=== PATIENT | male | born 1975 | race Two or more races ===

== ENCOUNTER 2018-11-15 17:47 | Inpatient (IN) | payer MEDICAID ==
[~2018-11-15] VITALS: Ht 165.1 cm; Wt 44.9 kg
[2018-11-15 18:00] VITALS: BP 134/84
--- NOTE | 2018-11-15 18:01 | NUR ---
ED Nurse Note: pt brought in to ER by ambulance from street due to hyperglycemia. pt aao x4 and ambulatory but weak. calm and cooperative and fatigued. skin dry but intact. no acute distress noted at this time. pt is in gown and on registered nurse cardiac telemetry.
--- NOTE | 2018-11-15 18:10 | NUR ---
ED Nurse Note: critically high BS results reported to ERMD.
[2018-11-15 18:23] LABS: EOSINOPHILS % (AUTO) 0.8 % (0.0-3.0); HEMATOCRIT 33.9 % (42.0-52.0); HEMOGLOBIN 11.8 G/DL (14.2-18.0); LYMPHOCYTES % (AUTO) 16.8 % (20.0-45.0); MEAN CORPUSCULAR VOLUME 97 FL (80-99); MONOCYTES % (AUTO) 10.3 % (1.0-10.0); NEUTROPHILS % (AUTO) 71.1 % (45.0-75.0); PLATELET COUNT 390 K/UL (150-450); RED BLOOD COUNT 3.48 M/UL (4.70-6.10); RED CELL DISTRIBUTION WIDTH 11.8 % (11.6-14.8); WHITE BLOOD COUNT 5.5 K/UL (4.8-10.8)
--- NOTE | 2018-11-15 18:24 | NUR ---
ED Nurse Note: RT at bedside for ABG.
[2018-11-15 18:51] LABS: ANION GAP 19 mmol/L (5-15); BLOOD UREA NITROGEN 10 mg/dL (7-18); CALCIUM 8.5 MG/DL (8.5-10.1); CARBON DIOXIDE 18 MMOL/L (21-32); CHLORIDE 92 MMOL/L (98-107); CREATININE 0.8 MG/DL (0.55-1.30); POTASSIUM 3.7 MMOL/L (3.5-5.1); SODIUM 129 MMOL/L (136-145)
[2018-11-15 18:53] LABS: ALANINE AMINOTRANSFERASE 15 U/L (12-78); ALBUMIN 2.7 G/DL (3.4-5.0); ALBUMIN/GLOBULIN RATIO 0.6 (1.0-2.7); ALKALINE PHOSPHATASE 416 U/L (46-116); ASPARTATE AMINO TRANSFERASE 16 U/L (15-37); BILIRUBIN,TOTAL 0.4 MG/DL (0.2-1.0)
--- NOTE | 2018-11-15 18:54 | NUR ---
ED Nurse Note: ERMD at bedside.
--- NOTE | 2018-11-15 19:01 | NUR ---
HAND-OFF: Report given to JUSTIN Sesay. no orders to carry at this moment.
--- NOTE | 2018-11-15 19:03 | Emergency Room Report ---
History of Present Illness General Chief Complaint: Abnormal Labs Source: Patient Present Illness HPI Disclaimer: Please note that this report is being documented using [employer] technology. This can lead to erroneous entry secondary to incorrect interpretation by the dictating instrument. HPI: 43-year-old male with history of insulin-dependent diabetes presents for evaluation of abdominal pain, nausea fatigue and elevated glucose readings. Patient states he has not had anything to eat and is felt nauseous for 2 days. He has not had insulin in 2 months. He is a poor historian and provides little history. He is also complaining of left ankle pain. He denies recent illness such as fever, chills, nasal congestion, sore throat. He does note a nonproductive cough. Denies any diarrhea, dysuria. Cannot remember a specific injury to his left ankle. PMH: Insulin-dependent diabetes PSH: Nonspecific knee surgery Allergies: None listed Social Hx: Uses alcohol, smoke cigarettes Allergies: Coded Allergies: No Known Allergies (Unverified , 11/15/18) Nursing Documentation-PM Past Medical History: No History, Except For Hx Diabetes: Yes Review of Systems All Other Systems: negative except mentioned in HPI Physical Exam Vital Signs Date Time Temp Pulse Resp B/P (MAP) Pulse Ox O2 Delivery O2 Flow Rate FiO2 11/15/18 17:41 98.4 100 16 134/84 (101) 96 Room Air General: Awake and alert, appears uncomfortable and fatigued HEENT: NC/AT. EOMI. dry mucous membranes Cardiovascular: Tachycardic. S1 and S2 normal. No murmur appreciated Resp: Normal work of breathing. No cough, wheezing or crackles appreciated Abdomen: Abdomen is soft, nondistended. I will tenderness palpation in the epigastrium. No masses. No guarding Skin: Intact. No abrasions, laceration or rash over the exposed skin MSK: Palpation of the anterior and posterior element of the medial malleolus of the left ankle. Moderate edema. Neuro: Awake and alert. Mentating appropriately. Procedures Critical Care Time Critical Care Time Total critical care time: Approximately 45 minutes Due to a high probability of clinically significant, life threatening deterioration, the patient required the highest level of preparedness to intervene emergently and I personally spent this critical care time directly and personally managing the patient. This critical care time included obtaining a history, examining the patient, pulse oximetry, ordering and reviewing studies , ordering treatments, evaluating response to treatment and updating management plan as needed, frequent reassessment and discussion with other providers as well as arranging for ultimate disposition. This critical to care time was performed to assess and manage the high probability of life-threatening deterioration that could result in multiorgan failure. This critical care time is separate from the separately billable procedures and treating other patients. Medical Decision Making Diagnostic Impression: Primary Impression: Hyperglycemia ER Course 43-year-old male presents for evaluation of multiple complaints including hyperglycemia noted by EMS after 2 months of not having any insulin. Concern for DKA at this time. Lab work ordered immediately on patient arrival. Will start IV fluids. Will wait for potassium and then start insulin as needed. We will also obtain x-ray of the left ankle. Laboratory Tests Test 11/15/18 18:12 11/15/18 18:20 11/15/18 19:06 White Blood Count 5.5 K/UL (4.8-10.8) Red Blood Count 3.48 M/UL (4.70-6.10) L Hemoglobin 11.8 G/DL (14.2-18.0) L Hematocrit 33.9 % (42.0-52.0) L Mean Corpuscular Volume 97 FL (80-99) Mean Corpuscular Hemoglobin 34.0 PG (27.0-31.0) H Mean Corpuscular Hemoglobin Concent 34.9 G/DL (32.0-36.0) Red Cell Distribution Width 11.8 % (11.6-14.8) Platelet Count 390 K/UL (150-450) Mean Platelet Volume 4.4 FL (6.5-10.1) L Neutrophils (%) (Auto) 71.1 % (45.0-75.0) Lymphocytes (%) (Auto) 16.8 % (20.0-45.0) L Monocytes (%) (Auto) 10.3 % (1.0-10.0) H Eosinophils (%) (Auto) 0.8 % (0.0-3.0) Basophils (%) (Auto) 1.0 % (0.0-2.0) Sodium Level 129 MMOL/L (136-145) L Potassium Level 3.7 MMOL/L (3.5-5.1) Chloride Level 92 MMOL/L (98-107) L Carbon Dioxide Level 18 MMOL/L (21-32) L Anion Gap 19 mmol/L (5-15) H Blood Urea Nitrogen 10 mg/dL (7-18) Creatinine 0.8 MG/DL (0.55-1.30) Estimate Glomerular Filtration Rate > 60 mL/min (>60) Glucose Level 903 MG/DL (74-106) *H Calcium Level 8.5 MG/DL (8.5-10.1) Magnesium Level 2.0 MG/DL (1.8-2.4) Total Bilirubin 0.4 MG/DL (0.2-1.0) Aspartate Amino Transferase (AST) 16 U/L (15-37) Alanine Aminotransferase (ALT) 15 U/L (12-78) Alkaline Phosphatase 416 U/L (46-116) H Total Protein 6.9 G/DL (6.4-8.2) Albumin 2.7 G/DL (3.4-5.0) L Globulin 4.2 g/dL Albumin/Globulin Ratio 0.6 (1.0-2.7) L Acetone Level Positive-small (NEGATIVE) Arterial Blood pH 7.317 (7.350-7.450) Arterial Blood Partial Pressure CO2 30.0 mmHg (35.0-45.0) L Arterial Blood Partial Pressure O2 100.4 mmHg (75.0-100.0) H Arterial Blood HCO3 15.0 mmol/L (22.0-26.0) *L Arterial Blood Oxygen Saturation 96.5 % (95-100) Arterial Blood Base Excess -10.0 (-2-2) *L Haris Test Positive Urine Color Pale yellow Urine Appearance Clear Urine pH 6 (4.5-8.0) Urine Specific [place] 1.005 (1.005-1.035) Urine Protein Negative (NEGATIVE) Urine Glucose (UA) 4+ (NEGATIVE) H Urine Ketones 3+ (NEGATIVE) H Urine Blood Negative (NEGATIVE) Urine Nitrite Negative (NEGATIVE) Urine Bilirubin Negative (NEGATIVE) Urine Urobilinogen Normal MG/DL (0.0-1.0) Urine Leukocyte Esterase Negative (NEGATIVE) EKG Diagnostic Results EKG Time: 19:30 Rate: normal Rhythm: NSR ST Segments: no acute changes Other Impression Sinus rhythm, borderline tachycardia. Right axis. Normal intervals. No ischemic changes. Rhythm Strip Diag. Results Rhythm Strip Time: 19:30 EP Interpretation: yes Rate: 90s Rhythm: NSR, no PVC's, no ectopy Chest X-Ray Diagnostic Results Chest X-Ray Diagnostic Results : # of Views/Limited/Complete: 1 View Indication: Chest Pain Interpretation: no consolidation, no effusion, no pneumothorax Impression: No acute disease Electronically Signed by: Electronically signed by Dr. Abdoulaye Byrne Reevaluation Time: 21:41 Last Vital Signs Date Time Temp Pulse Resp B/P (MAP) Pulse Ox O2 Delivery O2 Flow Rate FiO2 11/15/18 18:23 115 16 Room Air 11/15/18 18:00 98.4 134/84 96 Status: improved Reevaluation Impression Patient found to be significantly hyperglycemic with a small gap but no significant acidosis. He was briefly put on an insulin drip and continue to receive IV fluids potassium repletion. His blood sugar quickly dropped and he was taken off insulin drip. Patient was continued on IV fluids. His pressures were initially soft in the low 90s and high 80s systolic however they continued to improve after IV fluids. He will be admitted to the stepdown unit for hyperglycemia. X-rays of the foot showed previous hardware but does not obviously show periprosthetic fracture. He will be admitted for further monitoring. Disposition: ADMITTED INPATIENT Condition: Serious Scripts No Active Prescriptions or Reported Meds Abdoulaye Byrne MD Nov 15, 2018 19:03
--- NOTE | 2018-11-15 19:12 | NUR ---
ED Nurse Note: Received report from Elio ANDERSON. Urine sent to labs.
[2018-11-15 19:15] VITALS: BP 103/78
[2018-11-15] MEDS ORDERED: NS w/KCl 20mEq 1000ml 1,000 ML IV ONE (19:30)
[2018-11-15 19:49] LABS: APPEARANCE,URINE CLEAR; BILIRUBIN, URINE NEGATIVE (NEGATIVE); COLOR,URINE PALE YELLOW; GLUCOSE, URINE (UA) 4+ (NEGATIVE); KETONES,URINE 3+ (NEGATIVE); LEUKOCYTE ESTERASE ,URINE NEGATIVE (NEGATIVE); NITRITE,URINE NEGATIVE (NEGATIVE); PH,URINE 6 (4.5-8.0); PROTEIN,URINE NEGATIVE (NEGATIVE); UROBILINOGEN,URINE NORMAL MG/DL (0.0-1.0)
[2018-11-15 21:36] VITALS: BP 101/74
--- NOTE | 2018-11-15 21:40 | NUR ---
ED Nurse Note: Patient's BP 86/53. MD made aware. Waiting for new orders.
[2018-11-15 21:53] VITALS: BP 96/56
--- NOTE | 2018-11-15 22:00 | NUR ---
ED Nurse Note: per ermd, stop insulin per Dr. Vee requestion d/t low anion gap. Will await further orders
[2018-11-15] MEDS ORDERED: Insulin Human Regular 100units/ml 3ml ONE (22:11)
[2018-11-15 22:13] VITALS: BP 105/60
[2018-11-15] MEDS ORDERED: Insulin Human Regular 100units/ml 3ml IV ONE (22:15)
--- NOTE | 2018-11-15 22:15 | NUR ---
ED Nurse Note: Received verbal order to DC regular insulin. BS 275.
--- NOTE | 2018-11-15 22:30 | NUR ---
ED Nurse Note: Dr. Brito at bedside.
--- NOTE | 2018-11-15 22:58 | NUR ---
ED Nurse Note: Xray done at bedside.
[2018-11-15 23:01] VITALS: BP 109/74
--- NOTE | 2018-11-15 23:30 | NUR ---
NURSE NOTES: Dr. Lanier is here to give me admission orders.
--- NOTE | 2018-11-15 23:38 | NUR ---
TRANSFER TO FLOOR: Patient transferred to SDU unit, Report given to Kj ANDERSON. Patient is alert and oriented, verbally responsive. Afebrile. No SOB. Breathing even and unlabored. On Kcl 20meq patent and infusing well. With left and right upper arm IV line 20g patent and intact. Belongings was given to the patient.
--- NOTE | 2018-11-15 23:58 | NUR ---
NURSE NOTES: Patient receivedfrom [employer]OR. Patient is alert and oriented X 4. Patient has Right and L upper arms 20G IV. Patient has Left foot that is more swollen than the right foot. Patient is able to make needs known. Current VS 89/56, HR 84 NSR, 98.1F, RR 165, SpO2 98% while on room air. SDU Admission glucose is 282. Will continue to monitor.
[2018-11-16] VITALS (7 sets, daily range): BP systolic 89–106; BP diastolic 49–60
--- NOTE | 2018-11-16 00:01 | NUR ---
NURSE NOTES: NS hung [id number].
--- NOTE | 2018-11-16 02:00 | NUR ---
NURSE NOTES: Patient is sleeping, no sign of any pain per FLACC score of 0/10. Patients BP is 90/56, HR is 86 NSR, Spo2 100%. Patient is easily arousable to command.
--- NOTE | 2018-11-16 04:00 | NUR ---
NURSE NOTES: Blood drawn and sent to lab. Patient remains stable at this, BP is 96/49 HR is 76 NSR, afebrile. Patient is sleeping and easily arousable. Will continue to monitor.
[2018-11-16 04:47] LABS: BASOPHILS % (AUTO) 1.6 % (0.0-2.0); EOSINOPHILS % (AUTO) 3.1 % (0.0-3.0); HEMATOCRIT 33.1 % (42.0-52.0); HEMOGLOBIN 11.3 G/DL (14.2-18.0); LYMPHOCYTES % (AUTO) 30.7 % (20.0-45.0); MEAN CORPUSCULAR VOLUME 100 FL (80-99); MONOCYTES % (AUTO) 9.9 % (1.0-10.0); NEUTROPHILS % (AUTO) 54.6 % (45.0-75.0); PLATELET COUNT 383 K/UL (150-450); RED BLOOD COUNT 3.32 M/UL (4.70-6.10); RED CELL DISTRIBUTION WIDTH 11.9 % (11.6-14.8)
[2018-11-16 05:04] LABS: ANION GAP 8 mmol/L (5-15); BLOOD UREA NITROGEN 5 mg/dL (7-18); CALCIUM 7.4 MG/DL (8.5-10.1); CARBON DIOXIDE 24 MMOL/L (21-32); CHLORIDE 110 MMOL/L (98-107); CREATININE 0.3 MG/DL (0.55-1.30); POTASSIUM 3.1 MMOL/L (3.5-5.1); SODIUM 142 MMOL/L (136-145)
[2018-11-16] MEDS: NovoLOG Insulin Flexpen SUBQ SCH ×7 (05:06→20:51)
--- NOTE | 2018-11-16 06:00 | NUR ---
NURSE NOTES: Glucose is 192, coverage provided.
--- NOTE | 2018-11-16 06:27 | NUR ---
NURSE NOTES: Dr. Rivera ordered 8 units novolog scheduled ACHS
--- NOTE | 2018-11-16 06:59 | NUR ---
HAND-OFF: Report given to Radha ANDERSON. Patient alert upon command. HR remains NSR. No distress at this time. Endorsed plan of care to oncoming RN.
--- NOTE | 2018-11-16 07:00 | NUR ---
NURSE NOTES: Received report from JUSTIN Penaloza. Observed patient in bed, asleep, arousable to verbal stimuli; mostly [place] speaking. On room air, no acute respiratory distress noted. Left upper arm IV intact and patent with IV fluids infusing at prescribed rate. No s/s of pain/discomfort at this time. Safety precautions in place,bed locked, alarmed, and in lowest position, side rails up x3 and call light within reach. Will continue to monitor.
--- NOTE | 2018-11-16 07:32 | General Progress Note ---
Assessment/Plan Problem List: (1) Diabetes mellitus with ketoacidosis ICD Codes: E11.10 - Type 2 diabetes mellitus with ketoacidosis without coma SNOMED: 31487424, 800835162 (2) Hyperglycemia ICD Codes: R73.9 - Hyperglycemia, unspecified SNOMED: 58597882 (3) Nausea & vomiting ICD Codes: R11.2 - Nausea with vomiting, unspecified SNOMED: 30969129 (4) Abdominal pain ICD Codes: R10.9 - Unspecified abdominal pain SNOMED: 08621171 Assessment/Plan: treat for DKA nausea most likely due to above fu labs on ADA diet will fu Subjective ROS Limited/Unobtainable: Yes Allergies: Coded Allergies: No Known Allergies (Unverified , 11/15/18) Objective Last 24 Hour Vital Signs Date Time Temp Pulse Resp B/P (MAP) Pulse Ox O2 Delivery O2 Flow Rate FiO2 11/16/18 04:00 84 11/16/18 04:00 97.8 76 20 96/49 (65) 97 11/16/18 04:00 Room Air 11/16/18 00:30 90 16 91/57 (68) 99 11/16/18 00:00 98.1 84 20 89/56 (67) 97 11/16/18 00:00 Room Air 11/16/18 00:00 Room Air 11/16/18 00:00 86 11/15/18 23:38 98.2 98 15 109/74 100 Room Air 11/15/18 23:01 98.2 98 15 109/74 100 Room Air 11/15/18 22:13 91 18 105/60 100 Room Air 11/15/18 21:53 90 21 96/56 100 Room Air 11/15/18 21:36 98.5 89 18 101/74 100 Room Air 11/15/18 19:15 98.5 104 25 103/78 99 Room Air 11/15/18 18:23 115 16 Room Air 11/15/18 18:00 98.4 115 16 134/84 96 Room Air 11/15/18 17:41 98.4 100 16 134/84 (101) 96 Room Air Intake and Output 11/15/18 11/16/18 18:59 06:59 Intake Total 0 ml 1825 ml Output Total 300 ml Balance 0 ml 1525 ml Intake Oral 0 ml IV Total 1825 ml Output Urine Total 300 ml # Voids 1 Laboratory Tests 11/15/18 18:12: White Blood Count 5.5, Red Blood Count 3.48L, Hemoglobin 11.8L, Hematocrit 33.9L , Mean Corpuscular Volume 97, Mean Corpuscular Hemoglobin 34.0H, Mean Corpuscular Hemoglobin Concent 34.9, Red Cell Distribution Width 11.8, Platelet Count 390, Mean Platelet Volume 4.4L, Neutrophils (%) (Auto) 71.1, Lymphocytes ( %) (Auto) 16.8L, Monocytes (%) (Auto) 10.3H, Eosinophils (%) (Auto) 0.8, Basophils (%) (Auto) 1.0, Sodium Level 129L, Potassium Level 3.7, Chloride Level 92L, Carbon Dioxide Level 18L, Anion Gap 19H, Blood Urea Nitrogen 10, Creatinine 0.8, Estimat Glomerular Filtration Rate > 60, Glucose Level 903*H, Calcium Level 8.5, Magnesium Level 2.0, Total Bilirubin 0.4, Aspartate Amino Transf (AST/SGOT) 16, Alanine Aminotransferase (ALT/SGPT) 15, Alkaline Phosphatase 416H, Total Protein 6.9, Albumin 2.7L, Globulin 4.2, Albumin/ Globulin Ratio 0.6L, Acetone Level Positive-small 11/15/18 18:20: Arterial Blood pH 7.317L, Arterial Blood Partial Pressure CO2 30.0L, Arterial Blood Partial Pressure O2 100.4H, Arterial Blood HCO3 15.0*L, Arterial Blood Oxygen Saturation 96.5, Arterial Blood Base Excess -10.0*L, Haris Test Positive 11/15/18 19:06: Urine Color Pale yellow, Urine Appearance Clear, Urine pH 6, Urine Specific [place] 1.005, Urine Protein Negative, Urine Glucose (UA) 4+H, Urine Ketones 3+H , Urine Blood Negative, Urine Nitrite Negative, Urine Bilirubin Negative, Urine Urobilinogen Normal, Urine Leukocyte Esterase Negative 11/16/18 04:00: White Blood Count 6.0, Red Blood Count 3.32L, Hemoglobin 11.3L, Hematocrit 33.1L , Mean Corpuscular Volume 100H, Mean Corpuscular Hemoglobin 34.1H, Mean Corpuscular Hemoglobin Concent 34.2, Red Cell Distribution Width 11.9, Platelet Count 383, Mean Platelet Volume 4.7L, Neutrophils (%) (Auto) 54.6, Lymphocytes ( %) (Auto) 30.7, Monocytes (%) (Auto) 9.9, Eosinophils (%) (Auto) 3.1H, Basophils (%) (Auto) 1.6, Sodium Level 142#, Potassium Level 3.1L, Chloride Level 110H, Carbon Dioxide Level 24, Anion Gap 8, Blood Urea Nitrogen 5L, Creatinine 0.3#L, Estimat Glomerular Filtration Rate > 60, Glucose Level 198#H, Calcium Level 7.4L, Magnesium Level [Pending], Total Bilirubin [Pending], Aspartate Amino Transf (AST/SGOT) [Pending], Alanine Aminotransferase (ALT/SGPT ) [Pending], Alkaline Phosphatase [Pending], Total Protein [Pending], Albumin [ Pending], Hemoglobin A1c 13.1H, Uric Acid [Pending], Phosphorus Level [Pending] , Iron Level [Pending], Unsaturated Iron Binding [Pending], Ferritin [Pending], Direct Bilirubin [Pending], Triglycerides Level [Pending], Cholesterol Level [ Pending], LDL Cholesterol [Pending], HDL Cholesterol [Pending], Cholesterol/HDL Ratio [Pending], Vitamin B12 Level [Pending], Folate [Pending] Height (Feet): 5 Height (Inches): 5.00 Weight (Pounds): 100 General Appearance: alert EENT: PERRL/EOMI Neck: supple Cardiovascular: normal rate Respiratory/Chest: lungs clear Abdomen: normal bowel sounds, non tender, soft Extremities: non-tender Surjit Car MD Nov 16, 2018 07:32
[2018-11-16 07:41] LABS: ALANINE AMINOTRANSFERASE 12 U/L (12-78); ALKALINE PHOSPHATASE 315 U/L (46-116); ASPARTATE AMINO TRANSFERASE 17 U/L (15-37); BILIRUBIN,DIRECT < 0.1 MG/DL (0.0-0.3); BILIRUBIN,TOTAL 0.2 MG/DL (0.2-1.0); CHOLESTEROL 150 MG/DL (< 200); HDL CHOLESTEROL 42 MG/DL (40-60); PHOSPHORUS 2.8 MG/DL (2.5-4.9); TRIGLYCERIDES 68 MG/DL (30-150)
--- NOTE | 2018-11-16 08:46 | Pulmonology Progress Note ---
Assessment/Plan Assessment/Plan Pulmonary Consultation HPI Patient is a 43-year old man with history of Insulin Dependent Diabetes Mellitus who presents with DKA, c/o abdominal pain, nausea fatigue and elevated glucose readings. He has not had insulin in 2 months. He is also complaining of left ankle pain. He denies recent illness such as fever, chills, nasal congestion, sore throat. He does note a nonproductive cough. Denies any diarrhea, dysuria. Denies injury. PMH: Insulin Dependent Diabetes Mellitus PSH: Nonspecific knee surgery Allergies: NKDA Social Hx: Uses alcohol, smoke cigarettes All Other Systems: negative except mentioned in HPI Physical Exam Vital Signs Noted Date Time Temp Pulse Resp B/P (MAP) Pulse Ox O2 Delivery O2 Flow Rate FiO2 11/15/18 17:41 98.4 100 16 134/84 (101) 96 Room Air General: Awake and alert, appears uncomfortable and fatigued HEENT: NC/AT. EOMI. dry mucous membranes Cardiovascular: Tachycardic. S1 and S2 normal. No murmur appreciated Resp: Normal work of breathing. No cough, wheezing or crackles appreciated Abdomen: Abdomen is soft, nondistended. Somel tenderness palpation in the epigastrium. No masses. No guarding Skin: Intact. No abrasions, laceration or rash over the exposed skin MSK: Palpation of the anterior and posterior element of the medial malleolus of the left ankle. Some edema. Neuro: Awake and alert. Mentating appropriately. Impression: Insulin Dependent Diabetes Mellitus DKA, Hyperglycemia Ankle pain Plan: IVF Insulin gtt in ED - subsequently SQ Insulin - Lantus and ISS CXR negative for infiltrate Monitor labs PPX Test 11/15/18 18:12 11/15/18 18:20 11/15/18 19:06 White Blood Count 5.5 K/UL (4.8-10.8) Red Blood Count 3.48 M/UL (4.70-6.10) L Hemoglobin 11.8 G/DL (14.2-18.0) L Hematocrit 33.9 % (42.0-52.0) L Mean Corpuscular Volume 97 FL (80-99) Mean Corpuscular Hemoglobin 34.0 PG (27.0-31.0) H Mean Corpuscular Hemoglobin Concent 34.9 G/DL (32.0-36.0) Red Cell Distribution Width 11.8 % (11.6-14.8) Platelet Count 390 K/UL (150-450) Mean Platelet Volume 4.4 FL (6.5-10.1) L Neutrophils (%) (Auto) 71.1 % (45.0-75.0) Lymphocytes (%) (Auto) 16.8 % (20.0-45.0) L Monocytes (%) (Auto) 10.3 % (1.0-10.0) H Eosinophils (%) (Auto) 0.8 % (0.0-3.0) Basophils (%) (Auto) 1.0 % (0.0-2.0) Sodium Level 129 MMOL/L (136-145) L Potassium Level 3.7 MMOL/L (3.5-5.1) Chloride Level 92 MMOL/L (98-107) L Carbon Dioxide Level 18 MMOL/L (21-32) L Anion Gap 19 mmol/L (5-15) H Blood Urea Nitrogen 10 mg/dL (7-18) Creatinine 0.8 MG/DL (0.55-1.30) Estimate Glomerular Filtration Rate > 60 mL/min (>60) Glucose Level 903 MG/DL (74-106) *H Calcium Level 8.5 MG/DL (8.5-10.1) Magnesium Level 2.0 MG/DL (1.8-2.4) Total Bilirubin 0.4 MG/DL (0.2-1.0) Aspartate Amino Transferase (AST) 16 U/L (15-37) Alanine Aminotransferase (ALT) 15 U/L (12-78) Alkaline Phosphatase 416 U/L (46-116) H Total Protein 6.9 G/DL (6.4-8.2) Albumin 2.7 G/DL (3.4-5.0) L Globulin 4.2 g/dL Albumin/Globulin Ratio 0.6 (1.0-2.7) L Acetone Level Positive-small (NEGATIVE) Arterial Blood pH 7.317 (7.350-7.450) Arterial Blood Partial Pressure CO2 30.0 mmHg (35.0-45.0) L Arterial Blood Partial Pressure O2 100.4 mmHg (75.0-100.0) H Arterial Blood HCO3 15.0 mmol/L (22.0-26.0) *L Arterial Blood Oxygen Saturation 96.5 % (95-100) Arterial Blood Base Excess -10.0 (-2-2) *L Haris Test Positive Urine Color Pale yellow Urine Appearance Clear Urine pH 6 (4.5-8.0) Urine Specific [place] 1.005 (1.005-1.035) Urine Protein Negative (NEGATIVE) Urine Glucose (UA) 4+ (NEGATIVE) H Urine Ketones 3+ (NEGATIVE) H Urine Blood Negative (NEGATIVE) Urine Nitrite Negative (NEGATIVE) Urine Bilirubin Negative (NEGATIVE) Urine Urobilinogen Normal MG/DL (0.0-1.0) Urine Leukocyte Esterase Negative (NEGATIVE) EKG: Rate: normal Rhythm: NSR, no acute changes. Normal intervals. No ischemic changes. Chest X-Ray no consolidation, no effusion, no pneumothorax X-rays of the foot: previous hardware but does not obviously show periprosthetic fracture. He will be admitted for further monitoring. Subjective ROS Limited/Unobtainable: No Allergies: Coded Allergies: No Known Allergies (Unverified , 11/15/18) Objective Last 24 Hour Vital Signs Date Time Temp Pulse Resp B/P (MAP) Pulse Ox O2 Delivery O2 Flow Rate FiO2 11/16/18 04:00 84 11/16/18 04:00 97.8 76 20 96/49 (65) 97 11/16/18 04:00 Room Air 11/16/18 00:30 90 16 91/57 (68) 99 11/16/18 00:00 98.1 84 20 89/56 (67) 97 11/16/18 00:00 Room Air 11/16/18 00:00 Room Air 11/16/18 00:00 86 11/15/18 23:38 98.2 98 15 109/74 100 Room Air 11/15/18 23:01 98.2 98 15 109/74 100 Room Air 11/15/18 22:13 91 18 105/60 100 Room Air 11/15/18 21:53 90 21 96/56 100 Room Air 11/15/18 21:36 98.5 89 18 101/74 100 Room Air 11/15/18 19:15 98.5 104 25 103/78 99 Room Air 11/15/18 18:23 115 16 Room Air 11/15/18 18:00 98.4 115 16 134/84 96 Room Air 11/15/18 17:41 98.4 100 16 134/84 (101) 96 Room Air Intake and Output 11/15/18 11/16/18 18:59 06:59 Intake Total 0 ml 1825 ml Output Total 300 ml Balance 0 ml 1525 ml Intake Oral 0 ml IV Total 1825 ml Output Urine Total 300 ml # Voids 1 Microbiology Date/Time Source Procedure Growth Status 11/15/18 20:17 Rectum Received Laboratory Tests 11/15/18 18:12: White Blood Count 5.5, Red Blood Count 3.48L, Hemoglobin 11.8L, Hematocrit 33.9L , Mean Corpuscular Volume 97, Mean Corpuscular Hemoglobin 34.0H, Mean Corpuscular Hemoglobin Concent 34.9, Red Cell Distribution Width 11.8, Platelet Count 390, Mean Platelet Volume 4.4L, Neutrophils (%) (Auto) 71.1, Lymphocytes ( %) (Auto) 16.8L, Monocytes (%) (Auto) 10.3H, Eosinophils (%) (Auto) 0.8, Basophils (%) (Auto) 1.0, Sodium Level 129L, Potassium Level 3.7, Chloride Level 92L, Carbon Dioxide Level 18L, Anion Gap 19H, Blood Urea Nitrogen 10, Creatinine 0.8, Estimat Glomerular Filtration Rate > 60, Glucose Level 903*H, Calcium Level 8.5, Magnesium Level 2.0, Total Bilirubin 0.4, Aspartate Amino Transf (AST/SGOT) 16, Alanine Aminotransferase (ALT/SGPT) 15, Alkaline Phosphatase 416H, Total Protein 6.9, Albumin 2.7L, Globulin 4.2, Albumin/ Globulin Ratio 0.6L, Acetone Level Positive-small 11/15/18 18:20: Arterial Blood pH 7.317L, Arterial Blood Partial Pressure CO2 30.0L, Arterial Blood Partial Pressure O2 100.4H, Arterial Blood HCO3 15.0*L, Arterial Blood Oxygen Saturation 96.5, Arterial Blood Base Excess -10.0*L, Haris Test Positive 11/15/18 19:06: Urine Color Pale yellow, Urine Appearance Clear, Urine pH 6, Urine Specific [place] 1.005, Urine Protein Negative, Urine Glucose (UA) 4+H, Urine Ketones 3+H , Urine Blood Negative, Urine Nitrite Negative, Urine Bilirubin Negative, Urine Urobilinogen Normal, Urine Leukocyte Esterase Negative 11/16/18 04:00: White Blood Count 6.0, Red Blood Count 3.32L, Hemoglobin 11.3L, Hematocrit 33.1L , Mean Corpuscular Volume 100H, Mean Corpuscular Hemoglobin 34.1H, Mean Corpuscular Hemoglobin Concent 34.2, Red Cell Distribution Width 11.9, Platelet Count 383, Mean Platelet Volume 4.7L, Neutrophils (%) (Auto) 54.6, Lymphocytes ( %) (Auto) 30.7, Monocytes (%) (Auto) 9.9, Eosinophils (%) (Auto) 3.1H, Basophils (%) (Auto) 1.6, Sodium Level 142#, Potassium Level 3.1L, Chloride Level 110H, Carbon Dioxide Level 24, Anion Gap 8, Blood Urea Nitrogen 5L, Creatinine 0.3#L, Estimat Glomerular Filtration Rate > 60, Glucose Level 198#H, Calcium Level 7.4L, Magnesium Level 1.7L, Total Bilirubin 0.2, Aspartate Amino Transf (AST/SGOT) 17, Alanine Aminotransferase (ALT/SGPT) 12, Alkaline Phosphatase 315H, Total Protein 5.2L, Albumin 2.0L, Hemoglobin A1c 13.1H, Uric Acid 1.9L, Phosphorus Level 2.8, Iron Level [Pending], Unsaturated Iron Binding [Pending], Ferritin [Pending], Direct Bilirubin < 0.1, Triglycerides Level 68, Cholesterol Level 150, LDL Cholesterol 89, HDL Cholesterol 42, Cholesterol/HDL Ratio 3.6, Vitamin B12 Level [Pending], Folate [Pending] Current Medications Medications (Trade) Dose Ordered Sig/Yasemin Route PRN Reason Start Time Stop Time Status Last Admin Dose Admin Acetaminophen (Tylenol) 650 mg Q6H PRN ORAL Mild Pain/Temp > 100.5 11/15/18 23:15 12/15/18 23:14 Dextrose (Dextrose 50%) 25 ml Q30M PRN IV Hypoglycemia 11/15/18 23:15 12/15/18 23:14 Dextrose (Dextrose 50%) 50 ml Q30M PRN IV Hypoglycemia 11/15/18 23:15 12/15/18 23:14 Heparin Sodium (Porcine) (Heparin 5000 units/ml) 5,000 units EVERY 12 HOURS SUBQ 11/16/18 09:00 12/16/18 08:59 Insulin Aspart (NovoLOG) BEFORE MEALS AND HS SUBQ 11/16/18 06:30 12/16/18 06:29 11/16/18 05:06 Insulin Aspart (NovoLOG) 8 units NOVOTIAC SUBQ 11/16/18 06:30 12/16/18 06:29 11/16/18 06:38 Insulin Detemir (Levemir) 20 units BID SUBQ 11/16/18 09:00 12/16/18 08:59 Ondansetron HCl (Zofran) 4 mg Q6H PRN IVP Nausea & Vomiting 11/15/18 23:15 12/15/18 23:14 Potassium Chloride 100 ml @ 100 mls/hr Q1HR IVPB 11/16/18 08:00 11/16/18 11:59 11/16/18 07:45 Sodium Chloride 1,000 ml @ 100 mls/hr Q10H ONCE IV 11/15/18 23:15 11/16/18 09:14 11/15/18 23:56 Solomon Lanier MD Nov 16, 2018 08:46
[2018-11-16 08:47] LABS: FERRITIN 310 NG/ML (8-388)
[2018-11-16] MEDS ORDERED: Levemir Flexpen SUBQ SCH (09:00)
[2018-11-16] MEDS ORDERED: Heparin 5000 units/ml inj SUBQ SCH (09:00)
--- NOTE | 2018-11-16 09:00 | NUR ---
NURSE NOTES: Blood glucose done at bedside for scheduled Levemir at 0900. Blood glucose test 39, critically low. Test repeated, 43. D50% 50ml given per protocol. Patient is awake, eating breakfast, no change in LOC. Levemir held. Will recheck blood glucose in 15 minutes per protocol.
--- NOTE | 2018-11-16 09:30 | NUR ---
NURSE NOTES: Blood sugar rechecked, 193. Will continue to monitor.
[2018-11-16 09:46] LABS: % IRON SATURATION 26 % (15-50); IRON 30 ug/dL (50-175); TOTAL IRON BINDING CAPACITY 116 ug/dL (250-450)
--- NOTE | 2018-11-16 10:14 | NUR ---
NURSE NOTES: Called and informed Dr Rivera regarding patient's blood sugar this morning and that Levemir was held. Dr Rivera ordered to discontinue Levemir. Noted and carried out. Will continue to monitor patient.
--- NOTE | 2018-11-16 10:30 | NUR ---
RD ASSESSMENT & RECOMMENDATIONS SEE CARE ACTIVITY FOR COMPLETE ASSESSMENT DAILY ESTIMATED NEEDS: Needs based on DM, underweight 47kg 25-35 kcals/kg 7142-8563 total kcals 1-1.5 g protein/kg 47-71 g total protein 25-30 mL/kg 4876-9836 total fluid mLs NUTRITION DIAGNOSIS: Altered nutrition related lab values r/t DKA as evidenced by (+) acetone on adm, 4+ uglu, A1c 13.1, BG >900 on adm, pt is insulin dep. CUR[facility]ET: [facility] PO DIET RECOMMENDATIONS: [facility] LOW + DOUBLE PROTEIN PORTIONS ADDITIONAL RECOMMENDATIONS: 1) Obtain a standing weight and height as able 2) Add B-complex qdaily for glucose metabolism 3) Monitor lytes daily- replete as needed (low K, low Mg) 4) Diet edu as able, as appropriate 5) 1 carb/ high pro snack in b/w meals
--- NOTE | 2018-11-16 11:41 | Diagnostic Imaging Report ---
Indication: Left ankle pain Technique: 3 views of the left ankle Comparison: None Findings: Old healed fracture deformities of the mid to distal tibia and fibula are noted. There is bone seen bridging the tibia and fibula. Axillary zoila is seen within the tibia. There is a fracture deformity of the distal fibula, which appears ununited. There is overlying soft tissue swelling. There are fairly extensive vascular calcifications Impression: Distal fibular fracture deformity, age-indeterminate. Correlate with clinical findings Posttraumatic and postsurgical changes of the tibial and fibular shafts, as described
--- NOTE | 2018-11-16 11:44 | Diagnostic Imaging Report ---
Indication: Left foot pain Technique: 3 views left foot Comparison: none Findings: The bones are osteoporotic. The joint spaces are preserved. There is surgical hardware and traumatic deformities of the distal ankle. No acute foot fractures. No dislocations. Impression: Osteoporosis. No acute bony trauma Please refer to separate ankle radiograph report.
--- NOTE | 2018-11-16 12:48 | Diagnostic Imaging Report ---
Indication: Shortness of breath Technique: One view of the chest Comparison: none Findings: Lungs and pleural spaces are clear. Heart size is normal Impression: No acute process
--- NOTE | 2018-11-16 17:00 | NUR ---
TRANSFER TO FLOOR: Patient transferred to Med-Surg room 418-2, per Dr Vee. Report given to JUSTIN Andrea. Belongings list signed and acknowledged by receiving nurse; medications given to JUSTIN Andrea. Patient in stable condition.
[2018-11-16] MEDS ORDERED: NS 275ml ONE (17:06)
[2018-11-16] MEDS ORDERED: Tubing IV Secondary IV ONE (17:06)
--- NOTE | 2018-11-16 17:13 | NUR ---
NURSE NOTES: NURSE NOTES: Received report from Marjan RN, pt transfer from [facility], pt awake, A/O x 4, calm and cooperative. belonging with pt. last BS 289 per Marjan ANDERSON, last BM 11/16/2018, voiding. call light within reach. fall precaution maintained. will continue to monitor.
--- NOTE | 2018-11-16 18:00 | Consultation ---
DATE OF CONSULTATION: 11/16/2018 ENDOCRINOLOGY CONSULTATION CONSULTING PHYSICIAN: Merrick Rivera M.D. REFERRING PHYSICIAN: Klever Vee M.D. REASON FOR CONSULTATION: Diabetes management. HISTORY OF PRESENT ILLNESS: It is important that the patient is a poor historian, who presented to the hospital with abdominal pain, nausea, fatigue, and elevated glucose reading. The patient was ill for the past 2 days. He has not been using insulin for the past 3 nights. On presentation, glucose was 903 with anion gap of 19. The patient had sodium of 129 and was treated with IV fluids and IV insulin. Repeat laboratories revealed resolution of anion gap and a bicarbonate raised from 18 to 24, glucose dropped to 198. Hemoglobin A1c is 13. The patient's creatinine was normal. The CBC shows WBC of 86, hemoglobin 11, hematocrit 33, platelets of 383,000. PAST MEDICAL HISTORY: Insulin-dependent diabetes. PAST SURGICAL HISTORY: None. MEDICATIONS: reviewed ALLERGIES TO MEDICATION: None. FAMILY HISTORY: Noncontributory. SOCIAL HISTORY: No active smoking, alcohol, or drug use. REVIEW OF SYSTEMS: Difficult to obtain, but so far negative. PHYSICAL EXAMINATION: VITAL SIGNS: Blood pressure 96/49, pulse 84, temperature of 97.8, and respiratory rate of 20. HEENT: Pupils are reactive to light. Sclerae are anicteric. NECK: No JVD. HEART: Regular. LUNGS: Clear. ABDOMEN: Positive bowel sounds. EXTREMITIES: Positive for edema. DIAGNOSES: 1. Diabetic ketoacidosis, mild and resolved. 2. Diabetes, out of control, insulin dependent. 3. Hyponatremia, resolved. DISCUSSION: 1. Continue Levemir 20 units b.i.d. 2. Add NovoLog 8 units before each meal. Hold if the patient is not eating. 3. NovoLog sliding scale at bedtime. 4. Further adjustment according to the blood glucose values. Thank you Dr. Vee, for the courtesy of this consultation. Merrick Rivera M.D. DR: YOHANA JOB#: [id number] CC: JANAE
--- NOTE | 2018-11-16 19:23 | Cardiology Progress Note ---
Assessment/Plan Assessment/Plan The patient is seen and examined, full cardiac consult note will be dictated shortly. Objective Last 24 Hour Vital Signs Date Time Temp Pulse Resp B/P (MAP) Pulse Ox O2 Delivery O2 Flow Rate FiO2 11/16/18 16:00 88 11/16/18 16:00 98.6 81 18 106/52 (70) 100 11/16/18 16:00 Room Air 11/16/18 12:00 Room Air 11/16/18 12:00 97.9 73 18 92/60 (71) 99 11/16/18 12:00 74 11/16/18 08:00 97.6 86 18 102/57 (72) 98 11/16/18 08:00 Room Air 11/16/18 07:29 78 11/16/18 04:00 84 11/16/18 04:00 97.8 76 20 96/49 (65) 97 11/16/18 04:00 Room Air 11/16/18 00:30 90 16 91/57 (68) 99 11/16/18 00:00 98.1 84 20 89/56 (67) 97 11/16/18 00:00 Room Air 11/16/18 00:00 Room Air 11/16/18 00:00 86 11/15/18 23:38 98.2 98 15 109/74 100 Room Air 11/15/18 23:01 98.2 98 15 109/74 100 Room Air 11/15/18 22:13 91 18 105/60 100 Room Air 11/15/18 21:53 90 21 96/56 100 Room Air 11/15/18 21:36 98.5 89 18 101/74 100 Room Air Intake and Output 11/15/18 11/16/18 19:00 07:00 Intake Total 0 ml 1925 ml Output Total 300 ml Balance 0 ml 1625 ml Intake Oral 0 ml IV Total 1925 ml Output Urine Total 300 ml # Voids 1 Laboratory Tests Test 11/16/18 04:00 White Blood Count 6.0 K/UL (4.8-10.8) Red Blood Count 3.32 M/UL (4.70-6.10) L Hemoglobin 11.3 G/DL (14.2-18.0) L Hematocrit 33.1 % (42.0-52.0) L Mean Corpuscular Volume 100 FL (80-99) H Mean Corpuscular Hemoglobin 34.1 PG (27.0-31.0) H Mean Corpuscular Hemoglobin Concent 34.2 G/DL (32.0-36.0) Red Cell Distribution Width 11.9 % (11.6-14.8) Platelet Count 383 K/UL (150-450) Mean Platelet Volume 4.7 FL (6.5-10.1) L Neutrophils (%) (Auto) 54.6 % (45.0-75.0) Lymphocytes (%) (Auto) 30.7 % (20.0-45.0) Monocytes (%) (Auto) 9.9 % (1.0-10.0) Eosinophils (%) (Auto) 3.1 % (0.0-3.0) H Basophils (%) (Auto) 1.6 % (0.0-2.0) Sodium Level 142 MMOL/L (136-145) # Potassium Level 3.1 MMOL/L (3.5-5.1) L Chloride Level 110 MMOL/L (98-107) H Carbon Dioxide Level 24 MMOL/L (21-32) Anion Gap 8 mmol/L (5-15) Blood Urea Nitrogen 5 mg/dL (7-18) L Creatinine 0.3 MG/DL (0.55-1.30) #L Estimat Glomerular Filtration Rate > 60 mL/min (>60) Glucose Level 198 MG/DL (74-106) #H Hemoglobin A1c 13.1 % (4.3-6.0) H Uric Acid 1.9 MG/DL (2.6-7.2) L Calcium Level 7.4 MG/DL (8.5-10.1) L Phosphorus Level 2.8 MG/DL (2.5-4.9) Magnesium Level 1.7 MG/DL (1.8-2.4) L Iron Level 30 ug/dL (50-175) L Total Iron Binding Capacity 116 ug/dL (250-450) L Percent Iron Saturation 26 % (15-50) Unsaturated Iron Binding 86 ug/dL (112-346) L Ferritin 310 NG/ML (8-388) Total Bilirubin 0.2 MG/DL (0.2-1.0) Direct Bilirubin < 0.1 MG/DL (0.0-0.3) Aspartate Amino Transf (AST/SGOT) 17 U/L (15-37) Alanine Aminotransferase (ALT/SGPT) 12 U/L (12-78) Alkaline Phosphatase 315 U/L (46-116) H Total Protein 5.2 G/DL (6.4-8.2) L Albumin 2.0 G/DL (3.4-5.0) L Triglycerides Level 68 MG/DL (30-150) Cholesterol Level 150 MG/DL (< 200) LDL Cholesterol 89 mg/dL (<100) HDL Cholesterol 42 MG/DL (40-60) Cholesterol/HDL Ratio 3.6 (3.3-4.4) Vitamin B12 Level 614 PG/ML (193-986) Folate 15.2 NG/ML (8.6-58.9) Microbiology Date/Time Source Procedure Growth Status 11/15/18 20:17 Rectum Received Kaz Manuel MD Nov 16, 2018 19:23
--- NOTE | 2018-11-16 19:30 | Consultation ---
Consult Note Consult Note seen in room 234 this am- requested by Dr Franz late data entery interviewed examined data reviewed KCl and MagSo4 IV ordered ER: HPI: 43-year-old male with history of insulin-dependent diabetes presents for evaluation of abdominal pain, nausea fatigue and elevated glucose readings. Patient states he has not had anything to eat and is felt nauseous for 2 days. He has not had insulin in 2 months. He is a poor historian and provides little history. He is also complaining of left ankle pain. He denies recent illness such as fever, chills, nasal congestion, sore throat. He does note a nonproductive cough. Denies any diarrhea, dysuria. Cannot remember a specific injury to his left ankle. PMH: Insulin-dependent diabetes PSH: Nonspecific knee surgery Allergies: None listed Social Hx: Uses alcohol, smoke cigarettes No Known Allergies (Unverified , 11/15/18) Past Medical History: No History, Except For Hx Diabetes: Yes . Assessment/Plan Hyperglycemia - admitted with BS over 900 Electrolyte abnormality IDDM Per Endo ELectrolyte supplement as needed per orders Kj Pimentel MD Nov 16, 2018 19:30
--- NOTE | 2018-11-16 20:00 | NUR ---
NURSE NOTES: Received patient awake in bed, calm demeanor, able to verbalize needs, no c/o pain at this time. 2 IV access asymptomatic, no IVF maintenance ordered. Will monitor blood glucose closely. Urinal at the bedside. Bed low and locked.
[2018-11-16] MEDS: Heparin 5000 units/ml inj SUBQ SCH (20:50)
--- NOTE | 2018-11-16 21:45 | Consultation ---
DATE OF CONSULTATION: 11/16/2018 CARDIOLOGY CONSULTATION CONSULTING PHYSICIAN: Kaz Manuel M.D. REFERRING PHYSICIAN: Klever Vee M.D. REASON FOR CONSULTATION: Management of tachycardia. HISTORY OF PRESENT ILLNESS: The patient is a very unfortunate 43-year-old gentleman with history of type 1 diabetes mellitus who presents to the hospital with complaints of abdominal pain, nausea, vomiting, fatigue, and elevated blood sugar readings. The patient states that he has not had any insulin for about two months and had been not tolerating foods in the past two days. At the time of arrival to the hospital, blood pressure was 134/84 mmHg, heart rate was 100. He was afebrile. Initial laboratory finding in the emergency department revealed severe hyperglycemia with glucose level of 903, metabolic acidosis with carbon dioxide of 18, hyponatremia, and presence of acetone in the blood. He was diagnosed with diabetic ketoacidosis and was admitted to intensive care unit. He was then transferred out to the nonmedical/surgical unit for further evaluation and management of his condition. Cardiology consultation was made, as he was tachycardic in the emergency department. A 12-lead electrocardiogram was significant for sinus rhythm, heart rate of 98 with no acute ischemic features. PAST MEDICAL HISTORY: Insulin-dependent diabetes mellitus or type 1. PAST SURGICAL HISTORY: Knee surgery. ALLERGIES: No known drug allergies. SOCIAL HISTORY: Smokes tobacco and uses alcohol. Denies any illicit drug use. MEDICATIONS: None. REVIEW OF SYSTEMS: A 12-system review done, essentially negative except what was mentioned in history of present illness. PHYSICAL EXAMINATION: VITAL SIGNS: Blood pressure was 134/84, respirations 16, pulse oximetry 100%, temperature 98.4 degrees Fahrenheit, O2 saturation 96%. GENERAL: The patient is a very unfortunate 43-year-old gentleman, in no apparent respiratory distress. Alert and oriented x4. -speaking. HEENT: Atraumatic, normocephalic. Anicteric. Pupils are equal, round, and reactive to light and accommodation. Extraocular muscles intact. Dry mucosal membranes. NECK: JVP less than 5 cm. No carotid bruit. Carotid upstrokes 2+ bilaterally. CARDIOVASCULAR: Normal S1 and S2. Regular rate and rhythm. Tachycardic. No murmurs, gallops, or rubs. LUNGS: Clear to auscultation bilaterally. ABDOMEN: Soft, nontender, and nondistended. No hepatosplenomegaly. Positive bowel sounds. EXTREMITIES: No evidence of edema, clubbing, or cyanosis. LABORATORY FINDINGS: WBC was 525, hemoglobin was 11.8, hematocrit was 33.9%, and platelet count of 390,000. Chemistry showed sodium 129, potassium 3.7, chloride 92, bicarbonate 18, anion gap 19. BUN 10, creatinine 0.8. Glucose is 903. Calcium is 8.5. Magnesium 2.0. Albumin 2.7. Chest x-ray showed no acute cardiopulmonary disease. ASSESSMENT AND PLAN: The patient is a very unfortunate 43-year-old gentleman, who is seen in Cardiology consultation. 1. Sinus tachycardia due to severe volume depletion associated with DKA. The treatment of this condition is aggressive hydration with normal saline, electrolyte replacement, and initiation of insulin drip. No further cardiac intervention or test is required. 2. Diabetic ketoacidosis with anion gap of 19. 3. Endocrine follow up. 4. Hyponatremia. I would like to thank, Dr. Vee, for the courtesy of this consultation. Kaz Manuel M.D. DR: JOYCE JOB#: [id number] CC:
[2018-11-17] VITALS: BP 87/49
--- NOTE | 2018-11-17 03:15 | History and Physical Report ---
DATE OF ADMISSION: 11/15/2018 HISTORY OF PRESENT ILLNESS: The patient came in, in diabetic ketoacidosis initially. However, the patient's sugars improved dramatically, hypertension improved, so the patient was put to step-down initially. The patient is not taking any insulin at home. The patient is complaining of abdominal pain and vomiting for one day and feeling weak. Denies chills. Denies shortness of breath. Denies cough. Denies diarrhea. PAST MEDICAL HISTORY: NIDDM, does not take any insulin. PAST SURGICAL HISTORY: None. FAMILY HISTORY: He does have history of diabetes in the family. SOCIAL HISTORY: Denies drugs or alcohol abuse. Does have history of smoking. REVIEW OF SYSTEMS: HEENT: Denies headaches. RESPIRATORY: Denies shortness of breath. Denies cough. CARDIOVASCULAR: Denies chest pain or orthopnea. GASTROINTESTINAL: Reports abdominal pain for 1 day. Denies diarrhea. EXTREMITY: Denies pain in the lower extremities. CENTRAL NERVOUS SYSTEM: Denies change in vision or speech pattern. Feels weak. PHYSICAL EXAMINATION: VITAL SIGNS: Temperature is 98.2, pulse is 98, and blood pressure is 109/74. HEENT: PERRLA. NECK: Supple. No lymphadenopathy. CHEST: Clear to auscultation. CARDIOVASCULAR: Regular rate and rhythm. No murmurs or extra sounds. GASTROINTESTINAL: Soft and nontender. No organomegaly. Positive bowel sounds. EXTREMITIES: No pedal edema. Moves all extremities. Reflexes are equal on both sides. LABORATORY DATA: WBC of 5.5, hemoglobin 11.8, and platelets of 390,000. Sodium 139, potassium 3.7, BUN of 10, creatinine 0.8, and glucose of 93. ASSESSMENT: Initially, the patient was in DKA, however, got better and was transferred to [facility] off insulin drip. The patient has been noncompliant with the medication for the diabetes. I have consulted Dr. Rivera, Dr. Pimentel, Dr. Car, and for the above-mentioned diagnoses as well as for the treatment. We will monitor the patient very closely. Klever Vee M.D. DR: GIA JOB#: [id number] CC:
[2018-11-17 04:05] VITALS: BP 95/62
[2018-11-17 06:17] LABS: BASOPHILS % (AUTO) 0.8 % (0.0-2.0); EOSINOPHILS % (AUTO) 1.6 % (0.0-3.0); HEMATOCRIT 34.8 % (42.0-52.0); HEMOGLOBIN 11.6 G/DL (14.2-18.0); LYMPHOCYTES % (AUTO) 34.2 % (20.0-45.0); MEAN CORPUSCULAR VOLUME 102 FL (80-99); MONOCYTES % (AUTO) 7.3 % (1.0-10.0); NEUTROPHILS % (AUTO) 56.1 % (45.0-75.0); PLATELET COUNT 360 K/UL (150-450); RED BLOOD COUNT 3.42 M/UL (4.70-6.10); RED CELL DISTRIBUTION WIDTH 12.5 % (11.6-14.8); WHITE BLOOD COUNT 5.2 K/UL (4.8-10.8)
[2018-11-17] MEDS: NovoLOG Insulin Flexpen SUBQ SCH ×7 (06:22→20:58)
--- NOTE | 2018-11-17 06:29 | General Progress Note ---
Assessment/Plan Problem List: (1) Diabetes mellitus with ketoacidosis ICD Codes: E11.10 - Type 2 diabetes mellitus with ketoacidosis without coma SNOMED: 16245127, 395612034 (2) Hyperglycemia ICD Codes: R73.9 - Hyperglycemia, unspecified SNOMED: 58626708 (3) Abdominal pain ICD Codes: R10.9 - Unspecified abdominal pain SNOMED: 28602343 (4) Nausea & vomiting ICD Codes: R11.2 - Nausea with vomiting, unspecified SNOMED: 66464309 Assessment/Plan: add Levemir 12 units bid continue Novolog 8 units ac tid continue NISS ac / hs Subjective Allergies: Coded Allergies: No Known Allergies (Unverified , 11/15/18) All Systems: reviewed and negative except above Subjective events noted hypoglycemia yesterday followed by hyperglycemia this morning Item Value Date Time Bedside Blood Glucose 319 mg/dl H 11/17/18 0623 Bedside Blood Glucose 228 mg/dl H 11/16/18 2051 Bedside Blood Glucose 289 mg/dl H 11/16/18 1644 Bedside Blood Glucose 247 mg/dl H 11/16/18 1131 Bedside Blood Glucose 43 mg/dl L 11/16/18 0908 Bedside Blood Glucose 169 mg/dl H 11/16/18 0638 Objective Last 24 Hour Vital Signs Date Time Temp Pulse Resp B/P (MAP) Pulse Ox O2 Delivery O2 Flow Rate FiO2 11/17/18 04:05 98.5 87 20 95/62 (73) 98 11/17/18 00:00 98.2 81 20 87/49 (62) 100 11/16/18 21:00 Room Air 11/16/18 20:00 98.7 86 19 94/52 (66) 100 11/16/18 16:00 88 11/16/18 16:00 98.6 81 18 106/52 (70) 100 11/16/18 16:00 Room Air 11/16/18 12:00 Room Air 11/16/18 12:00 97.9 73 18 92/60 (71) 99 11/16/18 12:00 74 11/16/18 08:00 97.6 86 18 102/57 (72) 98 11/16/18 08:00 Room Air 11/16/18 07:29 78 Intake and Output 11/16/18 11/17/18 19:00 07:00 Intake Total 500 ml 300 ml Output Total 2101 ml Balance -1601 ml 300 ml Intake Oral 300 ml IV Total 500 ml Output Urine Total 2100 ml Stool Total 1 ml # Bowel Movements 1 1 Laboratory Tests 11/17/18 04:46: White Blood Count 5.2, Red Blood Count 3.42L, Hemoglobin 11.6L, Hematocrit 34.8L , Mean Corpuscular Volume 102H, Mean Corpuscular Hemoglobin 33.8H, Mean Corpuscular Hemoglobin Concent 33.2, Red Cell Distribution Width 12.5, Platelet Count 360, Mean Platelet Volume 4.6L, Neutrophils (%) (Auto) 56.1, Lymphocytes ( %) (Auto) 34.2, Monocytes (%) (Auto) 7.3, Eosinophils (%) (Auto) 1.6, Basophils (%) (Auto) 0.8, Sodium Level [Pending], Potassium Level [Pending], Chloride Level [Pending], Carbon Dioxide Level [Pending], Blood Urea Nitrogen [Pending], Creatinine [Pending], Estimat Glomerular Filtration Rate [Pending], Glucose Level [Pending], Calcium Level [Pending], Phosphorus Level [Pending], Magnesium Level [Pending], Total Bilirubin [Pending], Gamma Glutamyl Transpeptidase [ Pending], Aspartate Amino Transf (AST/SGOT) [Pending], Alanine Aminotransferase (ALT/SGPT) [Pending], Alkaline Phosphatase [Pending], C-Reactive Protein, Quantitative [Pending], Total Protein [Pending], Albumin [Pending], Globulin [ Pending], Triglycerides Level [Pending], Cholesterol Level [Pending], LDL Cholesterol [Pending], HDL Cholesterol [Pending], Cholesterol/HDL Ratio [Pending ] Height (Feet): 5 Height (Inches): 5.00 Weight (Pounds): 97 General Appearance: no apparent distress Neck: normal alignment Cardiovascular: normal rate Respiratory/Chest: lungs clear Abdomen: normal bowel sounds Objective Current Medications Medications (Trade) Dose Ordered Sig/Yasemin Route PRN Reason Start Time Stop Time Status Last Admin Dose Admin Acetaminophen (Tylenol) 650 mg Q6H PRN ORAL Mild Pain/Temp > 100.5 11/16/18 17:30 12/15/18 17:29 Dextrose (Dextrose 50%) 25 ml Q30M PRN IV Hypoglycemia 11/16/18 17:45 12/15/18 23:14 Dextrose (Dextrose 50%) 50 ml Q30M PRN IV Hypoglycemia 11/16/18 17:45 12/15/18 23:14 Docusate Sodium (Colace) 100 mg TWICE A DAY ORAL 11/17/18 09:00 12/17/18 08:59 Heparin Sodium (Porcine) (Heparin 5000 units/ml) 5,000 units EVERY 12 HOURS SUBQ 11/16/18 21:00 12/16/18 08:59 11/16/18 20:50 Insulin Aspart (NovoLOG) BEFORE MEALS AND HS SUBQ 11/16/18 21:00 12/16/18 06:29 11/17/18 06:23 Insulin Aspart (NovoLOG) 8 units NOVOTIAC SUBQ 11/17/18 06:30 12/16/18 06:29 11/17/18 06:22 Ondansetron HCl (Zofran) 4 mg Q6H PRN IVP Nausea & Vomiting 11/16/18 17:30 12/15/18 17:29 Pantoprazole (Protonix) 40 mg DAILY ORAL 11/16/18 19:45 12/16/18 19:44 11/16/18 20:12 Merrick Rivera MD Nov 17, 2018 06:29
[2018-11-17 06:48] LABS: ALANINE AMINOTRANSFERASE 13 U/L (12-78); ALBUMIN/GLOBULIN RATIO 0.6 (1.0-2.7); ALKALINE PHOSPHATASE 282 U/L (46-116); ANION GAP 9 mmol/L (5-15); ASPARTATE AMINO TRANSFERASE 21 U/L (15-37); BILIRUBIN,TOTAL 0.2 MG/DL (0.2-1.0); BLOOD UREA NITROGEN 9 mg/dL (7-18); CALCIUM 8.1 MG/DL (8.5-10.1); CARBON DIOXIDE 25 MMOL/L (21-32); CHLORIDE 106 MMOL/L (98-107); CHOLESTEROL 151 MG/DL (< 200); CREATININE 0.4 MG/DL (0.55-1.30); GAMMA GLUTAMYL TRANSPEPTIDASE 27 U/L (5-85); HDL CHOLESTEROL 46 MG/DL (40-60); PHOSPHORUS 3.7 MG/DL (2.5-4.9); POTASSIUM 3.9 MMOL/L (3.5-5.1); SODIUM 140 MMOL/L (136-145); TRIGLYCERIDES 80 MG/DL (30-150)
--- NOTE | 2018-11-17 07:18 | NUR ---
HAND-OFF: Report given to JUSTIN Gleason.
[2018-11-17 08:00] VITALS: BP 99/61
--- NOTE | 2018-11-17 08:00 | NUR ---
NURSE NOTES: Received report from Nayeli/RN, Patient is asleep, Lying semi-forrest's, resting comfortably. On room air, No acute distress/SOB noted. IV on right right upper arm 20G and Left FA 20G, TKO patent, no bleeding or infiltration noted. Bed in low position and locked, Bed alarm and break on. Call light within reach. Will continue plan of care.
[2018-11-17] MEDS: Docusate 100mg cap ORAL SCH ×2 (09:30→17:29)
[2018-11-17] MEDS: Heparin 5000 units/ml inj SUBQ SCH ×2 (09:35→20:50)
[2018-11-17] MEDS: Levemir Flexpen SUBQ SCH ×2 (09:36→18:00)
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
--- NOTE | 2018-11-17 10:07 | NUR ---
CASE MANAGEMENT: INITIAL REVIEW 43 YO M [address] CC: HYPERGLYCEMIA AND DIZZINESS PMHx: DM. SI:HYPERGLYCEMIA. T 98.4 HR 100 RR 16 B/P 134/84 SATS 96% ON RA NA 129 CL 92 CO2 18 GLU 903 ALP 416 ACETONE (+SMALL) ABGs PH 7.317 PCO2 30 PO2 100.4 HCO3 15 BE -10 IS: NS BOLUS X1 NS W/ KCL IV X1 INSULIN HUMAN REGULAR IV X1 PATIENT ADMITTED TO MED/SURG 11/15/2018 @ 2019 DCP: PATIENT TO BE DISCHARGED TO APPROPRIATE LOCATION ONCE MEDICALLY CLEARED. PLAN OF CARE: ENDO CONSULT Addendum: 11/17/18 at 1133 by Margie Chirinos CM INTERQUAL MET
--- NOTE | 2018-11-17 11:27 | Nephrology Progress Note ---
Assessment/Plan Problem List: (1) Hyperglycemia (2) Electrolyte abnormality Assessment Hyperglycemia - admitted with BS over 900 Electrolyte abnormality IDDM Plan Per Endo ELectrolyte supplement as needed per orders Subjective ROS Limited/Unobtainable: No Objective Objective Last 24 Hour Vital Signs Date Time Temp Pulse Resp B/P (MAP) Pulse Ox O2 Delivery O2 Flow Rate FiO2 11/17/18 04:05 98.5 87 20 95/62 (73) 98 11/17/18 00:00 98.2 81 20 87/49 (62) 100 11/16/18 21:00 Room Air 11/16/18 20:00 98.7 86 19 94/52 (66) 100 11/16/18 16:00 88 11/16/18 16:00 98.6 81 18 106/52 (70) 100 11/16/18 16:00 Room Air 11/16/18 12:00 Room Air 11/16/18 12:00 97.9 73 18 92/60 (71) 99 11/16/18 12:00 74 Intake and Output 11/16/18 11/17/18 18:59 06:59 Intake Total 600 ml 300 ml Output Total 2101 ml Balance -1501 ml 300 ml Intake Oral 300 ml IV Total 600 ml Output Urine Total 2100 ml Stool Total 1 ml # Voids 3 # Bowel Movements 1 2 Laboratory Tests 11/17/18 04:46: White Blood Count 5.2, Red Blood Count 3.42L, Hemoglobin 11.6L, Hematocrit 34.8L , Mean Corpuscular Volume 102H, Mean Corpuscular Hemoglobin 33.8H, Mean Corpuscular Hemoglobin Concent 33.2, Red Cell Distribution Width 12.5, Platelet Count 360, Mean Platelet Volume 4.6L, Neutrophils (%) (Auto) 56.1, Lymphocytes ( %) (Auto) 34.2, Monocytes (%) (Auto) 7.3, Eosinophils (%) (Auto) 1.6, Basophils (%) (Auto) 0.8, Sodium Level 140, Potassium Level 3.9, Chloride Level 106, Carbon Dioxide Level 25, Anion Gap 9, Blood Urea Nitrogen 9, Creatinine 0.4L, Estimat Glomerular Filtration Rate > 60, Glucose Level 347#H, Calcium Level 8.1L , Phosphorus Level 3.7, Magnesium Level 2.1, Total Bilirubin 0.2, Gamma Glutamyl Transpeptidase 27, Aspartate Amino Transf (AST/SGOT) 21, Alanine Aminotransferase (ALT/SGPT) 13, Alkaline Phosphatase 282H, C-Reactive Protein, Quantitative 1.4H, Total Protein 5.3L, Albumin 2.0L, Globulin 3.3, Albumin/ Globulin Ratio 0.6L, Triglycerides Level 80, Cholesterol Level 151, LDL Cholesterol 91, HDL Cholesterol 46, Cholesterol/HDL Ratio 3.3 Height (Feet): 5 Height (Inches): 5.00 Weight (Pounds): 97 General Appearance: no apparent distress Objective no change Kj Pimentel MD Nov 17, 2018 11:27
[2018-11-17 12:00] VITALS: BP 94/60
--- NOTE | 2018-11-17 12:45 | Diagnostic Imaging Report ---
APPROVED REPORT CPT Code: 14905 Present Symptoms Comments: Screening BILATERAL: Imaging reveals a patent deep venous system bilaterally. There is no evidence of thrombus within the common femoral, superficial femoral, popliteal or tibial segments. The greater saphenous veins are within normal limits. Doppler indicates normal spontaneous flow within these segments.
--- NOTE | 2018-11-17 12:49 | GI Progress Note ---
Assessment/Plan Problems: (1) Electrolyte abnormality ICD Codes: E87.8 - Other disorders of electrolyte and fluid balance, not elsewhere classified SNOMED: 796652220 (2) Nausea & vomiting ICD Codes: R11.2 - Nausea with vomiting, unspecified SNOMED: 03278974 (3) Abdominal pain ICD Codes: R10.9 - Unspecified abdominal pain SNOMED: 78484746 (4) Diabetes mellitus with ketoacidosis ICD Codes: E11.10 - Type 2 diabetes mellitus with ketoacidosis without coma SNOMED: 72706390, 472072469 (5) Hyperglycemia ICD Codes: R73.9 - Hyperglycemia, unspecified SNOMED: 69714178 Status: doing well, stable Status Narrative Discussed with Dr. Car. Assessment/Plan nausea 2/2 to DKA zofran prn advance diet DM management prn transfusions ppi electrolyte correction The patient was seen and examined at bedside and all new and available data was reviewed in the patients chart. I agree with the above findings, impression and plan. (Patient seen earlier today. Signature stamp does not reflect patient encounter time.). - Surjit Car MD Subjective Gastrointestinal/Abdominal: Reports: abdominal pain Objective Last 24 Hour Vital Signs Date Time Temp Pulse Resp B/P (MAP) Pulse Ox O2 Delivery O2 Flow Rate FiO2 11/17/18 09:00 Room Air 11/17/18 08:00 98.5 85 17 99/61 (74) 98 11/17/18 04:05 98.5 87 20 95/62 (73) 98 11/17/18 00:00 98.2 81 20 87/49 (62) 100 11/16/18 21:00 Room Air 11/16/18 20:00 98.7 86 19 94/52 (66) 100 11/16/18 16:00 88 11/16/18 16:00 98.6 81 18 106/52 (70) 100 11/16/18 16:00 Room Air Intake and Output 11/16/18 11/17/18 18:59 06:59 Intake Total 600 ml 300 ml Output Total 2101 ml Balance -1501 ml 300 ml Intake Oral 300 ml IV Total 600 ml Output Urine Total 2100 ml Stool Total 1 ml # Voids 3 # Bowel Movements 1 2 Laboratory Tests Test 11/17/18 04:46 White Blood Count 5.2 K/UL (4.8-10.8) Red Blood Count 3.42 M/UL (4.70-6.10) L Hemoglobin 11.6 G/DL (14.2-18.0) L Hematocrit 34.8 % (42.0-52.0) L Mean Corpuscular Volume 102 FL (80-99) H Mean Corpuscular Hemoglobin 33.8 PG (27.0-31.0) H Mean Corpuscular Hemoglobin Concent 33.2 G/DL (32.0-36.0) Red Cell Distribution Width 12.5 % (11.6-14.8) Platelet Count 360 K/UL (150-450) Mean Platelet Volume 4.6 FL (6.5-10.1) L Neutrophils (%) (Auto) 56.1 % (45.0-75.0) Lymphocytes (%) (Auto) 34.2 % (20.0-45.0) Monocytes (%) (Auto) 7.3 % (1.0-10.0) Eosinophils (%) (Auto) 1.6 % (0.0-3.0) Basophils (%) (Auto) 0.8 % (0.0-2.0) Sodium Level 140 MMOL/L (136-145) Potassium Level 3.9 MMOL/L (3.5-5.1) Chloride Level 106 MMOL/L (98-107) Carbon Dioxide Level 25 MMOL/L (21-32) Anion Gap 9 mmol/L (5-15) Blood Urea Nitrogen 9 mg/dL (7-18) Creatinine 0.4 MG/DL (0.55-1.30) L Estimat Glomerular Filtration Rate > 60 mL/min (>60) Glucose Level 347 MG/DL (74-106) #H Calcium Level 8.1 MG/DL (8.5-10.1) L Phosphorus Level 3.7 MG/DL (2.5-4.9) Magnesium Level 2.1 MG/DL (1.8-2.4) Total Bilirubin 0.2 MG/DL (0.2-1.0) Gamma Glutamyl Transpeptidase 27 U/L (5-85) Aspartate Amino Transf (AST/SGOT) 21 U/L (15-37) Alanine Aminotransferase (ALT/SGPT) 13 U/L (12-78) Alkaline Phosphatase 282 U/L (46-116) H C-Reactive Protein, Quantitative 1.4 mg/dL (0.00-0.90) H Total Protein 5.3 G/DL (6.4-8.2) L Albumin 2.0 G/DL (3.4-5.0) L Globulin 3.3 g/dL Albumin/Globulin Ratio 0.6 (1.0-2.7) L Triglycerides Level 80 MG/DL (30-150) Cholesterol Level 151 MG/DL (< 200) LDL Cholesterol 91 mg/dL (<100) HDL Cholesterol 46 MG/DL (40-60) Cholesterol/HDL Ratio 3.3 (3.3-4.4) Height (Feet): 5 Height (Inches): 5.00 Weight (Pounds): 97 General Appearance: WD/WN, no apparent distress, alert Cardiovascular: normal rate Respiratory/Chest: normal breath sounds, no respiratory distress Abdominal Exam: normal bowel sounds, non tender, soft Extremities: normal range of motion, non-tender Moriah Dang NP Nov 17, 2018 12:49
--- NOTE | 2018-11-17 15:13 | Cardiology Report ---
APPROVED REPORT EKG Measurement Heart [id number] Normal sinus rhythm Rightward axis Borderline ECG
[2018-11-17 16:00] VITALS: BP 99/63
--- NOTE | 2018-11-17 17:59 | Pulmonology Progress Note ---
Assessment/Plan Assessment/Plan Pulmonary Consultation HPI Patient is a 43-year old man with history of Insulin Dependent Diabetes Mellitus who presents with DKA, c/o abdominal pain, nausea fatigue and elevated glucose readings. He has not had insulin in 2 months. He is also complaining of left ankle pain. He denies recent illness such as fever, chills, nasal congestion, sore throat. He does note a nonproductive cough. Denies any diarrhea, dysuria. Denies injury. No new complaints PMH: Insulin Dependent Diabetes Mellitus Physical Exam Vital Signs Noted General: Awake and alert, comfortable HEENT: NC/AT. EOMI. dry mucous membranes Cardiovascular: Tachycardic. S1 and S2 normal. No murmur appreciated Resp: Normal work of breathing. No cough, wheezing or crackles appreciated Abdomen: Abdomen is soft, nondistended. Somel tenderness palpation in the epigastrium. No masses. No guarding Skin: Intact. No abrasions, laceration or rash over the exposed skin MSK: Palpation of the anterior and posterior element of the medial malleolus of the left ankle. Some edema. Neuro: Awake and alert. Mentating appropriately. Impression: Insulin Dependent Diabetes Mellitus DKA, Hyperglycemia Ankle pain Plan: IVF Insulin gtt in ED - subsequently SQ Insulin - Lantus and ISS CXR negative for infiltrate Monitor labs PPX Test 11/15/18 18:12 11/15/18 18:20 11/15/18 19:06 White Blood Count 5.5 K/UL (4.8-10.8) Red Blood Count 3.48 M/UL (4.70-6.10) L Hemoglobin 11.8 G/DL (14.2-18.0) L Hematocrit 33.9 % (42.0-52.0) L Mean Corpuscular Volume 97 FL (80-99) Mean Corpuscular Hemoglobin 34.0 PG (27.0-31.0) H Mean Corpuscular Hemoglobin Concent 34.9 G/DL (32.0-36.0) Red Cell Distribution Width 11.8 % (11.6-14.8) Platelet Count 390 K/UL (150-450) Mean Platelet Volume 4.4 FL (6.5-10.1) L Neutrophils (%) (Auto) 71.1 % (45.0-75.0) Lymphocytes (%) (Auto) 16.8 % (20.0-45.0) L Monocytes (%) (Auto) 10.3 % (1.0-10.0) H Eosinophils (%) (Auto) 0.8 % (0.0-3.0) Basophils (%) (Auto) 1.0 % (0.0-2.0) Sodium Level 129 MMOL/L (136-145) L Potassium Level 3.7 MMOL/L (3.5-5.1) Chloride Level 92 MMOL/L (98-107) L Carbon Dioxide Level 18 MMOL/L (21-32) L Anion Gap 19 mmol/L (5-15) H Blood Urea Nitrogen 10 mg/dL (7-18) Creatinine 0.8 MG/DL (0.55-1.30) Estimate Glomerular Filtration Rate > 60 mL/min (>60) Glucose Level 903 MG/DL (74-106) *H Calcium Level 8.5 MG/DL (8.5-10.1) Magnesium Level 2.0 MG/DL (1.8-2.4) Total Bilirubin 0.4 MG/DL (0.2-1.0) Aspartate Amino Transferase (AST) 16 U/L (15-37) Alanine Aminotransferase (ALT) 15 U/L (12-78) Alkaline Phosphatase 416 U/L (46-116) H Total Protein 6.9 G/DL (6.4-8.2) Albumin 2.7 G/DL (3.4-5.0) L Globulin 4.2 g/dL Albumin/Globulin Ratio 0.6 (1.0-2.7) L Acetone Level Positive-small (NEGATIVE) Arterial Blood pH 7.317 (7.350-7.450) Arterial Blood Partial Pressure CO2 30.0 mmHg (35.0-45.0) L Arterial Blood Partial Pressure O2 100.4 mmHg (75.0-100.0) H Arterial Blood HCO3 15.0 mmol/L (22.0-26.0) *L Arterial Blood Oxygen Saturation 96.5 % (95-100) Arterial Blood Base Excess -10.0 (-2-2) *L Haris Test Positive Urine Color Pale yellow Urine Appearance Clear Urine pH 6 (4.5-8.0) Urine Specific [place] 1.005 (1.005-1.035) Urine Protein Negative (NEGATIVE) Urine Glucose (UA) 4+ (NEGATIVE) H Urine Ketones 3+ (NEGATIVE) H Urine Blood Negative (NEGATIVE) Urine Nitrite Negative (NEGATIVE) Urine Bilirubin Negative (NEGATIVE) Urine Urobilinogen Normal MG/DL (0.0-1.0) Urine Leukocyte Esterase Negative (NEGATIVE) EKG: Rate: normal Rhythm: NSR, no acute changes. Normal intervals. No ischemic changes. Chest X-Ray no consolidation, no effusion, no pneumothorax X-rays of the foot: previous hardware but does not obviously show periprosthetic fracture. He will be admitted for further monitoring. Subjective ROS Limited/Unobtainable: No Allergies: Coded Allergies: No Known Allergies (Unverified , 11/15/18) Objective Last 24 Hour Vital Signs Date Time Temp Pulse Resp B/P (MAP) Pulse Ox O2 Delivery O2 Flow Rate FiO2 11/17/18 12:00 98.2 81 18 94/60 (71) 98 11/17/18 09:00 Room Air 11/17/18 08:00 98.5 85 17 99/61 (74) 98 11/17/18 04:05 98.5 87 20 95/62 (73) 98 11/17/18 00:00 98.2 81 20 87/49 (62) 100 11/16/18 21:00 Room Air 11/16/18 20:00 98.7 86 19 94/52 (66) 100 Intake and Output 11/16/18 11/17/18 19:00 07:00 Intake Total 500 ml 300 ml Output Total 2101 ml Balance -1601 ml 300 ml Intake Oral 300 ml IV Total 500 ml Output Urine Total 2100 ml Stool Total 1 ml # Voids 3 # Bowel Movements 1 2 Microbiology Date/Time Source Procedure Growth Status 11/15/18 20:17 Rectum Received Laboratory Tests 11/17/18 04:46: White Blood Count 5.2, Red Blood Count 3.42L, Hemoglobin 11.6L, Hematocrit 34.8L , Mean Corpuscular Volume 102H, Mean Corpuscular Hemoglobin 33.8H, Mean Corpuscular Hemoglobin Concent 33.2, Red Cell Distribution Width 12.5, Platelet Count 360, Mean Platelet Volume 4.6L, Neutrophils (%) (Auto) 56.1, Lymphocytes ( %) (Auto) 34.2, Monocytes (%) (Auto) 7.3, Eosinophils (%) (Auto) 1.6, Basophils (%) (Auto) 0.8, Sodium Level 140, Potassium Level 3.9, Chloride Level 106, Carbon Dioxide Level 25, Anion Gap 9, Blood Urea Nitrogen 9, Creatinine 0.4L, Estimat Glomerular Filtration Rate > 60, Glucose Level 347#H, Calcium Level 8.1L , Phosphorus Level 3.7, Magnesium Level 2.1, Total Bilirubin 0.2, Gamma Glutamyl Transpeptidase 27, Aspartate Amino Transf (AST/SGOT) 21, Alanine Aminotransferase (ALT/SGPT) 13, Alkaline Phosphatase 282H, C-Reactive Protein, Quantitative 1.4H, Total Protein 5.3L, Albumin 2.0L, Globulin 3.3, Albumin/ Globulin Ratio 0.6L, Triglycerides Level 80, Cholesterol Level 151, LDL Cholesterol 91, HDL Cholesterol 46, Cholesterol/HDL Ratio 3.3 Current Medications Medications (Trade) Dose Ordered Sig/Yasemin Route PRN Reason Start Time Stop Time Status Last Admin Dose Admin Acetaminophen (Tylenol) 650 mg Q6H PRN ORAL Mild Pain/Temp > 100.5 11/16/18 17:30 12/15/18 17:29 Dextrose (Dextrose 50%) 25 ml Q30M PRN IV Hypoglycemia 11/17/18 06:30 12/17/18 06:29 Dextrose (Dextrose 50%) 50 ml Q30M PRN IV Hypoglycemia 11/17/18 06:30 12/17/18 06:29 Docusate Sodium (Colace) 100 mg TWICE A DAY ORAL 11/17/18 09:00 12/17/18 08:59 11/17/18 17:29 Heparin Sodium (Porcine) (Heparin 5000 units/ml) 5,000 units EVERY 12 HOURS SUBQ 11/16/18 21:00 12/16/18 08:59 11/17/18 09:35 Insulin Aspart (NovoLOG) BEFORE MEALS AND HS SUBQ 11/16/18 21:00 12/16/18 06:29 11/17/18 17:31 Insulin Aspart (NovoLOG) 8 units NOVOTIAC SUBQ 11/17/18 06:30 12/16/18 06:29 11/17/18 17:31 Insulin Detemir (Levemir) 12 units BID SUBQ 11/17/18 09:00 12/17/18 08:59 11/17/18 09:36 Ondansetron HCl (Zofran) 4 mg Q6H PRN IVP Nausea & Vomiting 11/16/18 17:30 12/15/18 17:29 Pantoprazole (Protonix) 40 mg DAILY ORAL 11/16/18 19:45 12/16/18 19:44 11/17/18 09:30 Solomon Lanier MD Nov 17, 2018 17:59
--- NOTE | 2018-11-17 19:24 | NUR ---
HAND-OFF: Report given to Carmen, Patient is awake, watching TV. Endorsed plan of care.
--- NOTE | 2018-11-17 19:38 | NUR ---
NURSE NOTES: Received patient in bed, report is given by Marcia RN, awake, alert, oriented, Bulgarian speaking mostly, no acute distress noted. IV site is clean dry and intact. Bed is in low position, locked, alarm is on, call light is within reach. Will continue to monitor for comfort and safety.
[2018-11-17 20:00] VITALS: BP 105/63
--- NOTE | 2018-11-17 21:34 | General Progress Note ---
Assessment/Plan Problem List: (1) Diabetes mellitus with ketoacidosis ICD Codes: E11.10 - Type 2 diabetes mellitus with ketoacidosis without coma SNOMED: 95731858, 534232553 (2) Hyperglycemia ICD Codes: R73.9 - Hyperglycemia, unspecified SNOMED: 13396339 (3) Abdominal pain ICD Codes: R10.9 - Unspecified abdominal pain SNOMED: 18975055 (4) Nausea & vomiting ICD Codes: R11.2 - Nausea with vomiting, unspecified SNOMED: 16056230 (5) Electrolyte abnormality ICD Codes: E87.8 - Other disorders of electrolyte and fluid balance, not elsewhere classified SNOMED: 329423287 Status: doing well, stable, progressing Assessment/Plan: elevated sugar no n/v/d reviewed chart and labs and mes clinically improving Subjective ROS Limited/Unobtainable: Yes Allergies: Coded Allergies: No Known Allergies (Unverified , 11/15/18) Objective Last 24 Hour Vital Signs Date Time Temp Pulse Resp B/P (MAP) Pulse Ox O2 Delivery O2 Flow Rate FiO2 11/17/18 16:00 98.1 80 20 99/63 (75) 97 11/17/18 12:00 98.2 81 18 94/60 (71) 98 11/17/18 09:00 Room Air 11/17/18 08:00 98.5 85 17 99/61 (74) 98 11/17/18 04:05 98.5 87 20 95/62 (73) 98 11/17/18 00:00 98.2 81 20 87/49 (62) 100 Intake and Output 11/16/18 11/17/18 19:00 07:00 Intake Total 500 ml 300 ml Output Total 2101 ml Balance -1601 ml 300 ml Intake Oral 300 ml IV Total 500 ml Output Urine Total 2100 ml Stool Total 1 ml # Voids 3 # Bowel Movements 1 2 Laboratory Tests 11/17/18 04:46: White Blood Count 5.2, Red Blood Count 3.42L, Hemoglobin 11.6L, Hematocrit 34.8L , Mean Corpuscular Volume 102H, Mean Corpuscular Hemoglobin 33.8H, Mean Corpuscular Hemoglobin Concent 33.2, Red Cell Distribution Width 12.5, Platelet Count 360, Mean Platelet Volume 4.6L, Neutrophils (%) (Auto) 56.1, Lymphocytes ( %) (Auto) 34.2, Monocytes (%) (Auto) 7.3, Eosinophils (%) (Auto) 1.6, Basophils (%) (Auto) 0.8, Sodium Level 140, Potassium Level 3.9, Chloride Level 106, Carbon Dioxide Level 25, Anion Gap 9, Blood Urea Nitrogen 9, Creatinine 0.4L, Estimat Glomerular Filtration Rate > 60, Glucose Level 347#H, Calcium Level 8.1L , Phosphorus Level 3.7, Magnesium Level 2.1, Total Bilirubin 0.2, Gamma Glutamyl Transpeptidase 27, Aspartate Amino Transf (AST/SGOT) 21, Alanine Aminotransferase (ALT/SGPT) 13, Alkaline Phosphatase 282H, C-Reactive Protein, Quantitative 1.4H, Total Protein 5.3L, Albumin 2.0L, Globulin 3.3, Albumin/ Globulin Ratio 0.6L, Triglycerides Level 80, Cholesterol Level 151, LDL Cholesterol 91, HDL Cholesterol 46, Cholesterol/HDL Ratio 3.3 Height (Feet): 5 Height (Inches): 5.00 Weight (Pounds): 97 Cardiovascular: normal rate Respiratory/Chest: lungs clear Abdomen: soft Klever Vee MD Nov 17, 2018 21:34
[2018-11-18] VITALS: BP 107/69
--- NOTE | 2018-11-18 01:08 | Cardiology Progress Note ---
Assessment/Plan Assessment/Plan 1. Sinus tachycardia due to severe volume depletion associated with DKA, resolved, continue hydration. 2. Diabetic ketoacidosis with anion gap of 19. 3. Endocrine follow up. 4. Hyponatremia. Subjective Subjective No cardiac events noted. Objective Last 24 Hour Vital Signs Date Time Temp Pulse Resp B/P (MAP) Pulse Ox O2 Delivery O2 Flow Rate FiO2 11/18/18 00:00 98.3 78 19 107/69 (82) 78 11/17/18 22:20 Room Air 11/17/18 20:00 97.7 91 20 105/63 (77) 91 11/17/18 16:00 98.1 80 20 99/63 (75) 97 11/17/18 12:00 98.2 81 18 94/60 (71) 98 11/17/18 09:00 Room Air 11/17/18 08:00 98.5 85 17 99/61 (74) 98 11/17/18 04:05 98.5 87 20 95/62 (73) 98 Intake and Output 11/17/18 11/18/18 19:00 07:00 Intake Total 500 ml Balance 500 ml Intake Oral 500 ml # Bowel Movements 1 1 Laboratory Tests Test 11/17/18 04:46 White Blood Count 5.2 K/UL (4.8-10.8) Red Blood Count 3.42 M/UL (4.70-6.10) L Hemoglobin 11.6 G/DL (14.2-18.0) L Hematocrit 34.8 % (42.0-52.0) L Mean Corpuscular Volume 102 FL (80-99) H Mean Corpuscular Hemoglobin 33.8 PG (27.0-31.0) H Mean Corpuscular Hemoglobin Concent 33.2 G/DL (32.0-36.0) Red Cell Distribution Width 12.5 % (11.6-14.8) Platelet Count 360 K/UL (150-450) Mean Platelet Volume 4.6 FL (6.5-10.1) L Neutrophils (%) (Auto) 56.1 % (45.0-75.0) Lymphocytes (%) (Auto) 34.2 % (20.0-45.0) Monocytes (%) (Auto) 7.3 % (1.0-10.0) Eosinophils (%) (Auto) 1.6 % (0.0-3.0) Basophils (%) (Auto) 0.8 % (0.0-2.0) Sodium Level 140 MMOL/L (136-145) Potassium Level 3.9 MMOL/L (3.5-5.1) Chloride Level 106 MMOL/L (98-107) Carbon Dioxide Level 25 MMOL/L (21-32) Anion Gap 9 mmol/L (5-15) Blood Urea Nitrogen 9 mg/dL (7-18) Creatinine 0.4 MG/DL (0.55-1.30) L Estimat Glomerular Filtration Rate > 60 mL/min (>60) Glucose Level 347 MG/DL (74-106) #H Calcium Level 8.1 MG/DL (8.5-10.1) L Phosphorus Level 3.7 MG/DL (2.5-4.9) Magnesium Level 2.1 MG/DL (1.8-2.4) Total Bilirubin 0.2 MG/DL (0.2-1.0) Gamma Glutamyl Transpeptidase 27 U/L (5-85) Aspartate Amino Transf (AST/SGOT) 21 U/L (15-37) Alanine Aminotransferase (ALT/SGPT) 13 U/L (12-78) Alkaline Phosphatase 282 U/L (46-116) H C-Reactive Protein, Quantitative 1.4 mg/dL (0.00-0.90) H Total Protein 5.3 G/DL (6.4-8.2) L Albumin 2.0 G/DL (3.4-5.0) L Globulin 3.3 g/dL Albumin/Globulin Ratio 0.6 (1.0-2.7) L Triglycerides Level 80 MG/DL (30-150) Cholesterol Level 151 MG/DL (< 200) LDL Cholesterol 91 mg/dL (<100) HDL Cholesterol 46 MG/DL (40-60) Cholesterol/HDL Ratio 3.3 (3.3-4.4) Microbiology Date/Time Source Procedure Growth Status 11/15/18 20:17 Rectum Received Objective HEENT: Atraumatic, normocephalic. Anicteric. Pupils are equal, round, and reactive to light and accommodation. Extraocular muscles intact. Dry mucosal membranes. NECK: JVP less than 5 cm. No carotid bruit. Carotid upstrokes 2+ bilaterally. CARDIOVASCULAR: Normal S1 and S2. Regular rate and rhythm. No murmurs, gallops , or rubs. LUNGS: Clear to auscultation bilaterally. ABDOMEN: Soft, nontender, and nondistended. No hepatosplenomegaly. Positive bowel sounds. EXTREMITIES: No evidence of edema, clubbing, or cyanosis. Kaz Manuel MD Nov 18, 2018 01:08
[2018-11-18 04:00] VITALS: BP 103/64
[2018-11-18] MEDS: NovoLOG Insulin Flexpen SUBQ SCH ×7 (05:44→20:54)
[2018-11-18 06:44] LABS: ANION GAP 5 mmol/L (5-15); BLOOD UREA NITROGEN 10 mg/dL (7-18); CALCIUM 8.4 MG/DL (8.5-10.1); CARBON DIOXIDE 30 MMOL/L (21-32); CHLORIDE 102 MMOL/L (98-107); CREATININE 0.5 MG/DL (0.55-1.30); POTASSIUM 4.1 MMOL/L (3.5-5.1); SODIUM 136 MMOL/L (136-145)
[2018-11-18 07:01] LABS: BASOPHILS % (AUTO) 1.3 % (0.0-2.0); HEMATOCRIT 34.6 % (42.0-52.0); HEMOGLOBIN 11.4 G/DL (14.2-18.0); LYMPHOCYTES % (AUTO) 46.4 % (20.0-45.0); MEAN CORPUSCULAR VOLUME 102 FL (80-99); NEUTROPHILS % (AUTO) 41.3 % (45.0-75.0); PLATELET COUNT 364 K/UL (150-450); RED CELL DISTRIBUTION WIDTH 12.3 % (11.6-14.8); WHITE BLOOD COUNT 4.3 K/UL (4.8-10.8)
--- NOTE | 2018-11-18 07:11 | General Progress Note ---
Assessment/Plan Problem List: (1) Diabetes mellitus with ketoacidosis ICD Codes: E11.10 - Type 2 diabetes mellitus with ketoacidosis without coma SNOMED: 80824386, 275871000 (2) Hyperglycemia ICD Codes: R73.9 - Hyperglycemia, unspecified SNOMED: 36542872 (3) Abdominal pain ICD Codes: R10.9 - Unspecified abdominal pain SNOMED: 69092242 (4) Nausea & vomiting ICD Codes: R11.2 - Nausea with vomiting, unspecified SNOMED: 29144040 Status: doing well, stable, progressing Assessment/Plan: continue Levemir 12 units bid continue Novolog 8 units ac tid continue NISS ac / hs Subjective Allergies: Coded Allergies: No Known Allergies (Unverified , 11/15/18) Subjective events noted fasting glucose elevated after Levemir 12 units was not given last night mealtime glucose controlled Item Value Date Time Bedside Blood Glucose 301 mg/dl H 11/18/18 0603 Bedside Blood Glucose 122 mg/dl H 11/17/18 1800 Bedside Blood Glucose 168 mg/dl H 11/17/18 1233 Bedside Blood Glucose 210 mg/dl H 11/17/18 0936 Bedside Blood Glucose 319 mg/dl H 11/17/18 0623 Objective Last 24 Hour Vital Signs Date Time Temp Pulse Resp B/P (MAP) Pulse Ox O2 Delivery O2 Flow Rate FiO2 11/18/18 04:00 97.8 74 18 103/64 (77) 74 11/18/18 00:00 98.3 78 19 107/69 (82) 78 11/17/18 22:20 Room Air 11/17/18 20:00 97.7 91 20 105/63 (77) 91 11/17/18 16:00 98.1 80 20 99/63 (75) 97 11/17/18 12:00 98.2 81 18 94/60 (71) 98 11/17/18 09:00 Room Air 11/17/18 08:00 98.5 85 17 99/61 (74) 98 Intake and Output 11/17/18 11/18/18 19:00 07:00 Intake Total 500 ml Balance 500 ml Intake Oral 500 ml # Bowel Movements 1 1 Laboratory Tests 11/18/18 05:20: White Blood Count 4.3L, Red Blood Count 3.40L, Hemoglobin 11.4L, Hematocrit 34.6L, Mean Corpuscular Volume 102H, Mean Corpuscular Hemoglobin 33.6H, Mean Corpuscular Hemoglobin Concent 32.9, Red Cell Distribution Width 12.3, Platelet Count 364, Mean Platelet Volume 4.4L, Neutrophils (%) (Auto) 41.3L, Lymphocytes (%) (Auto) 46.4H, Monocytes (%) (Auto) 9.0, Eosinophils (%) (Auto) 2.0, Basophils (%) (Auto) 1.3, Sodium Level 136, Potassium Level 4.1, Chloride Level 102, Carbon Dioxide Level 30, Anion Gap 5, Blood Urea Nitrogen 10, Creatinine 0.5L, Estimat Glomerular Filtration Rate > 60, Glucose Level 317H, Calcium Level 8.4L Height (Feet): 5 Height (Inches): 5.00 Weight (Pounds): 97 General Appearance: no apparent distress Neck: normal alignment Cardiovascular: normal rate Respiratory/Chest: lungs clear Abdomen: normal bowel sounds Objective Current Medications Medications (Trade) Dose Ordered Sig/Yasemin Route PRN Reason Start Time Stop Time Status Last Admin Dose Admin Acetaminophen (Tylenol) 650 mg Q6H PRN ORAL Mild Pain/Temp > 100.5 11/16/18 17:30 12/15/18 17:29 Dextrose (Dextrose 50%) 25 ml Q30M PRN IV Hypoglycemia 11/17/18 06:30 12/17/18 06:29 Dextrose (Dextrose 50%) 50 ml Q30M PRN IV Hypoglycemia 11/17/18 06:30 12/17/18 06:29 Docusate Sodium (Colace) 100 mg TWICE A DAY ORAL 11/17/18 09:00 12/17/18 08:59 11/17/18 17:29 Heparin Sodium (Porcine) (Heparin 5000 units/ml) 5,000 units EVERY 12 HOURS SUBQ 11/16/18 21:00 12/16/18 08:59 11/17/18 20:50 Insulin Aspart (NovoLOG) BEFORE MEALS AND HS SUBQ 11/16/18 21:00 12/16/18 06:29 11/18/18 05:44 Insulin Aspart (NovoLOG) 8 units NOVOTIAC SUBQ 11/17/18 06:30 12/16/18 06:29 11/18/18 05:45 Insulin Detemir (Levemir) 12 units BID SUBQ 11/17/18 09:00 12/17/18 08:59 11/17/18 09:36 Ondansetron HCl (Zofran) 4 mg Q6H PRN IVP Nausea & Vomiting 11/16/18 17:30 12/15/18 17:29 Pantoprazole (Protonix) 40 mg DAILY ORAL 11/16/18 19:45 12/16/18 19:44 11/17/18 09:30 Merrick Rivera MD Nov 18, 2018 07:11
--- NOTE | 2018-11-18 07:14 | NUR ---
HAND-OFF: Report given to Linda ANDERSON.
[2018-11-18 08:00] VITALS: BP 94/62
--- NOTE | 2018-11-18 08:00 | Nephrology Progress Note ---
Assessment/Plan Problem List: (1) Hyperglycemia (2) Electrolyte abnormality Assessment Hyperglycemia - admitted with BS over 900 Electrolyte abnormality IDDM Plan stable from renal stand Per Endo ELectrolyte supplement as needed per orders Subjective ROS Limited/Unobtainable: No Objective Objective Last 24 Hour Vital Signs Date Time Temp Pulse Resp B/P (MAP) Pulse Ox O2 Delivery O2 Flow Rate FiO2 11/18/18 04:00 97.8 74 18 103/64 (77) 74 11/18/18 00:00 98.3 78 19 107/69 (82) 78 11/17/18 22:20 Room Air 11/17/18 20:00 97.7 91 20 105/63 (77) 91 11/17/18 16:00 98.1 80 20 99/63 (75) 97 11/17/18 12:00 98.2 81 18 94/60 (71) 98 11/17/18 09:00 Room Air 11/17/18 08:00 98.5 85 17 99/61 (74) 98 Intake and Output 11/17/18 11/18/18 19:00 07:00 Intake Total 500 ml Balance 500 ml Intake Oral 500 ml # Bowel Movements 1 1 Laboratory Tests 11/18/18 05:20: White Blood Count 4.3L, Red Blood Count 3.40L, Hemoglobin 11.4L, Hematocrit 34.6L, Mean Corpuscular Volume 102H, Mean Corpuscular Hemoglobin 33.6H, Mean Corpuscular Hemoglobin Concent 32.9, Red Cell Distribution Width 12.3, Platelet Count 364, Mean Platelet Volume 4.4L, Neutrophils (%) (Auto) 41.3L, Lymphocytes (%) (Auto) 46.4H, Monocytes (%) (Auto) 9.0, Eosinophils (%) (Auto) 2.0, Basophils (%) (Auto) 1.3, Sodium Level 136, Potassium Level 4.1, Chloride Level 102, Carbon Dioxide Level 30, Anion Gap 5, Blood Urea Nitrogen 10, Creatinine 0.5L, Estimat Glomerular Filtration Rate > 60, Glucose Level 317H, Calcium Level 8.4L Height (Feet): 5 Height (Inches): 5.00 Weight (Pounds): 97 General Appearance: no apparent distress Objective no change Kj Pimentel MD Nov 18, 2018 08:00
--- NOTE | 2018-11-18 08:25 | NUR ---
NURSE NOTES: Received report from JUSTIN Morales. Pt in bathroom, ambulatory, talkative, no apparent distress noted, bed in lowest position, oriented pt call light in bathroom.
[2018-11-18] MEDS: Docusate 100mg cap ORAL SCH ×2 (09:47→17:24)
[2018-11-18] MEDS: Heparin 5000 units/ml inj SUBQ SCH ×2 (09:49→20:52)
[2018-11-18] MEDS: Levemir Flexpen SUBQ SCH ×2 (09:50→17:26)
--- NOTE | 2018-11-18 10:44 | Pulmonology Progress Note ---
Assessment/Plan Assessment/Plan Pulmonary Consultation HPI Patient is a 43-year old man with history of Insulin Dependent Diabetes Mellitus who presents with DKA, c/o abdominal pain, nausea fatigue and elevated glucose readings. He has not had insulin in 2 months. He is also complaining of left ankle pain. He denies recent illness such as fever, chills, nasal congestion, sore throat. He does note a nonproductive cough. Denies any diarrhea, dysuria. Denies injury. No new complaints PMH: Insulin Dependent Diabetes Mellitus Physical Exam Vital Signs Noted General: Awake and alert, comfortable HEENT: NC/AT. EOMI. dry mucous membranes Cardiovascular: Tachycardic. S1 and S2 normal. No murmur appreciated Resp: Normal work of breathing. No cough, wheezing or crackles appreciated Abdomen: Abdomen is soft, nondistended. Somel tenderness palpation in the epigastrium. No masses. No guarding Skin: Intact. No abrasions, laceration or rash over the exposed skin MSK: Palpation of the anterior and posterior element of the medial malleolus of the left ankle. Some edema. Neuro: Awake and alert. Mentating appropriately. Impression: Insulin Dependent Diabetes Mellitus DKA, Hyperglycemia Ankle pain Plan: IVF Insulin gtt in ED - subsequently SQ Insulin - Lantus and ISS CXR negative for infiltrate Monitor labs PPX Test 11/15/18 18:12 11/15/18 18:20 11/15/18 19:06 White Blood Count 5.5 K/UL (4.8-10.8) Red Blood Count 3.48 M/UL (4.70-6.10) L Hemoglobin 11.8 G/DL (14.2-18.0) L Hematocrit 33.9 % (42.0-52.0) L Mean Corpuscular Volume 97 FL (80-99) Mean Corpuscular Hemoglobin 34.0 PG (27.0-31.0) H Mean Corpuscular Hemoglobin Concent 34.9 G/DL (32.0-36.0) Red Cell Distribution Width 11.8 % (11.6-14.8) Platelet Count 390 K/UL (150-450) Mean Platelet Volume 4.4 FL (6.5-10.1) L Neutrophils (%) (Auto) 71.1 % (45.0-75.0) Lymphocytes (%) (Auto) 16.8 % (20.0-45.0) L Monocytes (%) (Auto) 10.3 % (1.0-10.0) H Eosinophils (%) (Auto) 0.8 % (0.0-3.0) Basophils (%) (Auto) 1.0 % (0.0-2.0) Sodium Level 129 MMOL/L (136-145) L Potassium Level 3.7 MMOL/L (3.5-5.1) Chloride Level 92 MMOL/L (98-107) L Carbon Dioxide Level 18 MMOL/L (21-32) L Anion Gap 19 mmol/L (5-15) H Blood Urea Nitrogen 10 mg/dL (7-18) Creatinine 0.8 MG/DL (0.55-1.30) Estimate Glomerular Filtration Rate > 60 mL/min (>60) Glucose Level 903 MG/DL (74-106) *H Calcium Level 8.5 MG/DL (8.5-10.1) Magnesium Level 2.0 MG/DL (1.8-2.4) Total Bilirubin 0.4 MG/DL (0.2-1.0) Aspartate Amino Transferase (AST) 16 U/L (15-37) Alanine Aminotransferase (ALT) 15 U/L (12-78) Alkaline Phosphatase 416 U/L (46-116) H Total Protein 6.9 G/DL (6.4-8.2) Albumin 2.7 G/DL (3.4-5.0) L Globulin 4.2 g/dL Albumin/Globulin Ratio 0.6 (1.0-2.7) L Acetone Level Positive-small (NEGATIVE) Arterial Blood pH 7.317 (7.350-7.450) Arterial Blood Partial Pressure CO2 30.0 mmHg (35.0-45.0) L Arterial Blood Partial Pressure O2 100.4 mmHg (75.0-100.0) H Arterial Blood HCO3 15.0 mmol/L (22.0-26.0) *L Arterial Blood Oxygen Saturation 96.5 % (95-100) Arterial Blood Base Excess -10.0 (-2-2) *L Haris Test Positive Urine Color Pale yellow Urine Appearance Clear Urine pH 6 (4.5-8.0) Urine Specific [place] 1.005 (1.005-1.035) Urine Protein Negative (NEGATIVE) Urine Glucose (UA) 4+ (NEGATIVE) H Urine Ketones 3+ (NEGATIVE) H Urine Blood Negative (NEGATIVE) Urine Nitrite Negative (NEGATIVE) Urine Bilirubin Negative (NEGATIVE) Urine Urobilinogen Normal MG/DL (0.0-1.0) Urine Leukocyte Esterase Negative (NEGATIVE) EKG: Rate: normal Rhythm: NSR, no acute changes. Normal intervals. No ischemic changes. Chest X-Ray no consolidation, no effusion, no pneumothorax X-rays of the foot: previous hardware but does not obviously show periprosthetic fracture. He will be admitted for further monitoring. Subjective Allergies: Coded Allergies: No Known Allergies (Unverified , 11/15/18) Objective Last 24 Hour Vital Signs Date Time Temp Pulse Resp B/P (MAP) Pulse Ox O2 Delivery O2 Flow Rate FiO2 11/18/18 09:35 Room Air 11/18/18 08:00 97.2 85 16 94/62 (73) 98 11/18/18 04:00 97.8 74 18 103/64 (77) 74 11/18/18 00:00 98.3 78 19 107/69 (82) 78 11/17/18 22:20 Room Air 11/17/18 20:00 97.7 91 20 105/63 (77) 91 11/17/18 16:00 98.1 80 20 99/63 (75) 97 11/17/18 12:00 98.2 81 18 94/60 (71) 98 Intake and Output 11/17/18 11/18/18 18:59 06:59 Intake Total 500 ml Balance 500 ml Intake Oral 500 ml # Bowel Movements 1 1 Microbiology Date/Time Source Procedure Growth Status 11/15/18 20:17 Rectum - Final NO CARBAPENEM-RESISTANT ENTEROBACTERI... Complete 11/15/18 20:17 Rectum VRE Culture - Final NO VANCOMYCIN RESISTANT ENTEROCOCCUS ... Complete Laboratory Tests 11/18/18 05:20: White Blood Count 4.3L, Red Blood Count 3.40L, Hemoglobin 11.4L, Hematocrit 34.6L, Mean Corpuscular Volume 102H, Mean Corpuscular Hemoglobin 33.6H, Mean Corpuscular Hemoglobin Concent 32.9, Red Cell Distribution Width 12.3, Platelet Count 364, Mean Platelet Volume 4.4L, Neutrophils (%) (Auto) 41.3L, Lymphocytes (%) (Auto) 46.4H, Monocytes (%) (Auto) 9.0, Eosinophils (%) (Auto) 2.0, Basophils (%) (Auto) 1.3, Sodium Level 136, Potassium Level 4.1, Chloride Level 102, Carbon Dioxide Level 30, Anion Gap 5, Blood Urea Nitrogen 10, Creatinine 0.5L, Estimat Glomerular Filtration Rate > 60, Glucose Level 317H, Calcium Level 8.4L Current Medications Medications (Trade) Dose Ordered Sig/Yasemin Route PRN Reason Start Time Stop Time Status Last Admin Dose Admin Acetaminophen (Tylenol) 650 mg Q6H PRN ORAL Mild Pain/Temp > 100.5 11/16/18 17:30 12/15/18 17:29 Dextrose (Dextrose 50%) 25 ml Q30M PRN IV Hypoglycemia 11/17/18 06:30 12/17/18 06:29 Dextrose (Dextrose 50%) 50 ml Q30M PRN IV Hypoglycemia 11/17/18 06:30 12/17/18 06:29 Docusate Sodium (Colace) 100 mg TWICE A DAY ORAL 11/17/18 09:00 12/17/18 08:59 11/18/18 09:47 Heparin Sodium (Porcine) (Heparin 5000 units/ml) 5,000 units EVERY 12 HOURS SUBQ 11/16/18 21:00 12/16/18 08:59 11/18/18 09:49 Insulin Aspart (NovoLOG) BEFORE MEALS AND HS SUBQ 11/16/18 21:00 12/16/18 06:29 11/18/18 05:44 Insulin Aspart (NovoLOG) 8 units NOVOTIAC SUBQ 11/17/18 06:30 12/16/18 06:29 11/18/18 05:45 Insulin Detemir (Levemir) 12 units BID SUBQ 11/17/18 09:00 12/17/18 08:59 11/18/18 09:50 Ondansetron HCl (Zofran) 4 mg Q6H PRN IVP Nausea & Vomiting 11/16/18 17:30 12/15/18 17:29 Pantoprazole (Protonix) 40 mg DAILY ORAL 11/16/18 19:45 12/16/18 19:44 11/18/18 09:48 Solomon Lanier MD Nov 18, 2018 10:44
[2018-11-18 11:58] VITALS: BP 94/61
--- NOTE | 2018-11-18 13:50 | GI Progress Note ---
Assessment/Plan Problems: (1) Electrolyte abnormality ICD Codes: E87.8 - Other disorders of electrolyte and fluid balance, not elsewhere classified SNOMED: 298781489 (2) Nausea & vomiting ICD Codes: R11.2 - Nausea with vomiting, unspecified SNOMED: 96166678 (3) Abdominal pain ICD Codes: R10.9 - Unspecified abdominal pain SNOMED: 04637240 (4) Diabetes mellitus with ketoacidosis ICD Codes: E11.10 - Type 2 diabetes mellitus with ketoacidosis without coma SNOMED: 65759385, 243022642 (5) Hyperglycemia ICD Codes: R73.9 - Hyperglycemia, unspecified SNOMED: 85082623 Status: stable Status Narrative Discussed with Dr. Car. Assessment/Plan nausea 2/2 to DKA zofran prn advance diet DM management prn transfusions ppi electrolyte correction dc planning The patient was seen and examined at bedside and all new and available data was reviewed in the patients chart. I agree with the above findings, impression and plan. (Patient seen earlier today. Signature stamp does not reflect patient encounter time.). - Surjit Car MD Subjective Gastrointestinal/Abdominal: Reports: no symptoms Objective Last 24 Hour Vital Signs Date Time Temp Pulse Resp B/P (MAP) Pulse Ox O2 Delivery O2 Flow Rate FiO2 11/18/18 11:58 98.1 81 16 94/61 (72) 98 11/18/18 09:35 Room Air 11/18/18 08:00 97.2 85 16 94/62 (73) 98 11/18/18 04:00 97.8 74 18 103/64 (77) 74 11/18/18 00:00 98.3 78 19 107/69 (82) 78 11/17/18 22:20 Room Air 11/17/18 20:00 97.7 91 20 105/63 (77) 91 11/17/18 16:00 98.1 80 20 99/63 (75) 97 Intake and Output 11/17/18 11/18/18 18:59 06:59 Intake Total 500 ml Balance 500 ml Intake Oral 500 ml # Bowel Movements 1 1 Laboratory Tests Test 11/18/18 05:20 White Blood Count 4.3 K/UL (4.8-10.8) L Red Blood Count 3.40 M/UL (4.70-6.10) L Hemoglobin 11.4 G/DL (14.2-18.0) L Hematocrit 34.6 % (42.0-52.0) L Mean Corpuscular Volume 102 FL (80-99) H Mean Corpuscular Hemoglobin 33.6 PG (27.0-31.0) H Mean Corpuscular Hemoglobin Concent 32.9 G/DL (32.0-36.0) Red Cell Distribution Width 12.3 % (11.6-14.8) Platelet Count 364 K/UL (150-450) Mean Platelet Volume 4.4 FL (6.5-10.1) L Neutrophils (%) (Auto) 41.3 % (45.0-75.0) L Lymphocytes (%) (Auto) 46.4 % (20.0-45.0) H Monocytes (%) (Auto) 9.0 % (1.0-10.0) Eosinophils (%) (Auto) 2.0 % (0.0-3.0) Basophils (%) (Auto) 1.3 % (0.0-2.0) Sodium Level 136 MMOL/L (136-145) Potassium Level 4.1 MMOL/L (3.5-5.1) Chloride Level 102 MMOL/L (98-107) Carbon Dioxide Level 30 MMOL/L (21-32) Anion Gap 5 mmol/L (5-15) Blood Urea Nitrogen 10 mg/dL (7-18) Creatinine 0.5 MG/DL (0.55-1.30) L Estimat Glomerular Filtration Rate > 60 mL/min (>60) Glucose Level 317 MG/DL (74-106) H Calcium Level 8.4 MG/DL (8.5-10.1) L Height (Feet): 5 Height (Inches): 5.00 Weight (Pounds): 97 General Appearance: WD/WN, no apparent distress, alert Cardiovascular: normal rate Respiratory/Chest: normal breath sounds, no respiratory distress Abdominal Exam: normal bowel sounds, non tender, soft Extremities: normal range of motion, non-tender Moriah Dang NP Nov 18, 2018 13:49
--- NOTE | 2018-11-18 13:57 | NUR ---
[employer]HEMAT[employer] ACADEMIC CHAIR SI: HYPERGLYCEMIA T. 97.2 HR 85 RR 16 B/P 94/62 GLU 317 IS: COLACE PO INSULIN SUBC HEPARIN SUBC MED/SURG STATUS
--- NOTE | 2018-11-18 13:57 | NUR ---
NURSE NOTES: Notified KAIT Fuentes for Dr. Car pt has RUQ pain 8/, only Tylenol ordered, asked for additional pain medication order.
[2018-11-18 16:00] VITALS: BP 100/64
[2018-11-18] MEDS: HYDROcodone/Acetamin 5/325 tab ORAL PRN (17:25)
[2018-11-18 20:00] VITALS: BP 100/53
--- NOTE | 2018-11-18 20:00 | NUR ---
NURSE NOTES: RECEIVED PATIENT LYING IN BED, AWAKE, ALERT/ORIENTED X4, VERBALLY RESPONSIVE, DENIES PAIN. NO SIGNS AND SYMPTOMS OF ACUTE CARDIO RESPIRATORY DISTRESS/SHORTNESS OF BREATH, DENIES CHEST PAIN, NO PERIPHERAL EDEMA NOTED. NO REPORT OF GI DISCOMFORT, EXCELLENT PO INTAKE, NO N/V/D. SIDE RAILS UP X2, BED IN LOWEST POSITION FOR SAFETY, ENCOURAGED PATIENT TO UTILIZE CALL LIGHT FOR ASSISTANCE, VERBALIZED UNDERSTANDING. CONTINUE WITH CURRENT PLAN OF CARE. NAD.
--- NOTE | 2018-11-18 21:00 | NUR ---
NURSE NOTES: MONITORED BLOOD GLUCOSE LEVEL VIA GLUCOMETER WITH RESULT 223MG/DL, ASSESSED FOR SIGNS AND SYMPTOMS OF HYPERGLYCEMIA, NONE NOTED, ADM. 8 UNITS NOVOLOG INSULIN VIA SLIDING SCALE, TOLERATED WELL, NO ADVERSE REACTION NOTED AFTER 15 MINUTES.
--- NOTE | 2018-11-18 22:35 | General Progress Note ---
Assessment/Plan Problem List: (1) Diabetes mellitus with ketoacidosis ICD Codes: E11.10 - Type 2 diabetes mellitus with ketoacidosis without coma SNOMED: 50039548, 115001797 (2) Hyperglycemia ICD Codes: R73.9 - Hyperglycemia, unspecified SNOMED: 56936878 (3) Abdominal pain ICD Codes: R10.9 - Unspecified abdominal pain SNOMED: 99380586 (4) Nausea & vomiting ICD Codes: R11.2 - Nausea with vomiting, unspecified SNOMED: 17245022 (5) Electrolyte abnormality ICD Codes: E87.8 - Other disorders of electrolyte and fluid balance, not elsewhere classified SNOMED: 820941312 Status: stable, progressing Assessment/Plan: still labile sugar niddm dka revolved check lytes clinically improving Subjective ROS Limited/Unobtainable: Yes Allergies: Coded Allergies: No Known Allergies (Unverified , 11/15/18) Objective Last 24 Hour Vital Signs Date Time Temp Pulse Resp B/P (MAP) Pulse Ox O2 Delivery O2 Flow Rate FiO2 11/18/18 20:00 98.5 99 16 100/53 (69) 99 11/18/18 17:55 98.3 11/18/18 16:00 98.3 84 17 100/64 (76) 99 11/18/18 11:58 98.1 81 16 94/61 (72) 98 11/18/18 09:35 Room Air 11/18/18 08:00 97.2 85 16 94/62 (73) 98 11/18/18 04:00 97.8 74 18 103/64 (77) 74 11/18/18 00:00 98.3 78 19 107/69 (82) 78 Intake and Output 11/17/18 11/18/18 19:00 07:00 Intake Total 500 ml Balance 500 ml Intake Oral 500 ml # Bowel Movements 1 1 Laboratory Tests 11/18/18 05:20: White Blood Count 4.3L, Red Blood Count 3.40L, Hemoglobin 11.4L, Hematocrit 34.6L, Mean Corpuscular Volume 102H, Mean Corpuscular Hemoglobin 33.6H, Mean Corpuscular Hemoglobin Concent 32.9, Red Cell Distribution Width 12.3, Platelet Count 364, Mean Platelet Volume 4.4L, Neutrophils (%) (Auto) 41.3L, Lymphocytes (%) (Auto) 46.4H, Monocytes (%) (Auto) 9.0, Eosinophils (%) (Auto) 2.0, Basophils (%) (Auto) 1.3, Sodium Level 136, Potassium Level 4.1, Chloride Level 102, Carbon Dioxide Level 30, Anion Gap 5, Blood Urea Nitrogen 10, Creatinine 0.5L, Estimat Glomerular Filtration Rate > 60, Glucose Level 317H, Calcium Level 8.4L Height (Feet): 5 Height (Inches): 5.00 Weight (Pounds): 97 Cardiovascular: normal rate Respiratory/Chest: lungs clear Abdomen: soft Klever Vee MD Nov 18, 2018 22:35
[2018-11-19] VITALS: BP 99/61
--- NOTE | 2018-11-19 01:04 | Cardiology Progress Note ---
Assessment/Plan Assessment/Plan LATE ENTRY NOTE Date of Encounter: 11/18/18 Time of Encounter: 21: 15 1. Sinus tachycardia due to severe volume depletion associated with DKA, resolved, continue hydration. 2. Diabetic ketoacidosis, resolved, anion gap of 5. 3. Hyponatremia, resolved. Subjective Subjective No cardiac events noted. Objective Last 24 Hour Vital Signs Date Time Temp Pulse Resp B/P (MAP) Pulse Ox O2 Delivery O2 Flow Rate FiO2 11/18/18 20:00 98.5 99 16 100/53 (69) 99 11/18/18 17:55 98.3 11/18/18 16:00 98.3 84 17 100/64 (76) 99 11/18/18 11:58 98.1 81 16 94/61 (72) 98 11/18/18 09:35 Room Air 11/18/18 08:00 97.2 85 16 94/62 (73) 98 11/18/18 04:00 97.8 74 18 103/64 (77) 74 Intake and Output 11/18/18 11/19/18 19:00 07:00 Intake Total 1360 ml Output Total 2075 ml Balance -715 ml Intake Oral 1360 ml Output Urine Total 2075 ml # Bowel Movements 3 Laboratory Tests Test 11/18/18 05:20 White Blood Count 4.3 K/UL (4.8-10.8) L Red Blood Count 3.40 M/UL (4.70-6.10) L Hemoglobin 11.4 G/DL (14.2-18.0) L Hematocrit 34.6 % (42.0-52.0) L Mean Corpuscular Volume 102 FL (80-99) H Mean Corpuscular Hemoglobin 33.6 PG (27.0-31.0) H Mean Corpuscular Hemoglobin Concent 32.9 G/DL (32.0-36.0) Red Cell Distribution Width 12.3 % (11.6-14.8) Platelet Count 364 K/UL (150-450) Mean Platelet Volume 4.4 FL (6.5-10.1) L Neutrophils (%) (Auto) 41.3 % (45.0-75.0) L Lymphocytes (%) (Auto) 46.4 % (20.0-45.0) H Monocytes (%) (Auto) 9.0 % (1.0-10.0) Eosinophils (%) (Auto) 2.0 % (0.0-3.0) Basophils (%) (Auto) 1.3 % (0.0-2.0) Sodium Level 136 MMOL/L (136-145) Potassium Level 4.1 MMOL/L (3.5-5.1) Chloride Level 102 MMOL/L (98-107) Carbon Dioxide Level 30 MMOL/L (21-32) Anion Gap 5 mmol/L (5-15) Blood Urea Nitrogen 10 mg/dL (7-18) Creatinine 0.5 MG/DL (0.55-1.30) L Estimat Glomerular Filtration Rate > 60 mL/min (>60) Glucose Level 317 MG/DL (74-106) H Calcium Level 8.4 MG/DL (8.5-10.1) L Objective HEENT: Atraumatic, normocephalic. Anicteric. Pupils are equal, round, and reactive to light and accommodation. Extraocular muscles intact. Dry mucosal membranes. NECK: JVP less than 5 cm. No carotid bruit. Carotid upstrokes 2+ bilaterally. CARDIOVASCULAR: Normal S1 and S2. Regular rate and rhythm. No murmurs, gallops , or rubs. LUNGS: Clear to auscultation bilaterally. ABDOMEN: Soft, nontender, and nondistended. No hepatosplenomegaly. Positive bowel sounds. EXTREMITIES: No evidence of edema, clubbing, or cyanosis. Kaz Manuel MD Nov 19, 2018 01:04
[2018-11-19 04:00] VITALS: BP 108/69
[2018-11-19 05:47] LABS: BASOPHILS % (AUTO) 1.2 % (0.0-2.0); HEMATOCRIT 33.9 % (42.0-52.0); LYMPHOCYTES % (AUTO) 43.5 % (20.0-45.0); MEAN CORPUSCULAR VOLUME 102 FL (80-99); MONOCYTES % (AUTO) 10.6 % (1.0-10.0); NEUTROPHILS % (AUTO) 40.7 % (45.0-75.0); PLATELET COUNT 357 K/UL (150-450); RED BLOOD COUNT 3.31 M/UL (4.70-6.10); RED CELL DISTRIBUTION WIDTH 12.3 % (11.6-14.8); WHITE BLOOD COUNT 3.7 K/UL (4.8-10.8)
[2018-11-19 05:54] LABS: ANION GAP 8 mmol/L (5-15); BLOOD UREA NITROGEN 16 mg/dL (7-18); CALCIUM 8.3 MG/DL (8.5-10.1); CARBON DIOXIDE 28 MMOL/L (21-32); CHLORIDE 105 MMOL/L (98-107); CREATININE 0.5 MG/DL (0.55-1.30); POTASSIUM 4.2 MMOL/L (3.5-5.1); SODIUM 141 MMOL/L (136-145)
--- NOTE | 2018-11-19 06:31 | NUR ---
NURSE NOTES: NO SIGNIFICANT CHANGE OF CONDITION NOTED THROUGHOUT THE NIGHT. RESTED WELL/SAFETY MAINTAINED. NAD.
[2018-11-19] MEDS: NovoLOG Insulin Flexpen SUBQ SCH ×7 (06:48→21:27)
--- NOTE | 2018-11-19 07:17 | NUR ---
HAND-OFF: Report given to JUSTIN RODARTE.
--- NOTE | 2018-11-19 07:38 | NUR ---
NURSE NOTES: Received report from JUSTIN Winkler. Pt in bed, watching TV and eating breakfast. Patient complaining of abdominal pain, discussed plan of care, no apparent distress noted. Bed in lowest position, call light within reach.
[2018-11-19 08:00] VITALS: BP 91/59
--- NOTE | 2018-11-19 08:00 | NUR ---
NURSE NOTES: Spoke with pt via visual effects editor. Pt states that roughly 7 months ago he was admitted to [facility] for a fungal infection of the intestine and the abdominal pain he currently has feel like that pain he had at that time. Pt also stated in the last two months he has passed out when trying to go to the bathroom and hit is head on one occasion. Pt states he continues to have headache and dizziness. RN notified KAIT Fuentes for Dr. Car regarding the previous fungal infection and current abdominal pain issues. RN notified Dr. Vee regarding previous fungal infection and unrelieved abdominal pain issues as well as the recent falls with headaches and dizziness. Addendum: 11/19/18 at 1129 by CAYDEN NELSON RN NURSE NOTES: KAIT Fuentes stated to notify Dr. Wan as he is cover. RN spoke directly to Dr. Wan regarding pt's situation. Dr. Vee he contacted Dr. Zamorano for the passing out, Dr. Patria Wright for ID, and Dr. Car for abd pain
--- NOTE | 2018-11-19 08:38 | General Progress Note ---
Assessment/Plan Problem List: (1) Diabetes mellitus with ketoacidosis ICD Codes: E11.10 - Type 2 diabetes mellitus with ketoacidosis without coma SNOMED: 71478437, 523704822 (2) Hyperglycemia ICD Codes: R73.9 - Hyperglycemia, unspecified SNOMED: 03745821 (3) Abdominal pain ICD Codes: R10.9 - Unspecified abdominal pain SNOMED: 62037285 (4) Nausea & vomiting ICD Codes: R11.2 - Nausea with vomiting, unspecified SNOMED: 34869207 Status: stable, progressing Assessment/Plan: increase Levemir to 16 units bid continue Novolog 8 units ac tid continue NISS ac / hs Subjective Allergies: Coded Allergies: No Known Allergies (Unverified , 11/15/18) Subjective events noted glucose values still on higher side Item Value Date Time Bedside Blood Glucose 285 mg/dl H 11/19/18 0657 Bedside Blood Glucose 223 mg/dl H 11/18/18 2115 Bedside Blood Glucose 85 mg/dl 11/18/18 1726 Bedside Blood Glucose 324 mg/dl H 11/18/18 0950 Bedside Blood Glucose 286 mg/dl H 11/18/18 1153 Bedside Blood Glucose 301 mg/dl H 11/18/18 0603 Objective Last 24 Hour Vital Signs Date Time Temp Pulse Resp B/P (MAP) Pulse Ox O2 Delivery O2 Flow Rate FiO2 11/19/18 04:00 97.3 61 16 108/69 (82) 95 11/19/18 00:00 97.7 90 16 99/61 (74) 97 11/18/18 21:00 Room Air 11/18/18 20:00 98.5 99 16 100/53 (69) 99 11/18/18 17:55 98.3 11/18/18 16:00 98.3 84 17 100/64 (76) 99 11/18/18 11:58 98.1 81 16 94/61 (72) 98 11/18/18 09:35 Room Air Intake and Output 11/18/18 11/19/18 19:00 07:00 Intake Total 1360 ml Output Total 2075 ml Balance -715 ml Intake Oral 1360 ml Output Urine Total 2075 ml # Bowel Movements 3 Laboratory Tests 11/19/18 05:04: White Blood Count 3.7L, Red Blood Count 3.31L, Hemoglobin 11.0L, Hematocrit 33.9L, Mean Corpuscular Volume 102H, Mean Corpuscular Hemoglobin 33.2H, Mean Corpuscular Hemoglobin Concent 32.4, Red Cell Distribution Width 12.3, Platelet Count 357, Mean Platelet Volume 4.9L, Neutrophils (%) (Auto) 40.7L, Lymphocytes (%) (Auto) 43.5, Monocytes (%) (Auto) 10.6H, Eosinophils (%) (Auto) 4.0H, Basophils (%) (Auto) 1.2, Sodium Level 141, Potassium Level 4.2, Chloride Level 105, Carbon Dioxide Level 28, Anion Gap 8, Blood Urea Nitrogen 16, Creatinine 0.5L, Estimat Glomerular Filtration Rate > 60, Glucose Level 303H, Calcium Level 8.3L Height (Feet): 5 Height (Inches): 5.00 Weight (Pounds): 100 General Appearance: no apparent distress Neck: normal alignment Cardiovascular: normal rate Respiratory/Chest: lungs clear Abdomen: normal bowel sounds Objective Current Medications Medications (Trade) Dose Ordered Sig/Yasemin Route PRN Reason Start Time Stop Time Status Last Admin Dose Admin Acetaminophen (Tylenol) 650 mg Q6H PRN ORAL Mild Pain/Temp > 100.5 11/16/18 17:30 12/15/18 17:29 Acetaminophen/ Hydrocodone Bitart ([place] 5/325) 1 tab Q8H PRN ORAL For pain 7-10 11/18/18 16:45 11/25/18 16:44 11/18/18 17:25 Dextrose (Dextrose 50%) 25 ml Q30M PRN IV Hypoglycemia 11/17/18 06:30 12/17/18 06:29 Dextrose (Dextrose 50%) 50 ml Q30M PRN IV Hypoglycemia 11/17/18 06:30 12/17/18 06:29 Docusate Sodium (Colace) 100 mg TWICE A DAY ORAL 11/17/18 09:00 12/17/18 08:59 11/18/18 17:24 Heparin Sodium (Porcine) (Heparin 5000 units/ml) 5,000 units EVERY 12 HOURS SUBQ 11/16/18 21:00 12/16/18 08:59 11/18/18 20:52 Insulin Aspart (NovoLOG) BEFORE MEALS AND HS SUBQ 11/16/18 21:00 12/16/18 06:29 11/19/18 06:48 Insulin Aspart (NovoLOG) 8 units NOVOTIAC SUBQ 11/17/18 06:30 12/16/18 06:29 11/19/18 06:48 Insulin Detemir (Levemir) 12 units BID SUBQ 11/17/18 09:00 12/17/18 08:59 11/18/18 17:26 Ondansetron HCl (Zofran) 4 mg Q6H PRN IVP Nausea & Vomiting 11/16/18 17:30 12/15/18 17:29 Pantoprazole (Protonix) 40 mg DAILY ORAL 11/16/18 19:45 12/16/18 19:44 11/18/18 09:48 Merrick Rivera MD Nov 19, 2018 08:38
[2018-11-19] MEDS: Docusate 100mg cap ORAL SCH ×2 (08:41→17:12)
[2018-11-19] MEDS: HYDROcodone/Acetamin 5/325 tab ORAL PRN ×2 (08:41→21:29)
[2018-11-19] MEDS: Heparin 5000 units/ml inj SUBQ SCH ×2 (08:43→21:25)
[2018-11-19] MEDS: Levemir Flexpen SUBQ SCH ×2 (08:59→17:18)
--- NOTE | 2018-11-19 10:28 | General Progress Note ---
Assessment/Plan Problem List: (1) Diabetes mellitus with ketoacidosis ICD Codes: E11.10 - Type 2 diabetes mellitus with ketoacidosis without coma SNOMED: 17247701, 452513888 (2) Hyperglycemia ICD Codes: R73.9 - Hyperglycemia, unspecified SNOMED: 65896050 (3) Abdominal pain ICD Codes: R10.9 - Unspecified abdominal pain SNOMED: 63040856 (4) Nausea & vomiting ICD Codes: R11.2 - Nausea with vomiting, unspecified SNOMED: 32602587 (5) Electrolyte abnormality ICD Codes: E87.8 - Other disorders of electrolyte and fluid balance, not elsewhere classified SNOMED: 751248862 Status: stable, progressing Assessment/Plan: diet f/u bs control cbc bmp am Subjective Constitutional: Reports: weakness Allergies: Coded Allergies: No Known Allergies (Unverified , 11/15/18) All Systems: reviewed and negative except above Subjective calm in bed Objective Last 24 Hour Vital Signs Date Time Temp Pulse Resp B/P (MAP) Pulse Ox O2 Delivery O2 Flow Rate FiO2 11/19/18 08:00 97.5 85 20 91/59 (70) 97 11/19/18 04:00 97.3 61 16 108/69 (82) 95 11/19/18 00:00 97.7 90 16 99/61 (74) 97 11/18/18 21:00 Room Air 11/18/18 20:00 98.5 99 16 100/53 (69) 99 11/18/18 17:55 98.3 11/18/18 16:00 98.3 84 17 100/64 (76) 99 11/18/18 11:58 98.1 81 16 94/61 (72) 98 Intake and Output 11/18/18 11/19/18 19:00 07:00 Intake Total 1360 ml Output Total 2075 ml Balance -715 ml Intake Oral 1360 ml Output Urine Total 2075 ml # Bowel Movements 3 Laboratory Tests 11/19/18 05:04: White Blood Count 3.7L, Red Blood Count 3.31L, Hemoglobin 11.0L, Hematocrit 33.9L, Mean Corpuscular Volume 102H, Mean Corpuscular Hemoglobin 33.2H, Mean Corpuscular Hemoglobin Concent 32.4, Red Cell Distribution Width 12.3, Platelet Count 357, Mean Platelet Volume 4.9L, Neutrophils (%) (Auto) 40.7L, Lymphocytes (%) (Auto) 43.5, Monocytes (%) (Auto) 10.6H, Eosinophils (%) (Auto) 4.0H, Basophils (%) (Auto) 1.2, Sodium Level 141, Potassium Level 4.2, Chloride Level 105, Carbon Dioxide Level 28, Anion Gap 8, Blood Urea Nitrogen 16, Creatinine 0.5L, Estimat Glomerular Filtration Rate > 60, Glucose Level 303H, Calcium Level 8.3L Height (Feet): 5 Height (Inches): 5.00 Weight (Pounds): 100 General Appearance: lethargic EENT: normal ENT inspection Neck: normal alignment Cardiovascular: normal peripheral pulses, normal rate, regular rhythm Respiratory/Chest: chest wall non-tender, lungs clear, normal breath sounds Abdomen: normal bowel sounds, non tender, soft Extremities: normal inspection Edema: no edema noted Arm (L), no edema noted Arm (R), no edema noted Leg (L), no edema noted Leg (R), no edema noted Pedal (L), no edema noted Pedal (R), no edema noted Generalized Neurologic: motor weakness Skin: normal pigmentation, warm/dry Hussein Hewitt DO Nov 19, 2018 10:28
[2018-11-19 12:00] VITALS: BP 93/58
--- NOTE | 2018-11-19 15:14 | Pulmonology Progress Note ---
Assessment/Plan Assessment/Plan Pulmonary Consultation HPI Patient is a 43-year old man with history of Insulin Dependent Diabetes Mellitus who presents with DKA, c/o abdominal pain, nausea fatigue and elevated glucose readings. He has not had insulin in 2 months. He is also complaining of left ankle pain. He denies recent illness such as fever, chills, nasal congestion, sore throat. He does note a nonproductive cough. Denies any diarrhea, dysuria. Denies injury. No new complaints PMH: Insulin Dependent Diabetes Mellitus Physical Exam Vital Signs Noted General: Awake and alert, comfortable HEENT: NC/AT. EOMI. dry mucous membranes Cardiovascular: Tachycardic. S1 and S2 normal. No murmur appreciated Resp: Normal work of breathing. No cough, wheezing or crackles appreciated Abdomen: Abdomen is soft, nondistended. Somel tenderness palpation in the epigastrium. No masses. No guarding Skin: Intact. No abrasions, laceration or rash over the exposed skin MSK: Palpation of the anterior and posterior element of the medial malleolus of the left ankle. Some edema. Neuro: Awake and alert. Mentating appropriately. Impression: Insulin Dependent Diabetes Mellitus DKA, Hyperglycemia Ankle pain Plan: IVF Insulin gtt in ED - subsequently SQ Insulin - Lantus and ISS CXR negative for infiltrate Monitor labs PPX Test 11/15/18 18:12 11/15/18 18:20 11/15/18 19:06 White Blood Count 5.5 K/UL (4.8-10.8) Red Blood Count 3.48 M/UL (4.70-6.10) L Hemoglobin 11.8 G/DL (14.2-18.0) L Hematocrit 33.9 % (42.0-52.0) L Mean Corpuscular Volume 97 FL (80-99) Mean Corpuscular Hemoglobin 34.0 PG (27.0-31.0) H Mean Corpuscular Hemoglobin Concent 34.9 G/DL (32.0-36.0) Red Cell Distribution Width 11.8 % (11.6-14.8) Platelet Count 390 K/UL (150-450) Mean Platelet Volume 4.4 FL (6.5-10.1) L Neutrophils (%) (Auto) 71.1 % (45.0-75.0) Lymphocytes (%) (Auto) 16.8 % (20.0-45.0) L Monocytes (%) (Auto) 10.3 % (1.0-10.0) H Eosinophils (%) (Auto) 0.8 % (0.0-3.0) Basophils (%) (Auto) 1.0 % (0.0-2.0) Sodium Level 129 MMOL/L (136-145) L Potassium Level 3.7 MMOL/L (3.5-5.1) Chloride Level 92 MMOL/L (98-107) L Carbon Dioxide Level 18 MMOL/L (21-32) L Anion Gap 19 mmol/L (5-15) H Blood Urea Nitrogen 10 mg/dL (7-18) Creatinine 0.8 MG/DL (0.55-1.30) Estimate Glomerular Filtration Rate > 60 mL/min (>60) Glucose Level 903 MG/DL (74-106) *H Calcium Level 8.5 MG/DL (8.5-10.1) Magnesium Level 2.0 MG/DL (1.8-2.4) Total Bilirubin 0.4 MG/DL (0.2-1.0) Aspartate Amino Transferase (AST) 16 U/L (15-37) Alanine Aminotransferase (ALT) 15 U/L (12-78) Alkaline Phosphatase 416 U/L (46-116) H Total Protein 6.9 G/DL (6.4-8.2) Albumin 2.7 G/DL (3.4-5.0) L Globulin 4.2 g/dL Albumin/Globulin Ratio 0.6 (1.0-2.7) L Acetone Level Positive-small (NEGATIVE) Arterial Blood pH 7.317 (7.350-7.450) Arterial Blood Partial Pressure CO2 30.0 mmHg (35.0-45.0) L Arterial Blood Partial Pressure O2 100.4 mmHg (75.0-100.0) H Arterial Blood HCO3 15.0 mmol/L (22.0-26.0) *L Arterial Blood Oxygen Saturation 96.5 % (95-100) Arterial Blood Base Excess -10.0 (-2-2) *L Haris Test Positive Urine Color Pale yellow Urine Appearance Clear Urine pH 6 (4.5-8.0) Urine Specific [place] 1.005 (1.005-1.035) Urine Protein Negative (NEGATIVE) Urine Glucose (UA) 4+ (NEGATIVE) H Urine Ketones 3+ (NEGATIVE) H Urine Blood Negative (NEGATIVE) Urine Nitrite Negative (NEGATIVE) Urine Bilirubin Negative (NEGATIVE) Urine Urobilinogen Normal MG/DL (0.0-1.0) Urine Leukocyte Esterase Negative (NEGATIVE) EKG: Rate: normal Rhythm: NSR, no acute changes. Normal intervals. No ischemic changes. Chest X-Ray no consolidation, no effusion, no pneumothorax X-rays of the foot: previous hardware but does not obviously show periprosthetic fracture. He will be admitted for further monitoring. Subjective ROS Limited/Unobtainable: No Allergies: Coded Allergies: No Known Allergies (Unverified , 11/15/18) Objective Last 24 Hour Vital Signs Date Time Temp Pulse Resp B/P (MAP) Pulse Ox O2 Delivery O2 Flow Rate FiO2 11/19/18 12:00 97.9 80 20 93/58 (70) 98 11/19/18 09:11 97.3 11/19/18 09:00 Room Air 11/19/18 08:00 97.5 85 20 91/59 (70) 97 11/19/18 04:00 97.3 61 16 108/69 (82) 95 11/19/18 00:00 97.7 90 16 99/61 (74) 97 11/18/18 21:00 Room Air 11/18/18 20:00 98.5 99 16 100/53 (69) 99 11/18/18 16:00 98.3 84 17 100/64 (76) 99 Intake and Output 11/18/18 11/19/18 18:59 06:59 Intake Total 1360 ml Output Total 2075 ml Balance -715 ml Intake Oral 1360 ml Output Urine Total 2075 ml # Bowel Movements 3 Laboratory Tests 11/19/18 05:04: White Blood Count 3.7L, Red Blood Count 3.31L, Hemoglobin 11.0L, Hematocrit 33.9L, Mean Corpuscular Volume 102H, Mean Corpuscular Hemoglobin 33.2H, Mean Corpuscular Hemoglobin Concent 32.4, Red Cell Distribution Width 12.3, Platelet Count 357, Mean Platelet Volume 4.9L, Neutrophils (%) (Auto) 40.7L, Lymphocytes (%) (Auto) 43.5, Monocytes (%) (Auto) 10.6H, Eosinophils (%) (Auto) 4.0H, Basophils (%) (Auto) 1.2, Sodium Level 141, Potassium Level 4.2, Chloride Level 105, Carbon Dioxide Level 28, Anion Gap 8, Blood Urea Nitrogen 16, Creatinine 0.5L, Estimat Glomerular Filtration Rate > 60, Glucose Level 303H, Calcium Level 8.3L Current Medications Medications (Trade) Dose Ordered Sig/Yasemin Route PRN Reason Start Time Stop Time Status Last Admin Dose Admin Acetaminophen (Tylenol) 650 mg Q6H PRN ORAL Mild Pain/Temp > 100.5 11/16/18 17:30 12/15/18 17:29 Acetaminophen/ Hydrocodone Bitart ([place] 5/325) 1 tab Q8H PRN ORAL For pain 7-10 11/18/18 16:45 11/25/18 16:44 11/19/18 08:41 Dextrose (Dextrose 50%) 25 ml Q30M PRN IV Hypoglycemia 11/17/18 06:30 12/17/18 06:29 Dextrose (Dextrose 50%) 50 ml Q30M PRN IV Hypoglycemia 11/17/18 06:30 12/17/18 06:29 Docusate Sodium (Colace) 100 mg TWICE A DAY ORAL 11/17/18 09:00 12/17/18 08:59 11/19/18 08:41 Heparin Sodium (Porcine) (Heparin 5000 units/ml) 5,000 units EVERY 12 HOURS SUBQ 11/16/18 21:00 12/16/18 08:59 11/19/18 08:43 Insulin Aspart (NovoLOG) BEFORE MEALS AND HS SUBQ 11/16/18 21:00 12/16/18 06:29 11/19/18 12:10 Insulin Aspart (NovoLOG) 8 units NOVOTIAC SUBQ 11/17/18 06:30 12/16/18 06:29 11/19/18 12:08 Insulin Detemir (Levemir) 16 units BID SUBQ 11/19/18 09:00 12/17/18 08:59 11/19/18 08:59 Ondansetron HCl (Zofran) 4 mg Q6H PRN IVP Nausea & Vomiting 11/16/18 17:30 12/15/18 17:29 Pantoprazole (Protonix) 40 mg DAILY ORAL 11/16/18 19:45 12/16/18 19:44 11/19/18 08:39 Solomon Lanier MD Nov 19, 2018 15:14
[2018-11-19 16:00] VITALS: BP 103/68
--- NOTE | 2018-11-19 17:14 | General Progress Note ---
Assessment/Plan Status: stable, progressing Assessment/Plan: (1) Electrolyte abnormality ICD Codes: E87.8 - Other disorders of electrolyte and fluid balance, not elsewhere classified SNOMED: 191290465 (2) Nausea & vomiting ICD Codes: R11.2 - Nausea with vomiting, unspecified SNOMED: 71320759 (3) Abdominal pain, LUQ ICD Codes: R10.9 - Unspecified abdominal pain SNOMED: 20318579 (4) Diabetes mellitus with ketoacidosis ICD Codes: E11.10 - Type 2 diabetes mellitus with ketoacidosis without coma SNOMED: 32072141, 089432209 (5) Hyperglycemia ICD Codes: R73.9 - Hyperglycemia, unspecified SNOMED: 94706059 Status: stable Assessment/Plan nausea 2/2 to DKA zofran prn advance diet DM management prn transfusions ppi electrolyte correction CT abdomen Subjective Allergies: Coded Allergies: No Known Allergies (Unverified , 11/15/18) Subjective above noted d/w RN c/o 2 mo of LUQ pain Objective Last 24 Hour Vital Signs Date Time Temp Pulse Resp B/P (MAP) Pulse Ox O2 Delivery O2 Flow Rate FiO2 11/19/18 16:00 98.5 80 18 103/68 (80) 99 11/19/18 12:00 97.9 80 20 93/58 (70) 98 11/19/18 09:11 97.3 11/19/18 09:00 Room Air 11/19/18 08:00 97.5 85 20 91/59 (70) 97 11/19/18 04:00 97.3 61 16 108/69 (82) 95 11/19/18 00:00 97.7 90 16 99/61 (74) 97 11/18/18 21:00 Room Air 11/18/18 20:00 98.5 99 16 100/53 (69) 99 Intake and Output 11/18/18 11/19/18 18:59 06:59 Intake Total 1360 ml Output Total 2075 ml Balance -715 ml Intake Oral 1360 ml Output Urine Total 2075 ml # Bowel Movements 3 Laboratory Tests 11/19/18 05:04: White Blood Count 3.7L, Red Blood Count 3.31L, Hemoglobin 11.0L, Hematocrit 33.9L, Mean Corpuscular Volume 102H, Mean Corpuscular Hemoglobin 33.2H, Mean Corpuscular Hemoglobin Concent 32.4, Red Cell Distribution Width 12.3, Platelet Count 357, Mean Platelet Volume 4.9L, Neutrophils (%) (Auto) 40.7L, Lymphocytes (%) (Auto) 43.5, Monocytes (%) (Auto) 10.6H, Eosinophils (%) (Auto) 4.0H, Basophils (%) (Auto) 1.2, Sodium Level 141, Potassium Level 4.2, Chloride Level 105, Carbon Dioxide Level 28, Anion Gap 8, Blood Urea Nitrogen 16, Creatinine 0.5L, Estimat Glomerular Filtration Rate > 60, Glucose Level 303H, Calcium Level 8.3L, Lipase [Pending], HIV (1&2) Antibody Rapid [Pending] Height (Feet): 5 Height (Inches): 5.00 Weight (Pounds): 100 Objective Thin man NCAT supple CTA RR abd soft LUQ TTP no edema Yusra Wan MD Nov 19, 2018 17:14
[2018-11-19 19:01] LABS: APPEARANCE,URINE CLEAR; BILIRUBIN, URINE NEGATIVE (NEGATIVE); COLOR,URINE PALE YELLOW; GLUCOSE, URINE (UA) 4+ (NEGATIVE); KETONES,URINE NEGATIVE (NEGATIVE); LEUKOCYTE ESTERASE ,URINE NEGATIVE (NEGATIVE); NITRITE,URINE NEGATIVE (NEGATIVE); PH,URINE 7 (4.5-8.0); PROTEIN,URINE NEGATIVE (NEGATIVE); UROBILINOGEN,URINE NORMAL MG/DL (0.0-1.0)
--- NOTE | 2018-11-19 19:40 | NUR ---
NURSE NOTES: Received report form Linda ANDERSON and Irais Barba RN. Patient A&Ox4. On room air, no signs of distress or labored breathing. IVs intact, patent, and saline locked. Bed ion lowest position with call light in reach. Will continue with plan of care.
--- NOTE | 2018-11-19 19:42 | NUR ---
HAND-OFF: Report given to JUSTIN Portillo.
[2018-11-19 20:00] VITALS: BP 96/67
[2018-11-20] VITALS (7 sets, daily range): BP systolic 83–131; BP diastolic 52–81
[2018-11-20] MEDS: NovoLOG Insulin Flexpen SUBQ SCH ×7 (06:30→20:50)
--- NOTE | 2018-11-20 07:23 | NUR ---
HAND-OFF: Report given to JUSTIN Mckeon.
--- NOTE | 2018-11-20 07:29 | NUR ---
NURSE NOTES: Received report from JUSTIN Portillo. Pt in bed, resting. Pt complained of abdominal pain, discussed plan of care, no apparent distress noted. Bed in lowest position, call light within reach.
[2018-11-20 07:39] LABS: BASOPHILS % (AUTO) 1.2 % (0.0-2.0); EOSINOPHILS % (AUTO) 3.7 % (0.0-3.0); HEMATOCRIT 34.5 % (42.0-52.0); HEMOGLOBIN 11.4 G/DL (14.2-18.0); LYMPHOCYTES % (AUTO) 34.4 % (20.0-45.0); MEAN CORPUSCULAR VOLUME 102 FL (80-99); MONOCYTES % (AUTO) 11.7 % (1.0-10.0); NEUTROPHILS % (AUTO) 49.1 % (45.0-75.0); PLATELET COUNT 399 K/UL (150-450); RED BLOOD COUNT 3.38 M/UL (4.70-6.10); RED CELL DISTRIBUTION WIDTH 11.9 % (11.6-14.8); WHITE BLOOD COUNT 3.9 K/UL (4.8-10.8)
[2018-11-20 07:46] LABS: ANION GAP 6 mmol/L (5-15); BLOOD UREA NITROGEN 18 mg/dL (7-18); CALCIUM 8.6 MG/DL (8.5-10.1); CARBON DIOXIDE 29 MMOL/L (21-32); CHLORIDE 103 MMOL/L (98-107); CREATININE 0.5 MG/DL (0.55-1.30); POTASSIUM 4.4 MMOL/L (3.5-5.1); SODIUM 138 MMOL/L (136-145)
[2018-11-20] MEDS: Heparin 5000 units/ml inj SUBQ SCH ×2 (08:40→20:44)
[2018-11-20] MEDS: Docusate 100mg cap ORAL SCH ×2 (08:45→17:10)
[2018-11-20] MEDS: Levemir Flexpen SUBQ SCH ×2 (08:45→17:14)
--- NOTE | 2018-11-20 08:52 | NUR ---
NURSE NOTES: Pt was given a bolus dose of NS 500 mL at 0730 per MD's order, due to his BP running low (83/52). After the NS administration, his BP went up to 90/58. Pt was also given only half dose of Levemir (8 units of 16 units) due to him being on NPO for abdominal US and CT.
--- NOTE | 2018-11-20 09:58 | Diagnostic Imaging Report ---
EXAM: CT Abdomen and Pelvis Without Intravenous Contrast CLINICAL HISTORY: ABD PAIN TECHNIQUE: Axial computed tomography images of the abdomen and pelvis without intravenous contrast. CTDI is 9.03 mGy and DLP is 457 mGy-cm. One or more of the following dose reduction techniques were used: automated exposure control, adjustment of the mA and/or kV according to patient size, use of iterative reconstruction technique. COMPARISON: No relevant prior studies available. FINDINGS: Lung bases: See below. Pleural space: Query tiny bilateral pleural effusions bibasilar atelectasis/lung airspace disease. Trace pericardial fluid. ABDOMEN: Liver: Unremarkable. Gallbladder and bile ducts: Unremarkable. No calcified stones. No ductal dilation. Pancreas: Unremarkable. No ductal dilation. Spleen: Unremarkable. No splenomegaly. Adrenals: Unremarkable. No mass. Kidneys and ureters: Unremarkable. No obstructing stones. No hydronephrosis. Stomach and bowel: Moderate stool in colon. Mild fecal distended distal small bowel may be chronic stasis. No bowel obstruction. No mucosal thickening. PELVIS: Appendix: Normal appendix. Bladder: Mild thickening of the urinary bladder. No stones. Reproductive: Unremarkable as visualized. ABDOMEN and PELVIS: Intraperitoneal space: Unremarkable. No free air. No significant fluid collection. Bones/joints: Partial sacralization bilateral L5. No acute fracture. No dislocation. Soft tissues: Mild anasarca. Small bilateral fat-containing inguinal hernias. Vasculature: Unremarkable. No abdominal aortic aneurysm. Lymph nodes: Unremarkable. No enlarged lymph nodes. IMPRESSION: 1. Query tiny bilateral pleural effusions bibasilar atelectasis/lung airspace disease. Trace pericardial fluid. 2. Mild anasarca. 3. Moderate stool in colon. Mild fecal distended distal small bowel may be chronic stasis. No bowel obstruction. 4. Mild thickening of the urinary bladder. 5. Normal appendix.
--- NOTE | 2018-11-20 10:28 | General Progress Note ---
Assessment/Plan Problem List: (1) Diabetes mellitus with ketoacidosis ICD Codes: E11.10 - Type 2 diabetes mellitus with ketoacidosis without coma SNOMED: 97137502, 997782108 (2) Hyperglycemia ICD Codes: R73.9 - Hyperglycemia, unspecified SNOMED: 35997909 (3) Abdominal pain ICD Codes: R10.9 - Unspecified abdominal pain SNOMED: 96979665 (4) Nausea & vomiting ICD Codes: R11.2 - Nausea with vomiting, unspecified SNOMED: 90202313 (5) Electrolyte abnormality ICD Codes: E87.8 - Other disorders of electrolyte and fluid balance, not elsewhere classified SNOMED: 954030326 Status: stable, progressing Assessment/Plan: diet f/u bs control cbc bmp am Subjective Constitutional: Reports: weakness Allergies: Coded Allergies: No Known Allergies (Unverified , 11/15/18) All Systems: reviewed and negative except above Subjective calm in bed Objective Last 24 Hour Vital Signs Date Time Temp Pulse Resp B/P (MAP) Pulse Ox O2 Delivery O2 Flow Rate FiO2 11/20/18 08:30 68 90/58 (69) 11/20/18 07:50 97.9 75 18 83/52 (62) 98 11/20/18 07:38 Room Air 11/20/18 04:00 98.1 79 18 88/53 (65) 96 11/20/18 00:00 98.0 74 18 89/55 (66) 96 11/19/18 21:00 Room Air 11/19/18 20:00 96.9 84 18 96/67 (77) 96 11/19/18 16:00 98.5 80 18 103/68 (80) 99 11/19/18 12:00 97.9 80 20 93/58 (70) 98 Intake and Output 11/19/18 11/20/18 19:00 07:00 Intake Total 1000 ml Output Total 2905 ml 400 ml Balance -1905 ml -400 ml Intake Oral 1000 ml Output Urine Total 2905 ml 400 ml # Bowel Movements 1 Laboratory Tests 11/19/18 18:40: Urine Color Pale yellow, Urine Appearance Clear, Urine pH 7, Urine Specific [place] 1.010, Urine Protein Negative, Urine Glucose (UA) 4+H, Urine Ketones Negative, Urine Blood Negative, Urine Nitrite Negative, Urine Bilirubin Negative , Urine Urobilinogen Normal, Urine Leukocyte Esterase Negative, Urine RBC 0, Urine WBC 0, Urine Squamous Epithelial Cells None, Urine Bacteria None 11/20/18 06:50: White Blood Count 3.9L, Red Blood Count 3.38L, Hemoglobin 11.4L, Hematocrit 34.5L, Mean Corpuscular Volume 102H, Mean Corpuscular Hemoglobin 33.9H, Mean Corpuscular Hemoglobin Concent 33.1, Red Cell Distribution Width 11.9, Platelet Count 399, Mean Platelet Volume 4.7L, Neutrophils (%) (Auto) 49.1, Lymphocytes ( %) (Auto) 34.4, Monocytes (%) (Auto) 11.7H, Eosinophils (%) (Auto) 3.7H, Basophils (%) (Auto) 1.2, Sodium Level 138, Potassium Level 4.4, Chloride Level 103, Carbon Dioxide Level 29, Anion Gap 6, Blood Urea Nitrogen 18, Creatinine 0.5L, Estimat Glomerular Filtration Rate > 60, Glucose Level 311H, Calcium Level 8.6 Height (Feet): 5 Height (Inches): 5.00 Weight (Pounds): 100 General Appearance: lethargic EENT: normal ENT inspection Neck: normal alignment Cardiovascular: normal peripheral pulses, normal rate, regular rhythm Respiratory/Chest: chest wall non-tender, lungs clear, normal breath sounds Abdomen: normal bowel sounds, non tender, soft Extremities: normal inspection Edema: no edema noted Arm (L), no edema noted Arm (R), no edema noted Leg (L), no edema noted Leg (R), no edema noted Pedal (L), no edema noted Pedal (R), no edema noted Generalized Neurologic: motor weakness Skin: normal pigmentation, warm/dry Hussein Hewitt DO Nov 20, 2018 10:28
--- NOTE | 2018-11-20 11:00 | NUR ---
NURSE NOTES: Notified Dr. Lanier regarding 500 cc bolus NS given at 0730 and BP after bolus 90/58 HR 68. Pt trends SBP in low 90' to low 100's. Dr. Lanier ordered 500 cc NS to be given over 4 hours
--- NOTE | 2018-11-20 11:37 | NUR ---
NURSE NOTES: Pt BS 421, RN left message for Dr. Rivera. Order for SSI 16 units Novolog and standing order 8 units Novolog will be given Addendum: 11/20/18 at 1200 by CAYDEN NELSON RN NURSE NOTES: RN spoke with Dr. Rivera, no new orders given.
[2018-11-20] MEDS: HYDROcodone/Acetamin 5/325 tab ORAL PRN ×2 (11:46→20:44)
--- NOTE | 2018-11-20 16:45 | Consultation ---
DATE OF CONSULTATION: 11/20/2018 INFECTIOUS DISEASES CONSULTATION CONSULTING PHYSICIAN: Sang Wright M.D. PRIMARY ATTENDING PHYSICIAN: Klever Vee M.D. REASON FOR CONSULTATION: Nausea, vomiting, abdominal pain, and history of fungal infection. HISTORY OF PRESENT ILLNESS: The patient is a 43-year-old male admitted on 11/15/2018 complaining of nausea, abdominal pain, fatigue. At the time of admission, the patient's glucose was 903, noncompliance with medications, did not get insulin for couple of days, was diagnosed with diabetic ketoacidosis that was mild and resolved. The patient states that he has had similar symptoms in the past and had a visit to [facility] seven months ago. They find fungal infection and the patient was receiving some kind of antifungal treatment twice a day for one month. The patient failed to follow up there. PAST MEDICAL HISTORY: Significant for diabetes mellitus type 2 for 12 years, non-insulin, history of foot fractures, left foot fracture surgery. ALLERGIES: No known drug allergies. MEDICATIONS: Sodium chloride, Levemir insulin, [place], Colace, heparin, Protonix, Tylenol, Zofran. SOCIAL HISTORY: Originally from [place], has history of cocaine abuse in the past, history of alcohol abuse in the past. Smoker, three cigarettes in a week. , has 6 children but the children live with mother and he is homeless. REVIEW OF SYSTEMS: Has significant weight loss in the past couple of months about 80 pounds, nausea, nonproductive cough, shoulder pain after coughing, epigastric pain. No problem passing urine. FAMILY HISTORY: The patient has a strong family history of diabetes mellitus in four brothers and mother who because of diabetes. PHYSICAL EXAMINATION: VITAL SIGNS: Temperature 97.9, pulse 60, blood pressure 131/60. GENERAL APPEARANCE: Thin and cachectic. HEAD AND NECK: [place] conjunctivae. No oral lesion. HEART: S1 and S2 regular. LUNGS: Clear. ABDOMEN: Soft, scaphoid. EXTREMITIES: No edema, muscle atrophy. NEUROLOGIC: Awake, alert, oriented. LABORATORY AND DIAGNOSTIC DATA: WBC 3.9, hemoglobin 11.4, hematocrit 34.5, platelets 399. Sodium 138, potassium 4.4, chloride 103, bicarbonate 29, , creatinine 0.5, and glucose is 311. Hemoglobin A1c at the time of admission was 13.1. Alkaline phosphatase is 282. Albumin is 2. The patient has a CT scan of the abdomen and pelvis that showed bilateral pleural effusion, atelectasis, mild anasarca, moderate stool in the colon , mild thickening of urinary bladder, normal appendix. Chest x-ray was negative. Venous duplex, no DVT bilaterally. Urine culture no growth. VRE and MRSA screening tests are negative. HIV test is negative. IMPRESSION: Chronic abdominal pain associated with nausea vomiting. The patient states that he has history of some kind of fungal infection, has diabetes mellitus with diabetes ketoacidosis, still diabetes is not controlled and the patient is hyperglycemic. The patient has cachexia, severe protein malnutrition, significant weight loss, homeless, history of polysubstance abuse, leukopenia that is mild. RECOMMENDATION: The patient agreed to sign a release form information from [facility]. We will try to obtain previous diagnosis and treatment for abdominal pain including EGD. We will observe off antibiotics for now. At the end of my exam, I thank Dr. Vee, for involving me in the care of this patient. Sang Wright M.D. DR: Ricarda JOB#: [id number] CC: JANAE
--- NOTE | 2018-11-20 19:06 | Pulmonology Progress Note ---
Assessment/Plan Assessment/Plan Pulmonary Progress Note HPI Patient is a 43-year old man with history of Insulin Dependent Diabetes Mellitus who presents with DKA, c/o abdominal pain, nausea fatigue and elevated glucose readings. He has not had insulin in 2 months. He is also complaining of left ankle pain. He denies recent illness such as fever, chills, nasal congestion, sore throat. He does note a nonproductive cough. Denies any diarrhea, dysuria. Denies injury. No new complaints PMH: Insulin Dependent Diabetes Mellitus Physical Exam Vital Signs Noted General: Awake and alert, comfortable HEENT: NC/AT. EOMI. dry mucous membranes Cardiovascular: Tachycardic. S1 and S2 normal. No murmur appreciated Resp: Normal work of breathing. No cough, wheezing or crackles appreciated Abdomen: Abdomen is soft, nondistended. Somel tenderness palpation in the epigastrium. No masses. No guarding Skin: Intact. No abrasions, laceration or rash over the exposed skin MSK: Palpation of the anterior and posterior element of the medial malleolus of the left ankle. Some edema. Neuro: Awake and alert. Mentating appropriately. Impression: Insulin Dependent Diabetes Mellitus DKA, Hyperglycemia Ankle pain Plan: IVF Insulin gtt in ED - subsequently SQ Insulin - Lantus and ISS CXR negative for infiltrate Monitor labs PPX Test 11/15/18 18:12 11/15/18 18:20 11/15/18 19:06 White Blood Count 5.5 K/UL (4.8-10.8) Red Blood Count 3.48 M/UL (4.70-6.10) L Hemoglobin 11.8 G/DL (14.2-18.0) L Hematocrit 33.9 % (42.0-52.0) L Mean Corpuscular Volume 97 FL (80-99) Mean Corpuscular Hemoglobin 34.0 PG (27.0-31.0) H Mean Corpuscular Hemoglobin Concent 34.9 G/DL (32.0-36.0) Red Cell Distribution Width 11.8 % (11.6-14.8) Platelet Count 390 K/UL (150-450) Mean Platelet Volume 4.4 FL (6.5-10.1) L Neutrophils (%) (Auto) 71.1 % (45.0-75.0) Lymphocytes (%) (Auto) 16.8 % (20.0-45.0) L Monocytes (%) (Auto) 10.3 % (1.0-10.0) H Eosinophils (%) (Auto) 0.8 % (0.0-3.0) Basophils (%) (Auto) 1.0 % (0.0-2.0) Sodium Level 129 MMOL/L (136-145) L Potassium Level 3.7 MMOL/L (3.5-5.1) Chloride Level 92 MMOL/L (98-107) L Carbon Dioxide Level 18 MMOL/L (21-32) L Anion Gap 19 mmol/L (5-15) H Blood Urea Nitrogen 10 mg/dL (7-18) Creatinine 0.8 MG/DL (0.55-1.30) Estimate Glomerular Filtration Rate > 60 mL/min (>60) Glucose Level 903 MG/DL (74-106) *H Calcium Level 8.5 MG/DL (8.5-10.1) Magnesium Level 2.0 MG/DL (1.8-2.4) Total Bilirubin 0.4 MG/DL (0.2-1.0) Aspartate Amino Transferase (AST) 16 U/L (15-37) Alanine Aminotransferase (ALT) 15 U/L (12-78) Alkaline Phosphatase 416 U/L (46-116) H Total Protein 6.9 G/DL (6.4-8.2) Albumin 2.7 G/DL (3.4-5.0) L Globulin 4.2 g/dL Albumin/Globulin Ratio 0.6 (1.0-2.7) L Acetone Level Positive-small (NEGATIVE) Arterial Blood pH 7.317 (7.350-7.450) Arterial Blood Partial Pressure CO2 30.0 mmHg (35.0-45.0) L Arterial Blood Partial Pressure O2 100.4 mmHg (75.0-100.0) H Arterial Blood HCO3 15.0 mmol/L (22.0-26.0) *L Arterial Blood Oxygen Saturation 96.5 % (95-100) Arterial Blood Base Excess -10.0 (-2-2) *L [place] Test Positive Urine Color Pale yellow Urine Appearance Clear Urine pH 6 (4.5-8.0) Urine Specific [place] 1.005 (1.005-1.035) Urine Protein Negative (NEGATIVE) Urine Glucose (UA) 4+ (NEGATIVE) H Urine Ketones 3+ (NEGATIVE) H Urine Blood Negative (NEGATIVE) Urine Nitrite Negative (NEGATIVE) Urine Bilirubin Negative (NEGATIVE) Urine Urobilinogen Normal MG/DL (0.0-1.0) Urine Leukocyte Esterase Negative (NEGATIVE) EKG: Rate: normal Rhythm: NSR, no acute changes. Normal intervals. No ischemic changes. Chest X-Ray no consolidation, no effusion, no pneumothorax X-rays of the foot: previous hardware but does not obviously show periprosthetic fracture. He will be admitted for further monitoring. Subjective ROS Limited/Unobtainable: No Allergies: Coded Allergies: No Known Allergies (Unverified , 11/15/18) Objective Last 24 Hour Vital Signs Date Time Temp Pulse Resp B/P (MAP) Pulse Ox O2 Delivery O2 Flow Rate FiO2 11/20/18 16:00 97.9 85 18 115/81 (92) 96 11/20/18 12:16 97.9 11/20/18 12:00 97.9 60 19 131/60 (83) 98 11/20/18 08:30 68 90/58 (69) 11/20/18 07:50 97.9 75 18 83/52 (62) 98 11/20/18 07:38 Room Air 11/20/18 04:00 98.1 79 18 88/53 (65) 96 11/20/18 00:00 98.0 74 18 89/55 (66) 96 11/19/18 21:00 Room Air 11/19/18 20:00 96.9 84 18 96/67 (77) 96 Intake and Output 11/19/18 11/20/18 18:59 06:59 Intake Total 1000 ml Output Total 2905 ml 400 ml Balance -1905 ml -400 ml Intake Oral 1000 ml Output Urine Total 2905 ml 400 ml # Bowel Movements 1 Microbiology Date/Time Source Procedure Growth Status 11/19/18 18:40 Urine,Clean Catch Urine Culture - Preliminary NO GROWTH Resulted Laboratory Tests 11/20/18 06:50: White Blood Count 3.9L, Red Blood Count 3.38L, Hemoglobin 11.4L, Hematocrit 34.5L, Mean Corpuscular Volume 102H, Mean Corpuscular Hemoglobin 33.9H, Mean Corpuscular Hemoglobin Concent 33.1, Red Cell Distribution Width 11.9, Platelet Count 399, Mean Platelet Volume 4.7L, Neutrophils (%) (Auto) 49.1, Lymphocytes ( %) (Auto) 34.4, Monocytes (%) (Auto) 11.7H, Eosinophils (%) (Auto) 3.7H, Basophils (%) (Auto) 1.2, Sodium Level 138, Potassium Level 4.4, Chloride Level 103, Carbon Dioxide Level 29, Anion Gap 6, Blood Urea Nitrogen 18, Creatinine 0.5L, Estimat Glomerular Filtration Rate > 60, Glucose Level 311H, Calcium Level 8.6 Current Medications Medications (Trade) Dose Ordered Sig/Yasemin Route PRN Reason Start Time Stop Time Status Last Admin Dose Admin Acetaminophen (Tylenol) 650 mg Q6H PRN ORAL Mild Pain/Temp > 100.5 11/16/18 17:30 12/15/18 17:29 Acetaminophen/ Hydrocodone Bitart ([place] 5/325) 1 tab Q8H PRN ORAL For pain 7-10 11/18/18 16:45 11/25/18 16:44 11/20/18 11:46 Barium Sulfate (Readi-Cat 2) 450 ml NOW PRN ORAL Radiology Procedure 11/19/18 17:15 11/21/18 17:14 Dextrose (Dextrose 50%) 25 ml Q30M PRN IV Hypoglycemia 11/17/18 06:30 12/17/18 06:29 Dextrose (Dextrose 50%) 50 ml Q30M PRN IV Hypoglycemia 11/17/18 06:30 12/17/18 06:29 Docusate Sodium (Colace) 100 mg TWICE A DAY ORAL 11/17/18 09:00 12/17/18 08:59 11/20/18 17:10 Heparin Sodium (Porcine) (Heparin 5000 units/ml) 5,000 units EVERY 12 HOURS SUBQ 11/16/18 21:00 12/16/18 08:59 11/20/18 08:40 Insulin Aspart (NovoLOG) BEFORE MEALS AND HS SUBQ 11/16/18 21:00 12/16/18 06:29 11/20/18 17:16 Insulin Aspart (NovoLOG) 8 units NOVOTIAC SUBQ 11/17/18 06:30 12/16/18 06:29 11/20/18 17:15 Insulin Detemir (Levemir) 16 units BID SUBQ 11/19/18 09:00 12/17/18 08:59 11/20/18 17:14 Ondansetron HCl (Zofran) 4 mg Q6H PRN IVP Nausea & Vomiting 11/16/18 17:30 12/15/18 17:29 Pantoprazole (Protonix) 40 mg DAILY ORAL 11/16/18 19:45 12/16/18 19:44 11/19/18 08:39 Solomon Lanier MD Nov 20, 2018 19:06
--- NOTE | 2018-11-20 19:28 | NUR ---
HAND-OFF: Report given to JUSTIN Schumacher.
--- NOTE | 2018-11-20 19:30 | NUR ---
NURSE NOTES: Patient awake in bed, not in acute respiratory distress. Instructed to use call light for assistance. Instructed to NPO at midnight. Patient verbalized understanding. Bed in lowest and lock engaged. Will continue to monitor.
--- NOTE | 2018-11-20 19:40 | General Progress Note ---
Assessment/Plan Status: stable, progressing Assessment/Plan: Assessment (1) Electrolyte abnormality ICD Codes: E87.8 - Other disorders of electrolyte and fluid balance, not elsewhere classified SNOMED: 166189917 (2) Nausea & vomiting ICD Codes: R11.2 - Nausea with vomiting, unspecified SNOMED: 03823388 (3) Abdominal pain, LUQ - ? fecal loading ICD Codes: R10.9 - Unspecified abdominal pain SNOMED: 83416987 (4) Diabetes mellitus with ketoacidosis ICD Codes: E11.10 - Type 2 diabetes mellitus with ketoacidosis without coma SNOMED: 48337954, 927878219 (5) Hyperglycemia ICD Codes: R73.9 - Hyperglycemia, unspecified SNOMED: 34214011 Status: stable Assessment/Plan nausea 2/2 to DKA zofran prn advance diet DM management prn transfusions ppi electrolyte correction laxative trial Subjective Allergies: Coded Allergies: No Known Allergies (Unverified , 11/15/18) Subjective above noted still with LUQ pain CT noted --> fecal loading Objective Last 24 Hour Vital Signs Date Time Temp Pulse Resp B/P (MAP) Pulse Ox O2 Delivery O2 Flow Rate FiO2 11/20/18 16:00 97.9 85 18 115/81 (92) 96 11/20/18 12:16 97.9 11/20/18 12:00 97.9 60 19 131/60 (83) 98 11/20/18 08:30 68 90/58 (69) 11/20/18 07:50 97.9 75 18 83/52 (62) 98 11/20/18 07:38 Room Air 11/20/18 04:00 98.1 79 18 88/53 (65) 96 11/20/18 00:00 98.0 74 18 89/55 (66) 96 11/19/18 21:00 Room Air 11/19/18 20:00 96.9 84 18 96/67 (77) 96 Intake and Output 11/19/18 11/20/18 18:59 06:59 Intake Total 1000 ml Output Total 2905 ml 400 ml Balance -1905 ml -400 ml Intake Oral 1000 ml Output Urine Total 2905 ml 400 ml # Bowel Movements 1 Laboratory Tests 11/20/18 06:50: White Blood Count 3.9L, Red Blood Count 3.38L, Hemoglobin 11.4L, Hematocrit 34.5L, Mean Corpuscular Volume 102H, Mean Corpuscular Hemoglobin 33.9H, Mean Corpuscular Hemoglobin Concent 33.1, Red Cell Distribution Width 11.9, Platelet Count 399, Mean Platelet Volume 4.7L, Neutrophils (%) (Auto) 49.1, Lymphocytes ( %) (Auto) 34.4, Monocytes (%) (Auto) 11.7H, Eosinophils (%) (Auto) 3.7H, Basophils (%) (Auto) 1.2, Sodium Level 138, Potassium Level 4.4, Chloride Level 103, Carbon Dioxide Level 29, Anion Gap 6, Blood Urea Nitrogen 18, Creatinine 0.5L, Estimat Glomerular Filtration Rate > 60, Glucose Level 311H, Calcium Level 8.6 Height (Feet): 5 Height (Inches): 5.00 Weight (Pounds): 100 Objective Thin man NCAT supple CTA RR abd soft LUQ TTP no edema Yusra Wan MD Nov 20, 2018 19:40
[2018-11-20] MEDS ORDERED: Sorbitol Solution UD 30ml ORAL SCH (19:45)
--- NOTE | 2018-11-20 23:55 | NUR ---
NURSE NOTES: Patient noted to have cold and clammy skin. Blood sugar was checked and got 84. Patient asked for small amount of snack before NPO post midnight.
[2018-11-21] VITALS: BP 99/54
[2018-11-21 04:00] VITALS: BP 99/66
[2018-11-21] MEDS: NovoLOG Insulin Flexpen SUBQ SCH ×7 (06:20→21:01)
--- NOTE | 2018-11-21 06:37 | General Progress Note ---
Assessment/Plan Problem List: (1) Diabetes mellitus with ketoacidosis ICD Codes: E11.10 - Type 2 diabetes mellitus with ketoacidosis without coma SNOMED: 79735817, 234469651 (2) Hyperglycemia ICD Codes: R73.9 - Hyperglycemia, unspecified SNOMED: 79633055 (3) Abdominal pain ICD Codes: R10.9 - Unspecified abdominal pain SNOMED: 61787989 (4) Nausea & vomiting ICD Codes: R11.2 - Nausea with vomiting, unspecified SNOMED: 17692938 Status: stable, progressing Assessment/Plan: continue Levemir 16 units bid continue Novolog 8 units ac tid continue NISS ac / hs Subjective Allergies: Coded Allergies: No Known Allergies (Unverified , 11/15/18) Subjective events noted glucose elevated yesterday after he missed a dose of Novolog - this morning improved he is NPO Item Value Date Time Bedside Blood Glucose 197 mg/dl H 11/21/18 0620 Bedside Blood Glucose 84 mg/dl 11/21/18 0000 Bedside Blood Glucose 239 mg/dl H 11/20/18 2100 Bedside Blood Glucose 224 mg/dl H 11/20/18 1716 Bedside Blood Glucose 421 mg/dl H 11/20/18 1152 Bedside Blood Glucose 290 mg/dl H 11/20/18 0845 Bedside Blood Glucose 270 mg/dl H 11/20/18 0640 Objective Last 24 Hour Vital Signs Date Time Temp Pulse Resp B/P (MAP) Pulse Ox O2 Delivery O2 Flow Rate FiO2 11/21/18 04:00 97.7 79 18 99/66 (77) 97 11/21/18 00:00 97.9 84 20 99/54 (69) 98 11/20/18 21:00 Room Air 11/20/18 20:00 99.0 89 20 100/60 (73) 96 11/20/18 16:00 97.9 85 18 115/81 (92) 96 11/20/18 12:16 97.9 11/20/18 12:00 97.9 60 19 131/60 (83) 98 11/20/18 08:30 68 90/58 (69) 11/20/18 07:50 97.9 75 18 83/52 (62) 98 11/20/18 07:38 Room Air Intake and Output 11/20/18 11/21/18 19:00 07:00 Intake Total 2200 ml Output Total 1100 ml 400 ml Balance 1100 ml -400 ml Intake Oral 1200 ml IV Total 1000 ml Output Urine Total 1100 ml 400 ml # Bowel Movements 1 Laboratory Tests 11/20/18 06:50: White Blood Count 3.9L, Red Blood Count 3.38L, Hemoglobin 11.4L, Hematocrit 34.5L, Mean Corpuscular Volume 102H, Mean Corpuscular Hemoglobin 33.9H, Mean Corpuscular Hemoglobin Concent 33.1, Red Cell Distribution Width 11.9, Platelet Count 399, Mean Platelet Volume 4.7L, Neutrophils (%) (Auto) 49.1, Lymphocytes ( %) (Auto) 34.4, Monocytes (%) (Auto) 11.7H, Eosinophils (%) (Auto) 3.7H, Basophils (%) (Auto) 1.2, Sodium Level 138, Potassium Level 4.4, Chloride Level 103, Carbon Dioxide Level 29, Anion Gap 6, Blood Urea Nitrogen 18, Creatinine 0.5L, Estimat Glomerular Filtration Rate > 60, Glucose Level 311H, Calcium Level 8.6 Height (Feet): 5 Height (Inches): 5.00 Weight (Pounds): 99 General Appearance: no apparent distress Neck: normal alignment Cardiovascular: normal rate Respiratory/Chest: lungs clear Abdomen: normal bowel sounds Objective Current Medications Medications (Trade) Dose Ordered Sig/Yasemin Route PRN Reason Start Time Stop Time Status Last Admin Dose Admin Acetaminophen (Tylenol) 650 mg Q6H PRN ORAL Mild Pain/Temp > 100.5 11/16/18 17:30 12/15/18 17:29 Acetaminophen/ Hydrocodone Bitart ([place] 5/325) 1 tab Q8H PRN ORAL For pain 7-10 11/18/18 16:45 11/25/18 16:44 11/20/18 20:44 Barium Sulfate (Readi-Cat 2) 450 ml NOW PRN ORAL Radiology Procedure 11/19/18 17:15 11/21/18 17:14 Dextrose (Dextrose 50%) 25 ml Q30M PRN IV Hypoglycemia 11/17/18 06:30 12/17/18 06:29 Dextrose (Dextrose 50%) 50 ml Q30M PRN IV Hypoglycemia 11/17/18 06:30 12/17/18 06:29 Docusate Sodium (Colace) 100 mg TWICE A DAY ORAL 11/17/18 09:00 12/17/18 08:59 11/20/18 17:10 Heparin Sodium (Porcine) (Heparin 5000 units/ml) 5,000 units EVERY 12 HOURS SUBQ 11/16/18 21:00 12/16/18 08:59 11/20/18 20:44 Insulin Aspart (NovoLOG) BEFORE MEALS AND HS SUBQ 11/16/18 21:00 12/16/18 06:29 11/21/18 06:20 Insulin Aspart (NovoLOG) 8 units NOVOTIAC SUBQ 11/17/18 06:30 12/16/18 06:29 11/20/18 17:15 Insulin Detemir (Levemir) 16 units BID SUBQ 11/19/18 09:00 12/17/18 08:59 11/20/18 17:14 Ondansetron HCl (Zofran) 4 mg Q6H PRN IVP Nausea & Vomiting 11/16/18 17:30 12/15/18 17:29 Pantoprazole (Protonix) 40 mg DAILY ORAL 11/16/18 19:45 12/16/18 19:44 11/19/18 08:39 Merrick Rivera MD Nov 21, 2018 06:37
--- NOTE | 2018-11-21 06:52 | NUR ---
NURSE NOTES: Didn't give patient scheduled Novolog AM dose per protocol bc pt is on NPO. Charge nurse Naz made aware.
--- NOTE | 2018-11-21 07:52 | NUR ---
HAND-OFF: Report given to JUSTIN Felton. Addendum: 11/21/18 at 9652 by ALEX SAEZ RN also to follow up necessary info from Annita.
[2018-11-21 08:00] VITALS: BP 81/53
[2018-11-21 08:31] LABS: HEMATOCRIT 33.4 % (42.0-52.0); HEMOGLOBIN 11.1 G/DL (14.2-18.0); MEAN CORPUSCULAR VOLUME 102 FL (80-99); PLATELET COUNT 396 K/UL (150-450); RED BLOOD COUNT 3.26 M/UL (4.70-6.10); RED CELL DISTRIBUTION WIDTH 12.1 % (11.6-14.8); WHITE BLOOD COUNT 3.4 K/UL (4.8-10.8)
[2018-11-21] MEDS: Levemir Flexpen SUBQ SCH ×2 (09:00→18:32)
[2018-11-21 09:08] LABS: ANION GAP 10 mmol/L (5-15); BLOOD UREA NITROGEN 13 mg/dL (7-18); CALCIUM 8.3 MG/DL (8.5-10.1); CARBON DIOXIDE 25 MMOL/L (21-32); CHLORIDE 105 MMOL/L (98-107); CREATININE 0.4 MG/DL (0.55-1.30); POTASSIUM 3.8 MMOL/L (3.5-5.1); SODIUM 140 MMOL/L (136-145)
[2018-11-21] MEDS: Heparin 5000 units/ml inj SUBQ SCH ×2 (09:25→21:02)
[2018-11-21] MEDS: Docusate 100mg cap ORAL SCH ×3 (09:26→18:30)
--- NOTE | 2018-11-21 09:42 | Nephrology Progress Note ---
Assessment/Plan Problem List: (1) Hyperglycemia (2) Electrolyte abnormality Assessment Hyperglycemia - admitted with BS over 900 Electrolyte abnormality IDDM Plan start Midodrine- stable from renal stand Per Endo ELectrolyte supplement as needed per orders Subjective ROS Limited/Unobtainable: No Constitutional: Reports: malaise Objective Objective Last 24 Hour Vital Signs Date Time Temp Pulse Resp B/P (MAP) Pulse Ox O2 Delivery O2 Flow Rate FiO2 11/21/18 08:00 98.6 79 16 81/53 (62) 97 11/21/18 04:00 97.7 79 18 99/66 (77) 97 11/21/18 00:00 97.9 84 20 99/54 (69) 98 11/20/18 21:00 Room Air 11/20/18 20:00 99.0 89 20 100/60 (73) 96 11/20/18 16:00 97.9 85 18 115/81 (92) 96 11/20/18 12:16 97.9 11/20/18 12:00 97.9 60 19 131/60 (83) 98 Intake and Output 11/20/18 11/21/18 19:00 07:00 Intake Total 2200 ml Output Total 1100 ml 400 ml Balance 1100 ml -400 ml Intake Oral 1200 ml IV Total 1000 ml Output Urine Total 1100 ml 400 ml # Bowel Movements 1 Laboratory Tests 11/21/18 08:00: White Blood Count 3.4L, Red Blood Count 3.26L, Hemoglobin 11.1L, Hematocrit 33.4L, Mean Corpuscular Volume 102H, Mean Corpuscular Hemoglobin 33.9H, Mean Corpuscular Hemoglobin Concent 33.1, Red Cell Distribution Width 12.1, Platelet Count 396, Mean Platelet Volume 5.0L, Neutrophils (%) (Auto) , Lymphocytes (%) ( Auto) , Monocytes (%) (Auto) , Eosinophils (%) (Auto) , Basophils (%) (Auto) , Neutrophils % (Manual) [Pending], Lymphocytes % (Manual) [Pending], Platelet Estimate [Pending], Platelet Morphology [Pending], Sodium Level 140, Potassium Level 3.8, Chloride Level 105, Carbon Dioxide Level 25, Anion Gap 10, Blood Urea Nitrogen 13, Creatinine 0.4L, Estimat Glomerular Filtration Rate > 60, Glucose Level 100#, Calcium Level 8.3L Height (Feet): 5 Height (Inches): 5.00 Weight (Pounds): 99 General Appearance: no apparent distress Objective no change Kj Pimentel MD Nov 21, 2018 09:42
[2018-11-21] MEDS ORDERED: NS 500ML ONE (10:18)
--- NOTE | 2018-11-21 11:32 | NUR ---
NURSE NOTES: HANDOFF RECEIVED FROM JUSTIN JOHNSON. PATIENT RECEIVED RESTING IN BED, PATIENT IS NPO FOR PROCEDURE. PATIENT ABLE TO MAKE NEEDS KNOWN. IV SITE IS CLEAN DRY AND INTACT SALINE LOCKED. CALL LIGHT AT REACH AND BED IN LOW AND LOCKED POSITION. WILL [id number] TO MONITOR.
--- NOTE | 2018-11-21 11:44 | Infectious Diseases Prog Note ---
Assessment/Plan Assessment/Plan IMPRESSION: Chronic abdominal pain associated with nausea vomiting. The history of fungal infection, diabetes mellitus with diabetes ketoacidosis/ uncontrolled DM cachexia, severe protein malnutrition, significant weight loss, homeless, history of polysubstance abuse, leukopenia RECOMMENDATION: We will try to obtain previous diagnosis and treatment from [facility]. We will observe off antibiotics for now. Subjective ROS Limited/Unobtainable: Yes Constitutional: Reports: no symptoms Respiratory: Reports: no symptoms Gastrointestinal/Abdominal: Reports: no symptoms Genitourinary: Reports: no symptoms Allergies: Coded Allergies: No Known Allergies (Unverified , 11/15/18) Objective Vital Signs Last 24 Hour Vital Signs Date Time Temp Pulse Resp B/P (MAP) Pulse Ox O2 Delivery O2 Flow Rate FiO2 11/21/18 08:00 98.6 79 16 81/53 (62) 97 11/21/18 04:00 97.7 79 18 99/66 (77) 97 11/21/18 00:00 97.9 84 20 99/54 (69) 98 11/20/18 21:00 Room Air 11/20/18 20:00 99.0 89 20 100/60 (73) 96 11/20/18 16:00 97.9 85 18 115/81 (92) 96 11/20/18 12:16 97.9 11/20/18 12:00 97.9 60 19 131/60 (83) 98 Height (Feet): 5 Height (Inches): 5.00 Weight (Pounds): 99 General Appearance: no acute distress HEENT: mucous membranes moist Respiratory/Chest: lungs clear Cardiovascular: normal rate Abdomen: soft, non tender Extremities: no edema Neurologic/Psychiatric: alert, oriented x 3, responsive Microbiology Date/Time Source Procedure Growth Status 11/19/18 18:40 Urine,Clean Catch Urine Culture - Preliminary Mixed Gram Positive Organism Resulted Laboratory Tests Test 11/21/18 08:00 White Blood Count 3.4 K/UL (4.8-10.8) L Red Blood Count 3.26 M/UL (4.70-6.10) L Hemoglobin 11.1 G/DL (14.2-18.0) L Hematocrit 33.4 % (42.0-52.0) L Mean Corpuscular Volume 102 FL (80-99) H Mean Corpuscular Hemoglobin 33.9 PG (27.0-31.0) H Mean Corpuscular Hemoglobin Concent 33.1 G/DL (32.0-36.0) Red Cell Distribution Width 12.1 % (11.6-14.8) Platelet Count 396 K/UL (150-450) Mean Platelet Volume 5.0 FL (6.5-10.1) L Neutrophils (%) (Auto) % (45.0-75.0) Lymphocytes (%) (Auto) % (20.0-45.0) Monocytes (%) (Auto) % (1.0-10.0) Eosinophils (%) (Auto) % (0.0-3.0) Basophils (%) (Auto) % (0.0-2.0) Differential Total Cells Counted 100 Neutrophils % (Manual) 53 % (45-75) Lymphocytes % (Manual) 36 % (20-45) Monocytes % (Manual) 8 % (1-10) Eosinophils % (Manual) 3 % (0-3) Basophils % (Manual) 0 % (0-2) Band Neutrophils 0 % (0-8) Platelet Estimate Adequate Platelet Morphology Normal Macrocytosis 1+ Sodium Level 140 MMOL/L (136-145) Potassium Level 3.8 MMOL/L (3.5-5.1) Chloride Level 105 MMOL/L (98-107) Carbon Dioxide Level 25 MMOL/L (21-32) Anion Gap 10 mmol/L (5-15) Blood Urea Nitrogen 13 mg/dL (7-18) Creatinine 0.4 MG/DL (0.55-1.30) L Estimat Glomerular Filtration Rate > 60 mL/min (>60) Glucose Level 100 MG/DL (74-106) # Calcium Level 8.3 MG/DL (8.5-10.1) L Current Medications Medications (Trade) Dose Ordered Sig/Yasemin Route PRN Reason Start Time Stop Time Status Last Admin Dose Admin Acetaminophen (Tylenol) 650 mg Q6H PRN ORAL Mild Pain/Temp > 100.5 11/16/18 17:30 12/15/18 17:29 Acetaminophen/ Hydrocodone Bitart ([place] 5/325) 1 tab Q8H PRN ORAL For pain 7-10 11/18/18 16:45 11/25/18 16:44 11/20/18 20:44 Barium Sulfate (Readi-Cat 2) 450 ml NOW PRN ORAL Radiology Procedure 11/19/18 17:15 11/21/18 17:14 Dextrose (Dextrose 50%) 25 ml Q30M PRN IV Hypoglycemia 11/17/18 06:30 12/17/18 06:29 Dextrose (Dextrose 50%) 50 ml Q30M PRN IV Hypoglycemia 11/17/18 06:30 12/17/18 06:29 Docusate Sodium (Colace) 100 mg TID ORAL 11/21/18 13:00 12/17/18 08:59 Heparin Sodium (Porcine) (Heparin 5000 units/ml) 5,000 units EVERY 12 HOURS SUBQ 11/16/18 21:00 12/16/18 08:59 11/21/18 09:25 Insulin Aspart (NovoLOG) BEFORE MEALS AND HS SUBQ 11/16/18 21:00 12/16/18 06:29 11/21/18 06:20 Insulin Aspart (NovoLOG) 8 units NOVOTIAC SUBQ 11/17/18 06:30 12/16/18 06:29 11/20/18 17:15 Insulin Detemir (Levemir) 16 units BID SUBQ 11/19/18 09:00 12/17/18 08:59 11/20/18 17:14 Midodrine (Pro-Amatine) 2.5 mg THREE TIMES A DAY ORAL 11/21/18 09:45 12/21/18 09:44 Ondansetron HCl (Zofran) 4 mg Q6H PRN IVP Nausea & Vomiting 11/16/18 17:30 12/15/18 17:29 Pantoprazole (Protonix) 40 mg DAILY ORAL 11/16/18 19:45 12/16/18 19:44 11/21/18 09:26 Sang Wright MD Nov 21, 2018 11:44
[2018-11-21 12:00] VITALS: BP 98/59
--- NOTE | 2018-11-21 12:21 | GI Progress Note ---
Assessment/Plan Problems: (1) Electrolyte abnormality ICD Codes: E87.8 - Other disorders of electrolyte and fluid balance, not elsewhere classified SNOMED: 570224463 (2) Nausea & vomiting ICD Codes: R11.2 - Nausea with vomiting, unspecified SNOMED: 62282079 (3) Abdominal pain ICD Codes: R10.9 - Unspecified abdominal pain SNOMED: 74488806 (4) Diabetes mellitus with ketoacidosis ICD Codes: E11.10 - Type 2 diabetes mellitus with ketoacidosis without coma SNOMED: 10851808, 608256110 (5) Hyperglycemia ICD Codes: R73.9 - Hyperglycemia, unspecified SNOMED: 11562600 Status: stable Status Narrative Discussed with Dr. Car. Assessment/Plan nausea 2/2 to DKA zofran prn advance diet DM management prn transfusions ppi electrolyte correction laxative trial The patient was seen and examined at bedside and all new and available data was reviewed in the patients chart. I agree with the above findings, impression and plan. (Patient seen earlier today. Signature stamp does not reflect patient encounter time.). - Surjit Car MD Subjective Gastrointestinal/Abdominal: Reports: no symptoms Objective Last 24 Hour Vital Signs Date Time Temp Pulse Resp B/P (MAP) Pulse Ox O2 Delivery O2 Flow Rate FiO2 11/21/18 09:00 Room Air 11/21/18 08:00 98.6 79 16 81/53 (62) 97 11/21/18 04:00 97.7 79 18 99/66 (77) 97 11/21/18 00:00 97.9 84 20 99/54 (69) 98 11/20/18 21:00 Room Air 11/20/18 20:00 99.0 89 20 100/60 (73) 96 11/20/18 16:00 97.9 85 18 115/81 (92) 96 Intake and Output 11/20/18 11/21/18 19:00 07:00 Intake Total 2200 ml Output Total 1100 ml 400 ml Balance 1100 ml -400 ml Intake Oral 1200 ml IV Total 1000 ml Output Urine Total 1100 ml 400 ml # Bowel Movements 1 Laboratory Tests Test 11/21/18 08:00 White Blood Count 3.4 K/UL (4.8-10.8) L Red Blood Count 3.26 M/UL (4.70-6.10) L Hemoglobin 11.1 G/DL (14.2-18.0) L Hematocrit 33.4 % (42.0-52.0) L Mean Corpuscular Volume 102 FL (80-99) H Mean Corpuscular Hemoglobin 33.9 PG (27.0-31.0) H Mean Corpuscular Hemoglobin Concent 33.1 G/DL (32.0-36.0) Red Cell Distribution Width 12.1 % (11.6-14.8) Platelet Count 396 K/UL (150-450) Mean Platelet Volume 5.0 FL (6.5-10.1) L Neutrophils (%) (Auto) % (45.0-75.0) Lymphocytes (%) (Auto) % (20.0-45.0) Monocytes (%) (Auto) % (1.0-10.0) Eosinophils (%) (Auto) % (0.0-3.0) Basophils (%) (Auto) % (0.0-2.0) Differential Total Cells Counted 100 Neutrophils % (Manual) 53 % (45-75) Lymphocytes % (Manual) 36 % (20-45) Monocytes % (Manual) 8 % (1-10) Eosinophils % (Manual) 3 % (0-3) Basophils % (Manual) 0 % (0-2) Band Neutrophils 0 % (0-8) Platelet Estimate Adequate Platelet Morphology Normal Macrocytosis 1+ Sodium Level 140 MMOL/L (136-145) Potassium Level 3.8 MMOL/L (3.5-5.1) Chloride Level 105 MMOL/L (98-107) Carbon Dioxide Level 25 MMOL/L (21-32) Anion Gap 10 mmol/L (5-15) Blood Urea Nitrogen 13 mg/dL (7-18) Creatinine 0.4 MG/DL (0.55-1.30) L Estimat Glomerular Filtration Rate > 60 mL/min (>60) Glucose Level 100 MG/DL (74-106) # Calcium Level 8.3 MG/DL (8.5-10.1) L Height (Feet): 5 Height (Inches): 5.00 Weight (Pounds): 99 General Appearance: no apparent distress Cardiovascular: normal rate Abdominal Exam: soft Moriah Dang [employer] Nov 21, 2018 12:21
--- NOTE | 2018-11-21 15:00 | NUR ---
NURSE NOTES: FAXED [facility] RELEASE OF MEDICAL RECORDS PER DOCTORS REQUEST, TRIED CONTACTING [facility] MEDICAL RECORDS DEPARTMENT TO CONFIRM THEY RECEIVED THE FAX, WAS UNABLE TO SPEAK TO A LIVE PERSON AND WAS DIRECTED TO A VOICEMAIL BOX HOWEVER, I COULD NOT LEAVE A MESSAGE BECAUSE THE VOICEMAIL BOX WAS FULL. WILL TRY TO CONTACT AGAIN BEFORE 5PM. Addendum: 11/21/18 at 1538 by Jose Francisco Barnett RN CONTACTED [facility] AGAIN AND WAS GIVEN ANOTHER NUMBER TO FAX THE DOCUMENTS TO. RE SENT THE DOCUMENTS TO THE NEW FAX NUMBER, THE WOMAN SAID USING THAT NUMBER SHOULD GET A REPLY TODAY. FAX NUMBER IS [phone].
[2018-11-21] MEDS: HYDROcodone/Acetamin 5/325 tab ORAL PRN (15:06)
--- NOTE | 2018-11-21 15:09 | Diagnostic Imaging Report ---
Indication: Abdominal pain Technique: Peres-scale and duplex images of the upper abdomen were obtained Comparison: Findings: Gallbladder demonstrates a mural nonmobile nonshadowing slightly hyperechoic focus which measures 6 mm diameter, presumably a polyp. No stones. No gallbladder wall thickening or pericholecystic fluid Sonographic Barcenas's sign is negative. Common bile duct measures 6 mm in diameter. No intrahepatic biliary ductal dilatation. Liver demonstrates diffuse increased echogenicity in a somewhat heterogeneous pattern. No surface nodularity demonstrated. Portal vein and hepatic veins are patent. Pancreas is incompletely visualized due to overlying bowel gas, visualized portions are unremarkable. Spleen is unremarkable. Left kidney measures 11 cm in length. Right kidney measures .5 cm length. Both kidneys demonstrate normal echogenicity. There is no hydronephrosis. There is questionably a small left lower pole cyst . Abdominal aorta is partially obscured by bowel gas, visualized portions are non-aneurysmal . Impression: 6 mm gallbladder polyp. Negative for gallstones or dilated bile ducts Liver demonstrates diffusely increased echogenicity, consistent with diffuse hepatocellular disease, most likely fatty change. Questionable small left lower pole renal cyst Note nonvisualization of portions of the abdominal aorta and pancreas
--- NOTE | 2018-11-21 15:54 | NUR ---
NURSE NOTES: CONTACTED DR BRIZUELA REGARDING MEDICATIONS FOR THE PATIENT AT DISCHARGE. PATIENT IS HOMELESS AND REQUIRES INSULIN, GLUCOMETER AND TEST STRIPS, CONFIRMED HE WOULD CALL [facility] TO PLACE THE ORDERS, SO THAT THE PATIENT HAS MEDICATIONS UPON DISCHARGE.
[2018-11-21 16:00] VITALS: BP 81/53
--- NOTE | 2018-11-21 18:10 | NUR ---
NURSE NOTES: LEFT A MESSAGE FOR DR. BRIZUELA REGARDING THE PATIENTS [facility] SAID DUE TO HIS INSURANCE THEY NEED A PHYSICAL COPY.
--- NOTE | 2018-11-21 18:59 | Pulmonology Progress Note ---
Assessment/Plan Assessment/Plan Pulmonary Progress Note HPI Patient is a 43-year old man with history of Insulin Dependent Diabetes Mellitus who presents with DKA, c/o abdominal pain, nausea fatigue and elevated glucose readings. He has not had insulin in 2 months. He is also complaining of left ankle pain. He denies recent illness such as fever, chills, nasal congestion, sore throat. He does note a nonproductive cough. Denies any diarrhea, dysuria. Denies injury. No new complaints, stable Pulmonary Status PMH: Insulin Dependent Diabetes Mellitus Physical Exam Vital Signs Noted General: Awake and alert, comfortable HEENT: NC/AT. EOMI. dry mucous membranes Cardiovascular: Tachycardic. S1 and S2 normal. No murmur appreciated Resp: Normal work of breathing. No cough, wheezing or crackles appreciated Abdomen: Abdomen is soft, nondistended. No significant tenderness.. No masses. No guarding Skin: Intact. No abrasions, laceration or rash over the exposed skin MSK: Palpation of the anterior and posterior element of the medial malleolus of the left ankle. Some edema. Neuro: Awake and alert. Mentating appropriately. Impression: Insulin Dependent Diabetes Mellitus DKA, Hyperglycemia Ankle pain Plan: IVF PRN Insulin per Endocrine CXR negative for infiltrate Monitor labs PPX EKG: Rate: normal Rhythm: NSR, no acute changes. Normal intervals. No ischemic changes. Chest X-Ray no consolidation, no effusion, no pneumothorax X-rays of the foot: previous hardware but does not obviously show periprosthetic fracture. He will be admitted for further monitoring. Subjective ROS Limited/Unobtainable: No Allergies: Coded Allergies: No Known Allergies (Unverified , 11/15/18) Objective Last 24 Hour Vital Signs Date Time Temp Pulse Resp B/P (MAP) Pulse Ox O2 Delivery O2 Flow Rate FiO2 11/21/18 16:00 98.8 79 16 81/53 (62) 97 11/21/18 12:00 98.0 70 16 98/59 (72) 99 11/21/18 09:00 Room Air 11/21/18 08:00 98.6 79 16 81/53 (62) 97 11/21/18 04:00 97.7 79 18 99/66 (77) 97 11/21/18 00:00 97.9 84 20 99/54 (69) 98 11/20/18 21:00 Room Air 11/20/18 20:00 99.0 89 20 100/60 (73) 96 Intake and Output 11/20/18 11/21/18 19:00 07:00 Intake Total 2200 ml Output Total 1100 ml 400 ml Balance 1100 ml -400 ml Intake Oral 1200 ml IV Total 1000 ml Output Urine Total 1100 ml 400 ml # Bowel Movements 1 Microbiology Date/Time Source Procedure Growth Status 11/19/18 18:40 Urine,Clean Catch Urine Culture - Preliminary Mixed Gram Positive Organism Resulted Laboratory Tests 11/21/18 08:00: White Blood Count 3.4L, Red Blood Count 3.26L, Hemoglobin 11.1L, Hematocrit 33.4L, Mean Corpuscular Volume 102H, Mean Corpuscular Hemoglobin 33.9H, Mean Corpuscular Hemoglobin Concent 33.1, Red Cell Distribution Width 12.1, Platelet Count 396, Mean Platelet Volume 5.0L, Neutrophils (%) (Auto) , Lymphocytes (%) ( Auto) , Monocytes (%) (Auto) , Eosinophils (%) (Auto) , Basophils (%) (Auto) , Differential Total Cells Counted 100, Neutrophils % (Manual) 53, Lymphocytes % ( Manual) 36, Monocytes % (Manual) 8, Eosinophils % (Manual) 3, Basophils % ( Manual) 0, Band Neutrophils 0, Platelet Estimate Adequate, Platelet Morphology Normal, Macrocytosis 1+, Sodium Level 140, Potassium Level 3.8, Chloride Level 105, Carbon Dioxide Level 25, Anion Gap 10, Blood Urea Nitrogen 13, Creatinine 0.4L, Estimat Glomerular Filtration Rate > 60, Glucose Level 100#, Calcium Level 8.3L Current Medications Medications (Trade) Dose Ordered Sig/Yasemin Route PRN Reason Start Time Stop Time Status Last Admin Dose Admin Acetaminophen (Tylenol) 650 mg Q6H PRN ORAL Mild Pain/Temp > 100.5 11/16/18 17:30 12/15/18 17:29 Acetaminophen/ Hydrocodone Bitart ([place] 5/325) 1 tab Q8H PRN ORAL For pain 7-10 11/18/18 16:45 11/25/18 16:44 11/21/18 15:06 Dextrose (Dextrose 50%) 25 ml Q30M PRN IV Hypoglycemia 11/17/18 06:30 12/17/18 06:29 Dextrose (Dextrose 50%) 50 ml Q30M PRN IV Hypoglycemia 11/17/18 06:30 12/17/18 06:29 Docusate Sodium (Colace) 100 mg TID ORAL 11/21/18 13:00 12/17/18 08:59 11/21/18 18:30 Heparin Sodium (Porcine) (Heparin 5000 units/ml) 5,000 units EVERY 12 HOURS SUBQ 11/16/18 21:00 12/16/18 08:59 11/21/18 09:25 Insulin Aspart (NovoLOG) BEFORE MEALS AND HS SUBQ 11/16/18 21:00 12/16/18 06:29 11/21/18 16:46 Insulin Aspart (NovoLOG) 8 units NOVOTIAC SUBQ 11/17/18 06:30 12/16/18 06:29 11/21/18 16:45 Insulin Detemir (Levemir) 16 units BID SUBQ 11/19/18 09:00 12/17/18 08:59 11/21/18 18:32 Midodrine (Pro-Amatine) 2.5 mg THREE TIMES A DAY ORAL 11/21/18 09:45 12/21/18 09:44 11/21/18 18:29 Ondansetron HCl (Zofran) 4 mg Q6H PRN IVP Nausea & Vomiting 11/16/18 17:30 12/15/18 17:29 Pantoprazole (Protonix) 40 mg DAILY ORAL 11/16/18 19:45 12/16/18 19:44 11/21/18 09:26 Solomon Lanier MD Nov 21, 2018 18:59
--- NOTE | 2018-11-21 19:34 | NUR ---
HAND-OFF: Report given to JUSTIN SHEPPARD.
[2018-11-21 20:00] VITALS: BP 109/70
--- NOTE | 2018-11-21 20:00 | NUR ---
NURSE NOTES: Received patient comfortably sleeping.
--- NOTE | 2018-11-21 21:06 | General Progress Note ---
Assessment/Plan Problem List: (1) Diabetes mellitus with ketoacidosis ICD Codes: E11.10 - Type 2 diabetes mellitus with ketoacidosis without coma SNOMED: 95417660, 549730107 (2) Hyperglycemia ICD Codes: R73.9 - Hyperglycemia, unspecified SNOMED: 46787085 (3) Abdominal pain ICD Codes: R10.9 - Unspecified abdominal pain SNOMED: 36271124 (4) Nausea & vomiting ICD Codes: R11.2 - Nausea with vomiting, unspecified SNOMED: 01455412 (5) Electrolyte abnormality ICD Codes: E87.8 - Other disorders of electrolyte and fluid balance, not elsewhere classified SNOMED: 232608404 Status: stable, progressing Assessment/Plan: sugar improved niddm dka revolved check lytes no abdominal pain eadvance diet per gi afebrile Subjective ROS Limited/Unobtainable: Yes Allergies: Coded Allergies: No Known Allergies (Unverified , 11/15/18) Objective Last 24 Hour Vital Signs Date Time Temp Pulse Resp B/P (MAP) Pulse Ox O2 Delivery O2 Flow Rate FiO2 11/21/18 20:35 Room Air 11/21/18 16:00 98.8 79 16 81/53 (62) 97 11/21/18 12:00 98.0 70 16 98/59 (72) 99 11/21/18 09:00 Room Air 11/21/18 08:00 98.6 79 16 81/53 (62) 97 11/21/18 04:00 97.7 79 18 99/66 (77) 97 11/21/18 00:00 97.9 84 20 99/54 (69) 98 Intake and Output 11/20/18 11/21/18 18:59 06:59 Intake Total 2200 ml Output Total 1100 ml 400 ml Balance 1100 ml -400 ml Intake Oral 1200 ml IV Total 1000 ml Output Urine Total 1100 ml 400 ml # Bowel Movements 1 Laboratory Tests 11/21/18 08:00: White Blood Count 3.4L, Red Blood Count 3.26L, Hemoglobin 11.1L, Hematocrit 33.4L, Mean Corpuscular Volume 102H, Mean Corpuscular Hemoglobin 33.9H, Mean Corpuscular Hemoglobin Concent 33.1, Red Cell Distribution Width 12.1, Platelet Count 396, Mean Platelet Volume 5.0L, Neutrophils (%) (Auto) , Lymphocytes (%) ( Auto) , Monocytes (%) (Auto) , Eosinophils (%) (Auto) , Basophils (%) (Auto) , Differential Total Cells Counted 100, Neutrophils % (Manual) 53, Lymphocytes % ( Manual) 36, Monocytes % (Manual) 8, Eosinophils % (Manual) 3, Basophils % ( Manual) 0, Band Neutrophils 0, Platelet Estimate Adequate, Platelet Morphology Normal, Macrocytosis 1+, Sodium Level 140, Potassium Level 3.8, Chloride Level 105, Carbon Dioxide Level 25, Anion Gap 10, Blood Urea Nitrogen 13, Creatinine 0.4L, Estimat Glomerular Filtration Rate > 60, Glucose Level 100#, Calcium Level 8.3L Height (Feet): 5 Height (Inches): 5.00 Weight (Pounds): 99 Cardiovascular: regular rhythm Respiratory/Chest: lungs clear Klever Vee MD Nov 21, 2018 21:06
[2018-11-22] MEDS ORDERED: Levemir Flexpen SUBQ SCH
[2018-11-22] MEDS ORDERED: NovoLOG Insulin Flexpen SUBQ SCH
[2018-11-22 00:12] VITALS: BP 101/63
[2018-11-22 04:00] VITALS: BP 104/62
[2018-11-22] MEDS: NovoLOG Insulin Flexpen SUBQ SCH ×7 (05:58→20:42)
--- NOTE | 2018-11-22 06:25 | General Progress Note ---
Assessment/Plan Problem List: (1) Diabetes mellitus with ketoacidosis ICD Codes: E11.10 - Type 2 diabetes mellitus with ketoacidosis without coma SNOMED: 32001072, 910302257 (2) Hyperglycemia ICD Codes: R73.9 - Hyperglycemia, unspecified SNOMED: 73374341 (3) Abdominal pain ICD Codes: R10.9 - Unspecified abdominal pain SNOMED: 49586820 (4) Nausea & vomiting ICD Codes: R11.2 - Nausea with vomiting, unspecified SNOMED: 06044371 Status: stable, progressing Assessment/Plan: continue Levemir 16 units bid continue Novolog 8 units ac tid continue NISS ac / hs Rx for diabetic supplies and insulin left in chart Subjective Allergies: Coded Allergies: No Known Allergies (Unverified , 11/15/18) All Systems: reviewed and negative except above Subjective events noted labile glucose complaining of abdominal pain Item Value Date Time Bedside Blood Glucose 313 mg/dl H 11/21/18 1832 Bedside Blood Glucose 174 mg/dl H 11/21/18 1221 Bedside Blood Glucose 197 mg/dl H 11/21/18 0620 Objective Last 24 Hour Vital Signs Date Time Temp Pulse Resp B/P (MAP) Pulse Ox O2 Delivery O2 Flow Rate FiO2 11/22/18 04:00 98.6 79 18 104/62 (76) 96 11/22/18 00:12 98.0 80 17 101/63 (76) 98 11/21/18 20:35 Room Air 11/21/18 20:00 98.4 76 16 109/70 (83) 97 11/21/18 16:00 98.8 79 16 81/53 (62) 97 11/21/18 12:00 98.0 70 16 98/59 (72) 99 11/21/18 09:00 Room Air 11/21/18 08:00 98.6 79 16 81/53 (62) 97 Intake and Output 11/21/18 11/22/18 19:00 07:00 Intake Total 460 ml Output Total 800 ml Balance -800 ml 460 ml Intake Oral 460 ml Output Urine Total 800 ml # Voids 4 3 Laboratory Tests 11/21/18 08:00: White Blood Count 3.4L, Red Blood Count 3.26L, Hemoglobin 11.1L, Hematocrit 33.4L, Mean Corpuscular Volume 102H, Mean Corpuscular Hemoglobin 33.9H, Mean Corpuscular Hemoglobin Concent 33.1, Red Cell Distribution Width 12.1, Platelet Count 396, Mean Platelet Volume 5.0L, Neutrophils (%) (Auto) , Lymphocytes (%) ( Auto) , Monocytes (%) (Auto) , Eosinophils (%) (Auto) , Basophils (%) (Auto) , Differential Total Cells Counted 100, Neutrophils % (Manual) 53, Lymphocytes % ( Manual) 36, Monocytes % (Manual) 8, Eosinophils % (Manual) 3, Basophils % ( Manual) 0, Band Neutrophils 0, Platelet Estimate Adequate, Platelet Morphology Normal, Macrocytosis 1+, Sodium Level 140, Potassium Level 3.8, Chloride Level 105, Carbon Dioxide Level 25, Anion Gap 10, Blood Urea Nitrogen 13, Creatinine 0.4L, Estimat Glomerular Filtration Rate > 60, Glucose Level 100#, Calcium Level 8.3L 11/22/18 04:50: Sodium Level [Pending], Potassium Level [Pending], Chloride Level [Pending], Carbon Dioxide Level [Pending], Blood Urea Nitrogen [Pending], Creatinine [ Pending], Estimat Glomerular Filtration Rate [Pending], Glucose Level [Pending] , Calcium Level [Pending], Uric Acid [Pending], Phosphorus Level [Pending], Magnesium Level [Pending], Total Bilirubin [Pending], Aspartate Amino Transf ( AST/SGOT) [Pending], Alanine Aminotransferase (ALT/SGPT) [Pending], Alkaline Phosphatase [Pending], C-Reactive Protein, Quantitative [Pending], Pro-B-Type Natriuretic Peptide [Pending], Total Protein [Pending], Albumin [Pending], Globulin [Pending], Cortisol AM Sample [Pending] Height (Feet): 5 Height (Inches): 5.00 Weight (Pounds): 98 General Appearance: no apparent distress Neck: normal alignment Cardiovascular: normal rate Abdomen: normal bowel sounds Objective Current Medications Medications (Trade) Dose Ordered Sig/Yasemin Route PRN Reason Start Time Stop Time Status Last Admin Dose Admin Acetaminophen (Tylenol) 650 mg Q6H PRN ORAL Mild Pain/Temp > 100.5 11/16/18 17:30 12/15/18 17:29 Acetaminophen/ Hydrocodone Bitart ([place] 5/325) 1 tab Q8H PRN ORAL For pain 7-10 11/18/18 16:45 11/25/18 16:44 11/21/18 15:06 Dextrose (Dextrose 50%) 25 ml Q30M PRN IV Hypoglycemia 11/17/18 06:30 12/17/18 06:29 Dextrose (Dextrose 50%) 50 ml Q30M PRN IV Hypoglycemia 11/17/18 06:30 12/17/18 06:29 Docusate Sodium (Colace) 100 mg TID ORAL 11/21/18 13:00 12/17/18 08:59 11/21/18 18:30 Heparin Sodium (Porcine) (Heparin 5000 units/ml) 5,000 units EVERY 12 HOURS SUBQ 11/16/18 21:00 12/16/18 08:59 11/21/18 21:02 Insulin Aspart (NovoLOG) BEFORE MEALS AND HS SUBQ 11/16/18 21:00 12/16/18 06:29 11/22/18 05:59 Insulin Aspart (NovoLOG) 8 units NOVOTIAC SUBQ 11/17/18 06:30 12/16/18 06:29 11/22/18 05:58 Insulin Detemir (Levemir) 16 units BID SUBQ 11/19/18 09:00 12/17/18 08:59 11/21/18 18:32 Midodrine (Pro-Amatine) 2.5 mg THREE TIMES A DAY ORAL 11/21/18 09:45 12/21/18 09:44 11/21/18 18:29 Ondansetron HCl (Zofran) 4 mg Q6H PRN IVP Nausea & Vomiting 11/16/18 17:30 12/15/18 17:29 Pantoprazole (Protonix) 40 mg DAILY ORAL 11/16/18 19:45 12/16/18 19:44 11/21/18 09:26 Merrick Rivera MD Nov 22, 2018 06:25
[2018-11-22 07:01] LABS: ALANINE AMINOTRANSFERASE 38 U/L (12-78); ALBUMIN 2.5 G/DL (3.4-5.0); ALBUMIN/GLOBULIN RATIO 0.6 (1.0-2.7); ALKALINE PHOSPHATASE 245 U/L (46-116); ANION GAP 6 mmol/L (5-15); ASPARTATE AMINO TRANSFERASE 52 U/L (15-37); BILIRUBIN,TOTAL 0.2 MG/DL (0.2-1.0); BLOOD UREA NITROGEN 14 mg/dL (7-18); CALCIUM 8.6 MG/DL (8.5-10.1); CARBON DIOXIDE 29 MMOL/L (21-32); CHLORIDE 100 MMOL/L (98-107); CREATININE 0.6 MG/DL (0.55-1.30); PHOSPHORUS 3.9 MG/DL (2.5-4.9); POTASSIUM 4.2 MMOL/L (3.5-5.1); SODIUM 135 MMOL/L (136-145)
--- NOTE | 2018-11-22 07:23 | NUR ---
HAND-OFF: Report given to Ernesto Ly RN.
--- NOTE | 2018-11-22 07:24 | NUR ---
NURSE NOTES: Received pt in bed, AAO x4. No c/o of distress/pain. IV on R UA 20g and L UA 20g, intact and patent, with saline lock. Side rails x 2. Call light within reach. Bed in the lowest and locked. Will continue to monitor
[2018-11-22 08:00] VITALS: BP 94/55
[2018-11-22] MEDS: Levemir Flexpen SUBQ SCH ×2 (08:43→17:40)
[2018-11-22] MEDS: Heparin 5000 units/ml inj SUBQ SCH ×2 (08:44→20:43)
[2018-11-22] MEDS: Docusate 100mg cap ORAL SCH ×3 (08:44→17:37)
[2018-11-22] MEDS: HYDROcodone/Acetamin 5/325 tab ORAL PRN (08:53)
--- NOTE | 2018-11-22 10:50 | NUR ---
Social Service Note Received copy of prescriptions from chart, to be filled upon discharge. Patient continues to require medical intervention at this time. Will continue to monitor and follow up.
--- NOTE | 2018-11-22 10:54 | Nephrology Progress Note ---
Assessment/Plan Problem List: (1) Hyperglycemia (2) Electrolyte abnormality (3) Hypotension Assessment Hyperglycemia - admitted with BS over 900 Electrolyte abnormality IDDM Plan start Midodrine- adjust dose stable from renal stand Per Endo ELectrolyte supplement as needed per orders Subjective ROS Limited/Unobtainable: No Objective Objective Last 24 Hour Vital Signs Date Time Temp Pulse Resp B/P (MAP) Pulse Ox O2 Delivery O2 Flow Rate FiO2 11/22/18 09:00 Room Air 11/22/18 08:00 98.7 85 16 94/55 (68) 98 11/22/18 04:00 98.6 79 18 104/62 (76) 96 11/22/18 00:12 98.0 80 17 101/63 (76) 98 11/21/18 20:35 Room Air 11/21/18 20:00 98.4 76 16 109/70 (83) 97 11/21/18 16:00 98.8 79 16 81/53 (62) 97 11/21/18 12:00 98.0 70 16 98/59 (72) 99 Intake and Output 11/21/18 11/22/18 19:00 07:00 Intake Total 460 ml Output Total 800 ml Balance -800 ml 460 ml Intake Oral 460 ml Output Urine Total 800 ml # Voids 4 3 Laboratory Tests 11/22/18 04:50: Sodium Level 135L, Potassium Level 4.2, Chloride Level 100, Carbon Dioxide Level 29, Anion Gap 6, Blood Urea Nitrogen 14, Creatinine 0.6, Estimat Glomerular Filtration Rate > 60, Glucose Level 362#H, Uric Acid 2.1L, Calcium Level 8.6, Phosphorus Level 3.9, Magnesium Level 1.8, Total Bilirubin 0.2, Aspartate Amino Transf (AST/SGOT) 52H, Alanine Aminotransferase (ALT/SGPT) 38, Alkaline Phosphatase 245H, C-Reactive Protein, Quantitative 0.6, Pro-B-Type Natriuretic Peptide 313H, Total Protein 6.5, Albumin 2.5L, Globulin 4.0, Albumin /Globulin Ratio 0.6L, Cortisol AM Sample [Pending] Height (Feet): 5 Height (Inches): 5.00 Weight (Pounds): 98 General Appearance: no apparent distress Objective no change Kj Pimentel MD Nov 22, 2018 10:54
[2018-11-22 12:00] VITALS: BP 103/65
--- NOTE | 2018-11-22 12:05 | NUR ---
RD ASSESSMENT & RECOMMENDATIONS SEE CARE ACTIVITY FOR COMPLETE ASSESSMENT DAILY ESTIMATED NEEDS: Needs based on DM, underweight 47kg 25-35 kcals/kg 5253-2334 total kcals 1-1.5 g protein/kg 47-71 g total protein 25-30 mL/kg 6091-4030 total fluid mLs NUTRITION DIAGNOSIS: Altered nutrition related lab values r/t DKA as evidenced by (+) acetone on adm, 4+ uglu, A1c 13.1, BG >900 on adm, pt is insulin dep. [facility] RECOMMENDATIONS: [facility] LOW + DOUBLE PROTEIN PORTIONS ADDITIONAL RECOMMENDATIONS: 1) Obtain a standing weight and height as able -> and re-calibrate bedscale as it reads a negative number on 11/22 2) Add B-complex q daily for glucose metabolism 3) Monitor lytes daily- replete as needed 4) Diet edu as able, as appropriate
--- NOTE | 2018-11-22 12:44 | Infectious Diseases Prog Note ---
Assessment/Plan Assessment/Plan IMPRESSION: Chronic abdominal pain associated with nausea vomiting. The history of fungal infection, diabetes mellitus with diabetes ketoacidosis/ uncontrolled DM cachexia, severe protein malnutrition, significant weight loss, homeless, history of polysubstance abuse, leukopenia Fatty liver Gallbladder polyp RECOMMENDATION: We will try to obtain previous diagnosis and treatment from [facility]. We will observe off antibiotics for now. Subjective ROS Limited/Unobtainable: Yes Respiratory: Reports: no symptoms Cardiovascular: Reports: no symptoms Gastrointestinal/Abdominal: Reports: other - left upper quadrant pain Allergies: Coded Allergies: No Known Allergies (Unverified , 11/15/18) Objective Vital Signs Last 24 Hour Vital Signs Date Time Temp Pulse Resp B/P (MAP) Pulse Ox O2 Delivery O2 Flow Rate FiO2 11/22/18 12:00 98.9 64 16 103/65 (78) 98 11/22/18 09:00 Room Air 11/22/18 08:00 98.7 85 16 94/55 (68) 98 11/22/18 04:00 98.6 79 18 104/62 (76) 96 11/22/18 00:12 98.0 80 17 101/63 (76) 98 11/21/18 20:35 Room Air 11/21/18 20:00 98.4 76 16 109/70 (83) 97 11/21/18 16:00 98.8 79 16 81/53 (62) 97 Height (Feet): 5 Height (Inches): 5.00 Weight (Pounds): 98 General Appearance: no acute distress HEENT: mucous membranes moist Respiratory/Chest: lungs clear Cardiovascular: normal rate Abdomen: soft, non tender Extremities: no edema Neurologic/Psychiatric: alert, responsive Microbiology Date/Time Source Procedure Growth Status 11/19/18 18:40 Urine,Clean Catch Urine Culture - Final Mixed Gram Positive Organism Complete Laboratory Tests Test 11/22/18 04:50 Sodium Level 135 MMOL/L (136-145) L Potassium Level 4.2 MMOL/L (3.5-5.1) Chloride Level 100 MMOL/L (98-107) Carbon Dioxide Level 29 MMOL/L (21-32) Anion Gap 6 mmol/L (5-15) Blood Urea Nitrogen 14 mg/dL (7-18) Creatinine 0.6 MG/DL (0.55-1.30) Estimat Glomerular Filtration Rate > 60 mL/min (>60) Glucose Level 362 MG/DL (74-106) #H Uric Acid 2.1 MG/DL (2.6-7.2) L Calcium Level 8.6 MG/DL (8.5-10.1) Phosphorus Level 3.9 MG/DL (2.5-4.9) Magnesium Level 1.8 MG/DL (1.8-2.4) Total Bilirubin 0.2 MG/DL (0.2-1.0) Aspartate Amino Transf (AST/SGOT) 52 U/L (15-37) H Alanine Aminotransferase (ALT/SGPT) 38 U/L (12-78) Alkaline Phosphatase 245 U/L (46-116) H C-Reactive Protein, Quantitative 0.6 mg/dL (0.00-0.90) Pro-B-Type Natriuretic Peptide 313 pg/mL (0-125) H Total Protein 6.5 G/DL (6.4-8.2) Albumin 2.5 G/DL (3.4-5.0) L Globulin 4.0 g/dL Albumin/Globulin Ratio 0.6 (1.0-2.7) L Cortisol AM Sample 6.4 UG/DL Current Medications Medications (Trade) Dose Ordered Sig/Yasemin Route PRN Reason Start Time Stop Time Status Last Admin Dose Admin Acetaminophen (Tylenol) 650 mg Q6H PRN ORAL Mild Pain/Temp > 100.5 11/16/18 17:30 12/15/18 17:29 Acetaminophen/ Hydrocodone Bitart ([place] 5/325) 1 tab Q8H PRN ORAL For pain 7-10 11/18/18 16:45 11/25/18 16:44 11/22/18 08:53 Dextrose (Dextrose 50%) 25 ml Q30M PRN IV Hypoglycemia 11/17/18 06:30 12/17/18 06:29 Dextrose (Dextrose 50%) 50 ml Q30M PRN IV Hypoglycemia 11/17/18 06:30 12/17/18 06:29 Docusate Sodium (Colace) 100 mg TID ORAL 11/21/18 13:00 12/17/18 08:59 11/22/18 08:44 Heparin Sodium (Porcine) (Heparin 5000 units/ml) 5,000 units EVERY 12 HOURS SUBQ 11/16/18 21:00 12/16/18 08:59 11/22/18 08:44 Insulin Aspart (NovoLOG) BEFORE MEALS AND HS SUBQ 11/16/18 21:00 12/16/18 06:29 11/22/18 11:49 Insulin Aspart (NovoLOG) 8 units NOVOTIAC SUBQ 11/22/18 00:00 11/22/18 23:59 No refill Insulin Aspart (NovoLOG) 8 units NOVOTIAC SUBQ 11/17/18 06:30 12/16/18 06:29 11/22/18 11:50 Insulin Detemir (Levemir) 16 units BID SUBQ 11/22/18 00:00 11/22/18 23:59 No refill Insulin Detemir (Levemir) 16 units BID SUBQ 11/19/18 09:00 12/17/18 08:59 11/22/18 08:43 Midodrine (Pro-Amatine) 5 mg THREE TIMES A DAY ORAL 11/22/18 13:00 12/21/18 09:44 Ondansetron HCl (Zofran) 4 mg Q6H PRN IVP Nausea & Vomiting 11/16/18 17:30 12/15/18 17:29 Pantoprazole (Protonix) 40 mg DAILY ORAL 11/16/18 19:45 12/16/18 19:44 11/22/18 08:44 Sang Wright MD Nov 22, 2018 12:44
--- NOTE | 2018-11-22 13:42 | GI Progress Note ---
Assessment/Plan Problems: (1) Electrolyte abnormality ICD Codes: E87.8 - Other disorders of electrolyte and fluid balance, not elsewhere classified SNOMED: 161030308 (2) Nausea & vomiting ICD Codes: R11.2 - Nausea with vomiting, unspecified SNOMED: 94103431 (3) Abdominal pain ICD Codes: R10.9 - Unspecified abdominal pain SNOMED: 19038117 (4) Diabetes mellitus with ketoacidosis ICD Codes: E11.10 - Type 2 diabetes mellitus with ketoacidosis without coma SNOMED: 67237887, 321744610 (5) Hyperglycemia ICD Codes: R73.9 - Hyperglycemia, unspecified SNOMED: 44795871 Status: stable Status Narrative Discussed with Dr. Car. Assessment/Plan nausea 2/2 to DKA zofran prn advance diet DM management prn transfusions ppi electrolyte correction cont laxative The patient was seen and examined at bedside and all new and available data was reviewed in the patients chart. I agree with the above findings, impression and plan. (Patient seen earlier today. Signature stamp does not reflect patient encounter time.). - Surjit Car MD Subjective Gastrointestinal/Abdominal: Reports: abdominal pain Objective Last 24 Hour Vital Signs Date Time Temp Pulse Resp B/P (MAP) Pulse Ox O2 Delivery O2 Flow Rate FiO2 11/22/18 12:00 98.9 64 16 103/65 (78) 98 11/22/18 09:00 Room Air 11/22/18 08:00 98.7 85 16 94/55 (68) 98 11/22/18 04:00 98.6 79 18 104/62 (76) 96 11/22/18 00:12 98.0 80 17 101/63 (76) 98 11/21/18 20:35 Room Air 11/21/18 20:00 98.4 76 16 109/70 (83) 97 11/21/18 16:00 98.8 79 16 81/53 (62) 97 Intake and Output 11/21/18 11/22/18 19:00 07:00 Intake Total 460 ml Output Total 800 ml Balance -800 ml 460 ml Intake Oral 460 ml Output Urine Total 800 ml # Voids 4 3 Laboratory Tests Test 11/22/18 04:50 Sodium Level 135 MMOL/L (136-145) L Potassium Level 4.2 MMOL/L (3.5-5.1) Chloride Level 100 MMOL/L (98-107) Carbon Dioxide Level 29 MMOL/L (21-32) Anion Gap 6 mmol/L (5-15) Blood Urea Nitrogen 14 mg/dL (7-18) Creatinine 0.6 MG/DL (0.55-1.30) Estimat Glomerular Filtration Rate > 60 mL/min (>60) Glucose Level 362 MG/DL (74-106) #H Uric Acid 2.1 MG/DL (2.6-7.2) L Calcium Level 8.6 MG/DL (8.5-10.1) Phosphorus Level 3.9 MG/DL (2.5-4.9) Magnesium Level 1.8 MG/DL (1.8-2.4) Total Bilirubin 0.2 MG/DL (0.2-1.0) Aspartate Amino Transf (AST/SGOT) 52 U/L (15-37) H Alanine Aminotransferase (ALT/SGPT) 38 U/L (12-78) Alkaline Phosphatase 245 U/L (46-116) H C-Reactive Protein, Quantitative 0.6 mg/dL (0.00-0.90) Pro-B-Type Natriuretic Peptide 313 pg/mL (0-125) H Total Protein 6.5 G/DL (6.4-8.2) Albumin 2.5 G/DL (3.4-5.0) L Globulin 4.0 g/dL Albumin/Globulin Ratio 0.6 (1.0-2.7) L Cortisol AM Sample 6.4 UG/DL Height (Feet): 5 Height (Inches): 5.00 Weight (Pounds): 98 General Appearance: WD/WN, no apparent distress, alert Cardiovascular: normal rate Respiratory/Chest: normal breath sounds, no respiratory distress Abdominal Exam: normal bowel sounds, non tender, soft Extremities: normal range of motion, non-tender Moriah Dang NP Nov 22, 2018 13:42
--- NOTE | 2018-11-22 13:47 | NUR ---
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 98.9 HR 64 RR 16 B/P 103/65 GLU 362 IS: MIDODRINE PO LEVEMIR SUBC HEPARIN SUBC MED/SURG STATUS
--- NOTE | 2018-11-22 15:40 | Pulmonology Progress Note ---
Assessment/Plan Assessment/Plan Pulmonary Progress Note HPI Patient is a 43-year old man with history of Insulin Dependent Diabetes Mellitus who presents with DKA, c/o abdominal pain, nausea fatigue and elevated glucose readings. He has not had insulin in 2 months. He is also complaining of left ankle pain. He denies recent illness such as fever, chills, nasal congestion, sore throat. He does note a nonproductive cough. Denies any diarrhea, dysuria. Denies injury. No new complaints, stable Pulmonary Status PMH: Insulin Dependent Diabetes Mellitus Physical Exam Vital Signs Noted General: Awake and alert, comfortable HEENT: NC/AT. EOMI. dry mucous membranes Cardiovascular: Tachycardic. S1 and S2 normal. No murmur appreciated Resp: Normal work of breathing. No cough, wheezing or crackles appreciated Abdomen: Abdomen is soft, nondistended. No significant tenderness.. No masses. No guarding Skin: Intact. No abrasions, laceration or rash over the exposed skin MSK: Palpation of the anterior and posterior element of the medial malleolus of the left ankle. Some edema. Neuro: Awake and alert. Mentating appropriately. Impression: Insulin Dependent Diabetes Mellitus DKA, Hyperglycemia Ankle pain Plan: IVF PRN Insulin per Endocrine CXR negative for infiltrate Monitor labs PPX EKG: Rate: normal Rhythm: NSR, no acute changes. Normal intervals. No ischemic changes. Chest X-Ray no consolidation, no effusion, no pneumothorax X-rays of the foot: previous hardware but does not obviously show periprosthetic fracture. He will be admitted for further monitoring. Subjective ROS Limited/Unobtainable: No Allergies: Coded Allergies: No Known Allergies (Unverified , 11/15/18) Objective Last 24 Hour Vital Signs Date Time Temp Pulse Resp B/P (MAP) Pulse Ox O2 Delivery O2 Flow Rate FiO2 11/22/18 12:00 98.9 64 16 103/65 (78) 98 11/22/18 09:00 Room Air 11/22/18 08:00 98.7 85 16 94/55 (68) 98 11/22/18 04:00 98.6 79 18 104/62 (76) 96 11/22/18 00:12 98.0 80 17 101/63 (76) 98 11/21/18 20:35 Room Air 11/21/18 20:00 98.4 76 16 109/70 (83) 97 11/21/18 16:00 98.8 79 16 81/53 (62) 97 Intake and Output 11/21/18 11/22/18 19:00 07:00 Intake Total 460 ml Output Total 800 ml Balance -800 ml 460 ml Intake Oral 460 ml Output Urine Total 800 ml # Voids 4 3 Microbiology Date/Time Source Procedure Growth Status 11/19/18 18:40 Urine,Clean Catch Urine Culture - Final Mixed Gram Positive Organism Complete Laboratory Tests 11/22/18 04:50: Sodium Level 135L, Potassium Level 4.2, Chloride Level 100, Carbon Dioxide Level 29, Anion Gap 6, Blood Urea Nitrogen 14, Creatinine 0.6, Estimat Glomerular Filtration Rate > 60, Glucose Level 362#H, Uric Acid 2.1L, Calcium Level 8.6, Phosphorus Level 3.9, Magnesium Level 1.8, Total Bilirubin 0.2, Aspartate Amino Transf (AST/SGOT) 52H, Alanine Aminotransferase (ALT/SGPT) 38, Alkaline Phosphatase 245H, C-Reactive Protein, Quantitative 0.6, Pro-B-Type Natriuretic Peptide 313H, Total Protein 6.5, Albumin 2.5L, Globulin 4.0, Albumin /Globulin Ratio 0.6L, Cortisol AM Sample 6.4 Current Medications Medications (Trade) Dose Ordered Sig/Yasemin Route PRN Reason Start Time Stop Time Status Last Admin Dose Admin Acetaminophen (Tylenol) 650 mg Q6H PRN ORAL Mild Pain/Temp > 100.5 11/16/18 17:30 12/15/18 17:29 Acetaminophen/ Hydrocodone Bitart ([place] 5/325) 1 tab Q8H PRN ORAL For pain 7-10 11/18/18 16:45 11/25/18 16:44 11/22/18 08:53 Dextrose (Dextrose 50%) 25 ml Q30M PRN IV Hypoglycemia 11/17/18 06:30 12/17/18 06:29 Dextrose (Dextrose 50%) 50 ml Q30M PRN IV Hypoglycemia 11/17/18 06:30 12/17/18 06:29 Docusate Sodium (Colace) 100 mg TID ORAL 11/21/18 13:00 12/17/18 08:59 11/22/18 08:44 Heparin Sodium (Porcine) (Heparin 5000 units/ml) 5,000 units EVERY 12 HOURS SUBQ 9/4/19 21:00 12/16/18 08:59 11/22/18 08:44 Insulin Aspart (NovoLOG) BEFORE MEALS AND HS SUBQ 11/16/18 21:00 12/16/18 06:29 11/22/18 11:49 Insulin Aspart (NovoLOG) 8 units NOVOTIAC SUBQ 11/22/18 00:00 11/22/18 23:59 No refill Insulin Aspart (NovoLOG) 8 units NOVOTIAC SUBQ 11/17/18 06:30 12/16/18 06:29 11/22/18 11:50 Insulin Detemir (Levemir) 16 units BID SUBQ 11/22/18 00:00 11/22/18 23:59 No refill Insulin Detemir (Levemir) [facility] 11/19/[facility] 09:00 12/17/18 08:59 11/22/18 08:43 Midodrine (Pro-Amatine) 5 mg THREE TIMES A DAY ORAL 11/22/18 13:00 12/21/18 09:44 Ondansetron HCl (Zofran) 4 mg Q6H PRN IVP Nausea & Vomiting 11/16/18 17:30 12/15/18 17:29 Pantoprazole (Protonix) 40 mg DAILY ORAL 11/16/18 19:45 12/16/18 19:44 11/22/18 08:44 Solomon Lanier MD Nov 22, 2018 15:40
[2018-11-22 16:00] VITALS: BP 115/65
--- NOTE | 2018-11-22 19:24 | NUR ---
HAND-OFF: Report given to JUSTIN Ngo.
--- NOTE | 2018-11-22 19:59 | NUR ---
NURSE NOTES: Received patient awake,alert,verbal,resting in bed,comfortable.
[2018-11-22 20:00] VITALS: BP 99/61
--- NOTE | 2018-11-22 21:35 | General Progress Note ---
Assessment/Plan Problem List: (1) Diabetes mellitus with ketoacidosis ICD Codes: E11.10 - Type 2 diabetes mellitus with ketoacidosis without coma SNOMED: 49545368, 467496352 (2) Hyperglycemia ICD Codes: R73.9 - Hyperglycemia, unspecified SNOMED: 73600843 (3) Abdominal pain ICD Codes: R10.9 - Unspecified abdominal pain SNOMED: 52091781 (4) Nausea & vomiting ICD Codes: R11.2 - Nausea with vomiting, unspecified SNOMED: 62603332 (5) Electrolyte abnormality ICD Codes: E87.8 - Other disorders of electrolyte and fluid balance, not elsewhere classified SNOMED: 616902921 Status: stable, progressing Assessment/Plan: sugar improved niddm dka revolved needs placement afebrile Subjective ROS Limited/Unobtainable: Yes Allergies: Coded Allergies: No Known Allergies (Unverified , 11/15/18) Objective Last 24 Hour Vital Signs Date Time Temp Pulse Resp B/P (MAP) Pulse Ox O2 Delivery O2 Flow Rate FiO2 11/22/18 20:13 Room Air 11/22/18 20:00 100.1 85 15 99/61 (74) 98 11/22/18 16:00 98.7 88 18 115/65 (82) 98 11/22/18 12:00 98.9 64 16 103/65 (78) 98 11/22/18 09:00 Room Air 11/22/18 08:00 98.7 85 16 94/55 (68) 98 11/22/18 04:00 98.6 79 18 104/62 (76) 96 11/22/18 00:12 98.0 80 17 101/63 (76) 98 Intake and Output 11/21/18 11/22/18 18:59 06:59 Intake Total 460 ml Output Total 800 ml Balance -800 ml 460 ml Intake Oral 460 ml Output Urine Total 800 ml # Voids 4 3 Laboratory Tests 11/22/18 04:50: Sodium Level 135L, Potassium Level 4.2, Chloride Level 100, Carbon Dioxide Level 29, Anion Gap 6, Blood Urea Nitrogen 14, Creatinine 0.6, Estimat Glomerular Filtration Rate > 60, Glucose Level 362#H, Uric Acid 2.1L, Calcium Level 8.6, Phosphorus Level 3.9, Magnesium Level 1.8, Total Bilirubin 0.2, Aspartate Amino Transf (AST/SGOT) 52H, Alanine Aminotransferase (ALT/SGPT) 38, Alkaline Phosphatase 245H, C-Reactive Protein, Quantitative 0.6, Pro-B-Type Natriuretic Peptide 313H, Total Protein 6.5, Albumin 2.5L, Globulin 4.0, Albumin /Globulin Ratio 0.6L, Cortisol AM Sample 6.4 Height (Feet): 5 Height (Inches): 5.00 Weight (Pounds): 98 Cardiovascular: normal rate Respiratory/Chest: lungs clear Abdomen: non tender Klever Vee MD Nov 22, 2018 21:35
[2018-11-23] VITALS (7 sets, daily range): BP systolic 96–133; BP diastolic 58–79
[2018-11-23] MEDS: NovoLOG Insulin Flexpen SUBQ SCH ×7 (06:04→20:10)
--- NOTE | 2018-11-23 06:39 | General Progress Note ---
Assessment/Plan Problem List: (1) Diabetes mellitus with ketoacidosis ICD Codes: E11.10 - Type 2 diabetes mellitus with ketoacidosis without coma SNOMED: 50249399, 415165162 (2) Hyperglycemia ICD Codes: R73.9 - Hyperglycemia, unspecified SNOMED: 32867436 (3) Abdominal pain ICD Codes: R10.9 - Unspecified abdominal pain SNOMED: 53375938 (4) Nausea & vomiting ICD Codes: R11.2 - Nausea with vomiting, unspecified SNOMED: 68126787 Status: stable, progressing Assessment/Plan: continue Levemir 16 units bid continue Novolog 8 units ac tid continue NISS ac / hs Rx for diabetic supplies and insulin left in chart Subjective Allergies: Coded Allergies: No Known Allergies (Unverified , 11/15/18) All Systems: reviewed and negative except above Subjective events noted labile glucose Item Value Date Time Bedside Blood Glucose 136 mg/dl H 11/22/18 1740 Bedside Blood Glucose 208 mg/dl H 11/22/18 1150 Bedside Blood Glucose 387 mg/dl H 11/22/18 0843 Glucose Level 362 MG/DL H # 11/22/18 0450 Objective Last 24 Hour Vital Signs Date Time Temp Pulse Resp B/P (MAP) Pulse Ox O2 Delivery O2 Flow Rate FiO2 11/23/18 04:00 99.2 81 16 96/59 (71) 97 11/23/18 00:00 99.3 77 16 101/58 (72) 98 11/22/18 20:13 Room Air 11/22/18 20:00 100.1 85 15 99/61 (74) 98 11/22/18 16:00 98.7 88 18 115/65 (82) 98 11/22/18 12:00 98.9 64 16 103/65 (78) 98 11/22/18 09:00 Room Air 11/22/18 08:00 98.7 85 16 94/55 (68) 98 Intake and Output 11/22/18 11/23/18 19:00 07:00 Intake Total 480 ml Balance 480 ml Intake Oral 480 ml # Voids 4 # Bowel Movements 1 Height (Feet): 5 Height (Inches): 5.00 Weight (Pounds): 98 General Appearance: no apparent distress Neck: normal alignment Cardiovascular: normal rate Respiratory/Chest: lungs clear Abdomen: normal bowel sounds Pelvis: normal external exam Objective Current Medications Medications (Trade) Dose Ordered Sig/Yasemin Route PRN Reason Start Time Stop Time Status Last Admin Dose Admin Acetaminophen (Tylenol) 650 mg Q6H PRN ORAL Mild Pain/Temp > 100.5 11/16/18 17:30 12/15/18 17:29 11/22/18 17:38 Acetaminophen/ Hydrocodone Bitart ([place] 5/325) 1 tab Q8H PRN ORAL For pain 7-10 11/18/18 16:45 11/25/18 16:44 11/22/18 08:53 Dextrose (Dextrose 50%) 25 ml Q30M PRN IV Hypoglycemia 11/17/18 06:30 12/17/18 06:29 Dextrose (Dextrose 50%) 50 ml Q30M PRN IV Hypoglycemia 11/17/18 06:30 12/17/18 06:29 Docusate Sodium (Colace) 100 mg TID ORAL 11/21/18 13:00 12/17/18 08:59 11/22/18 17:37 Heparin Sodium (Porcine) (Heparin 5000 units/ml) 5,000 units EVERY 12 HOURS SUBQ 11/16/18 21:00 12/16/18 08:59 11/22/18 20:43 Insulin Aspart (NovoLOG) BEFORE MEALS AND HS SUBQ 11/16/18 21:00 12/16/18 06:29 11/23/18 06:04 Insulin Aspart (NovoLOG) 8 units NOVOTIAC SUBQ 11/17/18 06:30 12/16/18 06:29 11/23/18 06:04 Insulin Detemir (Levemir) 16 units BID SUBQ 11/19/18 09:00 12/17/18 08:59 11/22/18 17:40 Midodrine (Pro-Amatine) 5 mg THREE TIMES A DAY ORAL 11/22/18 13:00 12/21/18 09:44 11/22/18 17:37 Ondansetron HCl (Zofran) 4 mg Q6H PRN IVP Nausea & Vomiting 11/16/18 17:30 12/15/18 17:29 Pantoprazole (Protonix) 40 mg DAILY ORAL 11/16/18 19:45 12/16/18 19:44 11/22/18 08:44 Merrick Rivera MD Nov 23, 2018 06:39
[2018-11-23 07:00] LABS: EOSINOPHILS % (AUTO) 2.3 % (0.0-3.0); HEMATOCRIT 30.8 % (42.0-52.0); HEMOGLOBIN 10.6 G/DL (14.2-18.0); LYMPHOCYTES % (AUTO) 28.1 % (20.0-45.0); MEAN CORPUSCULAR VOLUME 100 FL (80-99); MONOCYTES % (AUTO) 10.3 % (1.0-10.0); NEUTROPHILS % (AUTO) 58.4 % (45.0-75.0); PLATELET COUNT 393 K/UL (150-450); RED BLOOD COUNT 3.08 M/UL (4.70-6.10); RED CELL DISTRIBUTION WIDTH 11.8 % (11.6-14.8); WHITE BLOOD COUNT 5.6 K/UL (4.8-10.8)
--- NOTE | 2018-11-23 07:11 | NUR ---
HAND-OFF: Report given to Ernesto Ly RN.
--- NOTE | 2018-11-23 07:13 | NUR ---
NURSE NOTES: Received pt in bed, AAO x 4. Room air. C/O of headache and abdominal pain. IV on L UA and R UA 20g intact and patent, with saline lock. Bed in the lowest and locked. Call light within reach. Will continue to monitor.
[2018-11-23 07:17] LABS: ANION GAP 10 mmol/L (5-15); BLOOD UREA NITROGEN 17 mg/dL (7-18); CALCIUM 7.9 MG/DL (8.5-10.1); CARBON DIOXIDE 25 MMOL/L (21-32); CHLORIDE 105 MMOL/L (98-107); CREATININE 0.6 MG/DL (0.55-1.30); POTASSIUM 4.1 MMOL/L (3.5-5.1); SODIUM 140 MMOL/L (136-145)
[2018-11-23] MEDS: Docusate 100mg cap ORAL SCH ×3 (08:22→17:47)
[2018-11-23] MEDS: Levemir Flexpen SUBQ SCH ×2 (08:24→17:49)
[2018-11-23] MEDS: Heparin 5000 units/ml inj SUBQ SCH ×2 (08:24→20:09)
--- NOTE | 2018-11-23 09:08 | Pulmonology Progress Note ---
Assessment/Plan Assessment/Plan Pulmonary Progress Note HPI Patient is a 43-year old man with history of Insulin Dependent Diabetes Mellitus who presents with DKA, c/o abdominal pain, nausea fatigue and elevated glucose readings. He has not had insulin in 2 months. He is also complaining of left ankle pain. He denies recent illness such as fever, chills, nasal congestion, sore throat. He does note a nonproductive cough. Denies any diarrhea, dysuria. Denies injury. Diet being advanced by GI No new complaints, stable Pulmonary Status PMH: Insulin Dependent Diabetes Mellitus Physical Exam Vital Signs Noted General: Awake and alert, comfortable HEENT: NC/AT. EOMI. dry mucous membranes Cardiovascular: Tachycardic. S1 and S2 normal. No murmur appreciated Resp: Normal work of breathing. No cough, wheezing or crackles appreciated Abdomen: Abdomen is soft, nondistended. No significant tenderness.. No masses. No guarding Skin: Intact. No abrasions, laceration or rash over the exposed skin MSK: Palpation of the anterior and posterior element of the medial malleolus of the left ankle. Some edema. Neuro: Awake and alert. Mentating appropriately. Impression: Insulin Dependent Diabetes Mellitus DKA, Hyperglycemia Ankle pain Plan: Advance diet per GI Insulin per Endocrine CXR negative for infiltrate Monitor labs PPX EKG: Rate: normal Rhythm: NSR, no acute changes. Normal intervals. No ischemic changes. Chest X-Ray no consolidation, no effusion, no pneumothorax X-rays of the foot: previous hardware but does not obviously show periprosthetic fracture. He will be admitted for further monitoring. Subjective ROS Limited/Unobtainable: No Allergies: Coded Allergies: No Known Allergies (Unverified , 11/15/18) Objective Last 24 Hour Vital Signs Date Time Temp Pulse Resp B/P (MAP) Pulse Ox O2 Delivery O2 Flow Rate FiO2 11/23/18 08:00 99.5 81 19 99/59 (72) 95 11/23/18 04:00 99.2 81 16 96/59 (71) 97 11/23/18 00:00 99.3 77 16 101/58 (72) 98 11/22/18 20:13 Room Air 11/22/18 20:00 100.1 85 15 99/61 (74) 98 11/22/18 16:00 98.7 88 18 115/65 (82) 98 9/10/19 12:00 98.9 64 16 103/65 (78) 98 Intake and Output 11/22/18 11/23/18 19:00 07:00 Intake Total 480 ml Balance 480 ml Intake Oral 480 ml # Voids 4 # Bowel Movements 1 Laboratory Tests 11/23/18 05:48: White Blood Count 5.6, Red Blood Count 3.08L, Hemoglobin 10.6L, Hematocrit 30.8L , Mean Corpuscular Volume 100H, Mean Corpuscular Hemoglobin 34.3H, Mean Corpuscular Hemoglobin Concent 34.3, Red Cell Distribution Width 11.8, Platelet Count 393, Mean Platelet Volume 4.5L, Neutrophils (%) (Auto) 58.4, Lymphocytes ( %) (Auto) 28.1, Monocytes (%) (Auto) 10.3H, Eosinophils (%) (Auto) 2.3, Basophils (%) (Auto) 1.0, Sodium Level 140, Potassium Level 4.1, Chloride Level 105, Carbon Dioxide Level 25, Anion Gap 10, Blood Urea Nitrogen 17, Creatinine 0.6, Estimat Glomerular Filtration Rate > 60, Glucose Level 263#H, Calcium Level 7.9L Current Medications Medications (Trade) Dose Ordered Sig/Yasemin Route PRN Reason Start Time Stop Time Status Last Admin Dose Admin Acetaminophen (Tylenol) 650 mg Q6H PRN ORAL Mild Pain/Temp > 100.5 11/16/18 17:30 12/15/18 17:29 11/22/18 17:38 Acetaminophen/ Hydrocodone Bitart ([place] 5/325) 1 tab Q8H PRN ORAL For pain 7-10 11/18/18 16:45 11/25/18 16:44 11/22/18 08:53 Dextrose (Dextrose 50%) 25 ml Q30M PRN IV Hypoglycemia 11/17/18 06:30 12/17/18 06:29 Dextrose (Dextrose 50%) 50 ml Q30M PRN IV Hypoglycemia 11/17/18 06:30 12/17/18 06:29 Docusate Sodium (Colace) 100 mg TID ORAL 11/21/18 13:00 12/17/18 08:59 11/23/18 08:22 Heparin Sodium (Porcine) (Heparin 5000 units/ml) 5,000 units EVERY 12 HOURS SUBQ 11/16/18 21:00 12/16/18 08:59 11/23/18 08:24 Insulin Aspart (NovoLOG) BEFORE MEALS AND HS SUBQ 11/16/18 21:00 12/16/18 06:29 11/23/18 06:04 Insulin Aspart (NovoLOG) 8 units NOVOTIAC SUBQ 11/17/18 06:30 12/16/18 06:29 11/23/18 06:04 Insulin Detemir (Levemir) 16 units BID SUBQ 11/19/18 09:00 12/17/18 08:59 11/23/18 08:24 Midodrine (Pro-Amatine) 5 mg THREE TIMES A DAY ORAL 11/22/18 13:00 12/21/18 09:44 11/23/18 08:22 Ondansetron HCl (Zofran) 4 mg Q6H PRN IVP Nausea & Vomiting 11/16/18 17:30 12/15/18 17:29 Pantoprazole (Protonix) 40 mg DAILY ORAL 11/16/18 19:45 12/16/18 19:44 11/23/18 08:21 Solomon Lanier MD Nov 23, 2018 09:08
--- NOTE | 2018-11-23 10:18 | Nephrology Progress Note ---
Assessment/Plan Problem List: (1) Hyperglycemia (2) Electrolyte abnormality (3) Hypotension Assessment Hyperglycemia - admitted with BS over 900 Electrolyte abnormality IDDM Plan start Midodrine- adjust dose stable from renal stand Per Endo ELectrolyte supplement as needed per orders Subjective ROS Limited/Unobtainable: No Objective Objective Last 24 Hour Vital Signs Date Time Temp Pulse Resp B/P (MAP) Pulse Ox O2 Delivery O2 Flow Rate FiO2 11/23/18 09:00 Room Air 11/23/18 08:00 99.5 81 19 99/59 (72) 95 11/23/18 04:00 99.2 81 16 96/59 (71) 97 11/23/18 00:00 99.3 77 16 101/58 (72) 98 11/22/18 20:13 Room Air 11/22/18 20:00 100.1 85 15 99/61 (74) 98 11/22/18 16:00 98.7 88 18 115/65 (82) 98 11/22/18 12:00 98.9 64 16 103/65 (78) 98 Intake and Output 11/22/18 11/23/18 19:00 07:00 Intake Total 480 ml Balance 480 ml Intake Oral 480 ml # Voids 4 # Bowel Movements 1 Laboratory Tests 11/23/18 05:48: White Blood Count 5.6, Red Blood Count 3.08L, Hemoglobin 10.6L, Hematocrit 30.8L , Mean Corpuscular Volume 100H, Mean Corpuscular Hemoglobin 34.3H, Mean Corpuscular Hemoglobin Concent 34.3, Red Cell Distribution Width 11.8, Platelet Count 393, Mean Platelet Volume 4.5L, Neutrophils (%) (Auto) 58.4, Lymphocytes ( %) (Auto) 28.1, Monocytes (%) (Auto) 10.3H, Eosinophils (%) (Auto) 2.3, Basophils (%) (Auto) 1.0, Sodium Level 140, Potassium Level 4.1, Chloride Level 105, Carbon Dioxide Level 25, Anion Gap 10, Blood Urea Nitrogen 17, Creatinine 0.6, Estimat Glomerular Filtration Rate > 60, Glucose Level 263#H, Calcium Level 7.9L Height (Feet): 5 Height (Inches): 5.00 Weight (Pounds): 98 General Appearance: no apparent distress Objective no change Kj Pimentel MD Nov 23, 2018 10:18
--- NOTE | 2018-11-23 12:42 | GI Progress Note ---
Assessment/Plan Problems: (1) Electrolyte abnormality ICD Codes: E87.8 - Other disorders of electrolyte and fluid balance, not elsewhere classified SNOMED: 603965842 (2) Nausea & vomiting ICD Codes: R11.2 - Nausea with vomiting, unspecified SNOMED: 30184295 (3) Abdominal pain ICD Codes: R10.9 - Unspecified abdominal pain SNOMED: 61351012 (4) Diabetes mellitus with ketoacidosis ICD Codes: E11.10 - Type 2 diabetes mellitus with ketoacidosis without coma SNOMED: 40277358, 642202060 (5) Hyperglycemia ICD Codes: R73.9 - Hyperglycemia, unspecified SNOMED: 91992918 Status: stable Status Narrative Discussed with Dr. Car. Assessment/Plan nausea 2/2 to DKA zofran prn advance diet DM management prn transfusions ppi electrolyte correction cont laxative The patient was seen and examined at bedside and all new and available data was reviewed in the patients chart. I agree with the above findings, impression and plan. (Patient seen earlier today. Signature stamp does not reflect patient encounter time.). - Surjit Car MD Subjective Gastrointestinal/Abdominal: Reports: no symptoms Objective Last 24 Hour Vital Signs Date Time Temp Pulse Resp B/P (MAP) Pulse Ox O2 Delivery O2 Flow Rate FiO2 11/23/18 09:00 Room Air 11/23/18 08:00 99.5 81 19 99/59 (72) 95 11/23/18 04:00 99.2 81 16 96/59 (71) 97 11/23/18 00:00 99.3 77 16 101/58 (72) 98 11/22/18 20:13 Room Air 11/22/18 20:00 100.1 85 15 99/61 (74) 98 11/22/18 16:00 98.7 88 18 115/65 (82) 98 Intake and Output 11/22/18 11/23/18 19:00 07:00 Intake Total 480 ml Balance 480 ml Intake Oral 480 ml # Voids 4 # Bowel Movements 1 Laboratory Tests Test 11/23/18 05:48 White Blood Count 5.6 K/UL (4.8-10.8) Red Blood Count 3.08 M/UL (4.70-6.10) L Hemoglobin 10.6 G/DL (14.2-18.0) L Hematocrit 30.8 % (42.0-52.0) L Mean Corpuscular Volume 100 FL (80-99) H Mean Corpuscular Hemoglobin 34.3 PG (27.0-31.0) H Mean Corpuscular Hemoglobin Concent 34.3 G/DL (32.0-36.0) Red Cell Distribution Width 11.8 % (11.6-14.8) Platelet Count 393 K/UL (150-450) Mean Platelet Volume 4.5 FL (6.5-10.1) L Neutrophils (%) (Auto) 58.4 % (45.0-75.0) Lymphocytes (%) (Auto) 28.1 % (20.0-45.0) Monocytes (%) (Auto) 10.3 % (1.0-10.0) H Eosinophils (%) (Auto) 2.3 % (0.0-3.0) Basophils (%) (Auto) 1.0 % (0.0-2.0) Sodium Level 140 MMOL/L (136-145) Potassium Level 4.1 MMOL/L (3.5-5.1) Chloride Level 105 MMOL/L (98-107) Carbon Dioxide Level 25 MMOL/L (21-32) Anion Gap 10 mmol/L (5-15) Blood Urea Nitrogen 17 mg/dL (7-18) Creatinine 0.6 MG/DL (0.55-1.30) Estimat Glomerular Filtration Rate > 60 mL/min (>60) Glucose Level 263 MG/DL (74-106) #H Calcium Level 7.9 MG/DL (8.5-10.1) L Height (Feet): 5 Height (Inches): 5.00 Weight (Pounds): 98 General Appearance: WD/WN, no apparent distress, alert Cardiovascular: normal rate Respiratory/Chest: normal breath sounds, no respiratory distress Abdominal Exam: normal bowel sounds, non tender, soft Extremities: normal range of motion, non-tender Moriah Dang NP Nov 23, 2018 12:42
--- NOTE | 2018-11-23 13:23 | NUR ---
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 99.5 HR 81 RR 19 B/P 99/59 GLU 263 IS: MIDODRINE PO LEVEMIR SUBC HEPARIN SUBC MED/SURG STATUS
--- NOTE | 2018-11-23 15:00 | Infectious Diseases Prog Note ---
Assessment/Plan Assessment/Plan IMPRESSION: Chronic abdominal pain associated with nausea vomiting. The history of fungal infection, diabetes mellitus with diabetes ketoacidosis/ uncontrolled DM cachexia, severe protein malnutrition, significant weight loss, homeless, history of polysubstance abuse, leukopenia Fatty liver Gallbladder polyp RECOMMENDATION: We will try to obtain previous diagnosis and treatment from [facility]. We will observe off antibiotics for now. Subjective ROS Limited/Unobtainable: Yes Constitutional: Denies: fever Allergies: Coded Allergies: No Known Allergies (Unverified , 11/15/18) Objective Vital Signs Last 24 Hour Vital Signs Date Time Temp Pulse Resp B/P (MAP) Pulse Ox O2 Delivery O2 Flow Rate FiO2 11/23/18 12:00 98.7 71 20 127/79 (95) 100 11/23/18 09:00 Room Air 11/23/18 08:00 99.5 81 19 99/59 (72) 95 11/23/18 04:00 99.2 81 16 96/59 (71) 97 11/23/18 00:00 99.3 77 16 101/58 (72) 98 11/22/18 20:13 Room Air 11/22/18 20:00 100.1 85 15 99/61 (74) 98 11/22/18 16:00 98.7 88 18 115/65 (82) 98 Height (Feet): 5 Height (Inches): 5.00 Weight (Pounds): 98 General Appearance: no acute distress HEENT: mucous membranes moist Respiratory/Chest: lungs clear Cardiovascular: normal rate Abdomen: soft, non tender Extremities: no edema Neurologic/Psychiatric: other - sleeping Laboratory Tests Test 11/23/18 05:48 White Blood Count 5.6 K/UL (4.8-10.8) Red Blood Count 3.08 M/UL (4.70-6.10) L Hemoglobin 10.6 G/DL (14.2-18.0) L Hematocrit 30.8 % (42.0-52.0) L Mean Corpuscular Volume 100 FL (80-99) H Mean Corpuscular Hemoglobin 34.3 PG (27.0-31.0) H Mean Corpuscular Hemoglobin Concent 34.3 G/DL (32.0-36.0) Red Cell Distribution Width 11.8 % (11.6-14.8) Platelet Count 393 K/UL (150-450) Mean Platelet Volume 4.5 FL (6.5-10.1) L Neutrophils (%) (Auto) 58.4 % (45.0-75.0) Lymphocytes (%) (Auto) 28.1 % (20.0-45.0) Monocytes (%) (Auto) 10.3 % (1.0-10.0) H Eosinophils (%) (Auto) 2.3 % (0.0-3.0) Basophils (%) (Auto) 1.0 % (0.0-2.0) Sodium Level 140 MMOL/L (136-145) Potassium Level 4.1 MMOL/L (3.5-5.1) Chloride Level 105 MMOL/L (98-107) Carbon Dioxide Level 25 MMOL/L (21-32) Anion Gap 10 mmol/L (5-15) Blood Urea Nitrogen 17 mg/dL (7-18) Creatinine 0.6 MG/DL (0.55-1.30) Estimat Glomerular Filtration Rate > 60 mL/min (>60) Glucose Level 263 MG/DL (74-106) #H Calcium Level 7.9 MG/DL (8.5-10.1) L Current Medications Medications (Trade) Dose Ordered Sig/Yasemin Route PRN Reason Start Time Stop Time Status Last Admin Dose Admin Acetaminophen (Tylenol) 650 mg Q6H PRN ORAL Mild Pain/Temp > 100.5 11/16/18 17:30 12/15/18 17:29 11/22/18 17:38 Acetaminophen/ Hydrocodone Bitart ([place] 5/325) 1 tab Q8H PRN ORAL For pain 7-10 11/18/18 16:45 11/25/18 16:44 11/22/18 08:53 Dextrose (Dextrose 50%) 25 ml Q30M PRN IV Hypoglycemia 11/17/18 06:30 12/17/18 06:29 Dextrose (Dextrose 50%) 50 ml Q30M PRN IV Hypoglycemia 11/17/18 06:30 12/17/18 06:29 Docusate Sodium (Colace) 100 mg TID ORAL 11/21/18 13:00 12/17/18 08:59 11/23/18 13:20 Heparin Sodium (Porcine) (Heparin 5000 units/ml) 5,000 units EVERY 12 HOURS SUBQ 9/4/19 21:00 12/16/18 08:59 11/23/18 08:24 Insulin Aspart (NovoLOG) BEFORE MEALS AND HS SUBQ 11/16/18 21:00 12/16/18 06:29 11/23/18 06:04 Insulin Aspart (NovoLOG) 8 units NOVOTIAC SUBQ 11/17/18 06:30 12/16/18 06:29 11/23/18 06:04 Insulin Detemir (Levemir) 16 units BID SUBQ 11/19/18 09:00 12/17/18 08:59 11/23/18 08:24 Midodrine (Pro-Amatine) 5 mg THREE TIMES A DAY ORAL 11/22/18 13:00 12/21/18 09:44 11/23/18 13:20 Ondansetron HCl (Zofran) 4 mg Q6H PRN IVP Nausea & Vomiting 11/16/18 17:30 12/15/18 17:29 Pantoprazole (Protonix) 40 mg DAILY ORAL 11/16/18 19:45 12/16/18 19:44 11/23/18 08:21 Sang Wright MD Nov 23, 2018 15:00
--- NOTE | 2018-11-23 15:15 | NUR ---
NURSE NOTES: Called [facility] for regarding release of protected health information on most recent admission (apr, 2018) including endoscopy report. They said they have received it and said they'll be sending the information as soon as possible.
--- NOTE | 2018-11-23 19:39 | NUR ---
HAND-OFF: Report given to JUSTIN Jerome.
--- NOTE | 2018-11-23 20:00 | NUR ---
NURSE NOTES: Patient received in bed, awake and alert. Denies pain or discomfort at this time. IV is intact. Call light in reach. Will monitor.
--- NOTE | 2018-11-23 22:00 | Progress Note ---
DATE: 11/23/2018 The patient's shortness of breath improved. No acute events. Hemodynamically stable. The patient is waiting for placement. DKA has resolved. Shortness of breath resolved. Abdominal pain and vomiting have improved dramatically. No vomiting. ASSESSMENT AND PLAN: Awaiting placement. DKA has resolved. Blood sugars are improving. Klever Vee M.D. DR: ELYSE JOB#: [id number] CC:
[2018-11-24 05:00] VITALS: BP 93/52
[2018-11-24 05:45] LABS: BASOPHILS % (AUTO) 1.6 % (0.0-2.0); EOSINOPHILS % (AUTO) 3.9 % (0.0-3.0); HEMATOCRIT 32.4 % (42.0-52.0); HEMOGLOBIN 10.7 G/DL (14.2-18.0); LYMPHOCYTES % (AUTO) 41.8 % (20.0-45.0); MEAN CORPUSCULAR VOLUME 103 FL (80-99); MONOCYTES % (AUTO) 10.8 % (1.0-10.0); NEUTROPHILS % (AUTO) 41.9 % (45.0-75.0); PLATELET COUNT 431 K/UL (150-450); RED BLOOD COUNT 3.15 M/UL (4.70-6.10); WHITE BLOOD COUNT 4.6 K/UL (4.8-10.8)
[2018-11-24] MEDS: NovoLOG Insulin Flexpen SUBQ SCH ×6 (05:53→17:22)
[2018-11-24 05:57] LABS: ANION GAP 8 mmol/L (5-15); BLOOD UREA NITROGEN 16 mg/dL (7-18); CALCIUM 8.5 MG/DL (8.5-10.1); CARBON DIOXIDE 27 MMOL/L (21-32); CHLORIDE 106 MMOL/L (98-107); CREATININE 0.4 MG/DL (0.55-1.30); SODIUM 141 MMOL/L (136-145)
--- NOTE | 2018-11-24 07:17 | General Progress Note ---
Assessment/Plan Problem List: (1) Diabetes mellitus with ketoacidosis ICD Codes: E11.10 - Type 2 diabetes mellitus with ketoacidosis without coma SNOMED: 92802328, 410741347 (2) Hyperglycemia ICD Codes: R73.9 - Hyperglycemia, unspecified SNOMED: 33383193 (3) Abdominal pain ICD Codes: R10.9 - Unspecified abdominal pain SNOMED: 10776045 (4) Nausea & vomiting ICD Codes: R11.2 - Nausea with vomiting, unspecified SNOMED: 34695426 Status: stable Assessment/Plan: continue Levemir 16 units bid continue Novolog 8 units ac tid continue NISS ac / hs Rx for diabetic supplies and insulin left in chart Subjective Allergies: Coded Allergies: No Known Allergies (Unverified , 11/15/18) All Systems: reviewed and negative except above Subjective events noted labile glucose Item Value Date Time Bedside Blood Glucose 312 mg/dl H 11/24/18 0600 Bedside Blood Glucose 187 mg/dl H 11/23/182012 Bedside Blood Glucose 148 mg/dl H 11/23/18 1749 Bedside Blood Glucose 110 mg/dl 11/23/18 1135 Bedside Blood Glucose 277 mg/dl H 11/23/18 0824 Objective Last 24 Hour Vital Signs Date Time Temp Pulse Resp B/P (MAP) Pulse Ox O2 Delivery O2 Flow Rate FiO2 11/24/18 05:00 97.9 74 20 93/52 (66) 99 11/23/18 23:23 99.9 82 20 104/65 (78) 100 11/23/18 21:00 Room Air 11/23/18 20:14 98.6 75 20 101/62 (75) 99 11/23/18 16:00 97.1 91 20 133/58 (83) 99 11/23/18 12:00 98.7 71 20 127/79 (95) 100 11/23/18 09:00 Room Air 11/23/18 08:00 99.5 81 19 99/59 (72) 95 Intake and Output 11/23/18 11/24/18 18:59 06:59 Intake Total 960 ml 600 ml Output Total 1200 ml 700 ml Balance -240 ml -100 ml Intake Oral 960 ml 600 ml Output Urine Total 1200 ml 700 ml # Voids 3 Laboratory Tests 11/24/18 04:50: White Blood Count 4.6L, Red Blood Count 3.15L, Hemoglobin 10.7L, Hematocrit 32.4L, Mean Corpuscular Volume 103H, Mean Corpuscular Hemoglobin 33.9H, Mean Corpuscular Hemoglobin Concent 33.0, Red Cell Distribution Width 12.0, Platelet Count 431, Mean Platelet Volume 4.5L, Neutrophils (%) (Auto) 41.9L, Lymphocytes (%) (Auto) 41.8, Monocytes (%) (Auto) 10.8H, Eosinophils (%) (Auto) 3.9H, Basophils (%) (Auto) 1.6, Sodium Level 141, Potassium Level 4.0, Chloride Level 106, Carbon Dioxide Level 27, Anion Gap 8, Blood Urea Nitrogen 16, Creatinine 0.4L, Estimat Glomerular Filtration Rate > 60, Glucose Level 223H, Calcium Level 8.5 Height (Feet): 5 Height (Inches): 5.00 Weight (Pounds): 99 General Appearance: no apparent distress Neck: normal alignment Cardiovascular: normal rate Abdomen: normal bowel sounds Objective Current Medications Medications (Trade) Dose Ordered Sig/Yasemin Route PRN Reason Start Time Stop Time Status Last Admin Dose Admin Acetaminophen (Tylenol) 650 mg Q6H PRN ORAL Mild Pain/Temp > 100.5 11/16/18 17:30 12/15/18 17:29 11/22/18 17:38 Acetaminophen/ Hydrocodone Bitart ([place] 5/325) 1 tab Q8H PRN ORAL For pain 7-10 11/18/18 16:45 11/25/18 16:44 11/22/18 08:53 Dextrose (Dextrose 50%) 25 ml Q30M PRN IV Hypoglycemia 11/17/18 06:30 12/17/18 06:29 Dextrose (Dextrose 50%) 50 ml Q30M PRN IV Hypoglycemia 11/17/18 06:30 12/17/18 06:29 Docusate Sodium (Colace) 100 mg TID ORAL 11/21/18 13:00 12/17/18 08:59 11/23/18 17:47 Heparin Sodium (Porcine) (Heparin 5000 units/ml) 5,000 units EVERY 12 HOURS SUBQ 11/16/18 21:00 12/16/18 08:59 11/23/18 20:09 Insulin Aspart (NovoLOG) BEFORE MEALS AND HS SUBQ 11/16/18 21:00 12/16/18 06:29 11/24/18 05:53 Insulin Aspart (NovoLOG) 8 units NOVOTIAC SUBQ 11/17/18 06:30 12/16/18 06:29 11/24/18 05:53 Insulin Detemir (Levemir) 16 units BID SUBQ 11/19/18 09:00 12/17/18 08:59 11/23/18 17:49 Midodrine (Pro-Amatine) 5 mg THREE TIMES A DAY ORAL 11/22/18 13:00 12/21/18 09:44 11/23/18 17:47 Ondansetron HCl (Zofran) 4 mg Q6H PRN IVP Nausea & Vomiting 11/16/18 17:30 12/15/18 17:29 Pantoprazole (Protonix) 40 mg DAILY ORAL 11/16/18 19:45 12/16/18 19:44 11/23/18 08:21 Merrick Rivera MD Nov 24, 2018 07:17
--- NOTE | 2018-11-24 07:50 | NUR ---
NURSE NOTES: Patient awake, alert x4, on room air, no sign of distress and shortness of breath; no sing of chest pain; IV Left-Upper and Right-Upper arm 20G flushes well; urinal within reach; side rails up x2, breaks engaged, bed at lowest position; will keep on checking blood sugar as scheduled; will keep monitoring.
--- NOTE | 2018-11-24 07:55 | NUR ---
HAND-OFF: Report given to Dominick ANDERSON.
[2018-11-24 08:00] VITALS: BP 124/77
[2018-11-24] MEDS: Docusate 100mg cap ORAL SCH ×3 (09:47→17:20)
[2018-11-24] MEDS: Levemir Flexpen SUBQ SCH (09:49)
[2018-11-24] MEDS: Heparin 5000 units/ml inj SUBQ SCH (09:50)
--- NOTE | 2018-11-24 10:20 | Nephrology Progress Note ---
Assessment/Plan Problem List: (1) Hyperglycemia (2) Electrolyte abnormality (3) Hypotension Assessment Hyperglycemia - admitted with BS over 900 Electrolyte abnormality IDDM Plan start Midodrine- adjust dose stable from renal stand Per Endo ELectrolyte supplement as needed per orders Subjective ROS Limited/Unobtainable: No Objective Objective Last 24 Hour Vital Signs Date Time Temp Pulse Resp B/P (MAP) Pulse Ox O2 Delivery O2 Flow Rate FiO2 11/24/18 08:00 98.1 83 19 124/77 (93) 98 11/24/18 05:00 97.9 74 20 93/52 (66) 99 11/23/18 23:23 99.9 82 20 104/65 (78) 100 11/23/18 21:00 Room Air 11/23/18 20:14 98.6 75 20 101/62 (75) 99 11/23/18 16:00 97.1 91 20 133/58 (83) 99 11/23/18 12:00 98.7 71 20 127/79 (95) 100 Intake and Output 11/23/18 11/24/18 19:00 07:00 Intake Total 960 ml 600 ml Output Total 1200 ml 700 ml Balance -240 ml -100 ml Intake Oral 960 ml 600 ml Output Urine Total 1200 ml 700 ml # Voids 3 Laboratory Tests 11/24/18 04:50: White Blood Count 4.6L, Red Blood Count 3.15L, Hemoglobin 10.7L, Hematocrit 32.4L, Mean Corpuscular Volume 103H, Mean Corpuscular Hemoglobin 33.9H, Mean Corpuscular Hemoglobin Concent 33.0, Red Cell Distribution Width 12.0, Platelet Count 431, Mean Platelet Volume 4.5L, Neutrophils (%) (Auto) 41.9L, Lymphocytes (%) (Auto) 41.8, Monocytes (%) (Auto) 10.8H, Eosinophils (%) (Auto) 3.9H, Basophils (%) (Auto) 1.6, Sodium Level 141, Potassium Level 4.0, Chloride Level 106, Carbon Dioxide Level 27, Anion Gap 8, Blood Urea Nitrogen 16, Creatinine 0.4L, Estimat Glomerular Filtration Rate > 60, Glucose Level 223H, Calcium Level 8.5 Height (Feet): 5 Height (Inches): 5.00 Weight (Pounds): 99 General Appearance: no apparent distress Objective no change Kj Pimentel MD Nov 24, 2018 10:20
--- NOTE | 2018-11-24 10:21 | GI Progress Note ---
Assessment/Plan Problems: (1) Electrolyte abnormality ICD Codes: E87.8 - Other disorders of electrolyte and fluid balance, not elsewhere classified SNOMED: 016354843 (2) Nausea & vomiting ICD Codes: R11.2 - Nausea with vomiting, unspecified SNOMED: 13123777 (3) Abdominal pain ICD Codes: R10.9 - Unspecified abdominal pain SNOMED: 22666185 (4) Diabetes mellitus with ketoacidosis ICD Codes: E11.10 - Type 2 diabetes mellitus with ketoacidosis without coma SNOMED: 44232044, [id number] (5) Hyperglycemia ICD Codes: R73.9 - Hyperglycemia, unspecified SNOMED: 92094197 Status: unchanged Status Narrative Discussed with Dr. Car. Assessment/Plan nausea 2/2 to DKA zofran prn advance diet DM management prn transfusions ppi electrolyte correction cont laxative dc planning The patient was seen and examined at bedside and all new and available data was reviewed in the patients chart. I agree with the above findings, impression and plan. (Patient seen earlier today. Signature stamp does not reflect patient encounter time.). - Surjit Car MD Subjective Gastrointestinal/Abdominal: Reports: abdominal pain Objective Last 24 Hour Vital Signs Date Time Temp Pulse Resp B/P (MAP) Pulse Ox O2 Delivery O2 Flow Rate FiO2 11/24/18 08:00 98.1 83 19 124/77 (93) 98 11/24/18 05:00 97.9 74 20 93/52 (66) 99 11/23/18 23:23 99.9 82 20 104/65 (78) 100 11/23/18 21:00 Room Air 11/23/18 20:14 98.6 75 20 101/62 (75) 99 11/23/18 16:00 97.1 91 20 133/58 (83) 99 11/23/18 12:00 98.7 71 20 127/79 (95) 100 Intake and Output 11/23/18 11/24/18 19:00 07:00 Intake Total 960 ml 600 ml Output Total 1200 ml 700 ml Balance -240 ml -100 ml Intake Oral 960 ml 600 ml Output Urine Total 1200 ml 700 ml # Voids 3 Laboratory Tests Test 11/24/18 04:50 White Blood Count 4.6 K/UL (4.8-10.8) L Red Blood Count 3.15 M/UL (4.70-6.10) L Hemoglobin 10.7 G/DL (14.2-18.0) L Hematocrit 32.4 % (42.0-52.0) L Mean Corpuscular Volume 103 FL (80-99) H Mean Corpuscular Hemoglobin 33.9 PG (27.0-31.0) H Mean Corpuscular Hemoglobin Concent 33.0 G/DL (32.0-36.0) Red Cell Distribution Width 12.0 % (11.6-14.8) Platelet Count 431 K/UL (150-450) Mean Platelet Volume 4.5 FL (6.5-10.1) L Neutrophils (%) (Auto) 41.9 % (45.0-75.0) L Lymphocytes (%) (Auto) 41.8 % (20.0-45.0) Monocytes (%) (Auto) 10.8 % (1.0-10.0) H Eosinophils (%) (Auto) 3.9 % (0.0-3.0) H Basophils (%) (Auto) 1.6 % (0.0-2.0) Sodium Level 141 MMOL/L (136-145) Potassium Level 4.0 MMOL/L (3.5-5.1) Chloride Level 106 MMOL/L (98-107) Carbon Dioxide Level 27 MMOL/L (21-32) Anion Gap 8 mmol/L (5-15) Blood Urea Nitrogen 16 mg/dL (7-18) Creatinine 0.4 MG/DL (0.55-1.30) L Estimat Glomerular Filtration Rate > 60 mL/min (>60) Glucose Level 223 MG/DL (74-106) H Calcium Level 8.5 MG/DL (8.5-10.1) Height (Feet): 5 Height (Inches): 5.00 Weight (Pounds): 99 General Appearance: WD/WN, no apparent distress, alert Cardiovascular: normal rate Respiratory/Chest: normal breath sounds, no respiratory distress Abdominal Exam: normal bowel sounds, non tender, soft Extremities: normal range of motion, non-tender Moriah Dang NP Nov 24, 2018 10:21
--- NOTE | 2018-11-24 10:27 | Pulmonology Progress Note ---
Assessment/Plan Assessment/Plan Pulmonary Progress Note HPI Patient is a 43-year old man with history of Insulin Dependent Diabetes Mellitus who presents with DKA, c/o abdominal pain, nausea fatigue and elevated glucose readings. He had not had insulin in 2 months. He denies recent illness such as fever, chills, nasal congestion, sore throat. No current pulmonary symptoms. Denies any diarrhea, dysuria. Denies injury. Diet being advanced by GI No new complaints, stable Pulmonary Status PMH: Insulin Dependent Diabetes Mellitus Physical Exam Vital Signs Noted General: Awake and alert, comfortable HEENT: NC/AT. EOMI. dry mucous membranes Cardiovascular: Tachycardic. S1 and S2 normal. No murmur appreciated Resp: Normal work of breathing. No cough, wheezing or crackles appreciated Abdomen: Abdomen is soft, nondistended. No significant tenderness.. No masses. No guarding Skin: Intact. No abrasions, laceration or rash over the exposed skin MSK: Palpation of the anterior and posterior element of the medial malleolus of the left ankle. Some edema. Neuro: Awake and alert. Mentating appropriately. Impression: Insulin Dependent Diabetes Mellitus DKA, Hyperglycemia Stable pulmonary status Plan: Advance diet per GI Insulin per Endocrine CXR negative for infiltrate Monitor labs PPX EKG: Rate: normal Rhythm: NSR, no acute changes. Normal intervals. No ischemic changes. Chest X-Ray no consolidation, no effusion, no pneumothorax X-rays of the foot: previous hardware but does not obviously show periprosthetic fracture. He will be admitted for further monitoring. Subjective ROS Limited/Unobtainable: No Allergies: Coded Allergies: No Known Allergies (Unverified , 11/15/18) Objective Last 24 Hour Vital Signs Date Time Temp Pulse Resp B/P (MAP) Pulse Ox O2 Delivery O2 Flow Rate FiO2 11/24/18 08:00 98.1 83 19 124/77 (93) 98 11/24/18 05:00 97.9 74 20 93/52 (66) 99 11/23/18 23:23 99.9 82 20 104/65 (78) 100 11/23/18 21:00 Room Air 11/23/18 20:14 98.6 75 20 101/62 (75) 99 11/23/18 16:00 97.1 91 20 133/58 (83) 99 11/23/18 12:00 98.7 71 20 127/79 (95) 100 Intake and Output 11/23/18 11/24/18 19:00 07:00 Intake Total 960 ml 600 ml Output Total 1200 ml 700 ml Balance -240 ml -100 ml Intake Oral 960 ml 600 ml Output Urine Total 1200 ml 700 ml # Voids 3 Laboratory Tests 11/24/18 04:50: White Blood Count 4.6L, Red Blood Count 3.15L, Hemoglobin 10.7L, Hematocrit 32.4L, Mean Corpuscular Volume 103H, Mean Corpuscular Hemoglobin 33.9H, Mean Corpuscular Hemoglobin Concent 33.0, Red Cell Distribution Width 12.0, Platelet Count 431, Mean Platelet Volume 4.5L, Neutrophils (%) (Auto) 41.9L, Lymphocytes (%) (Auto) 41.8, Monocytes (%) (Auto) 10.8H, Eosinophils (%) (Auto) 3.9H, Basophils (%) (Auto) 1.6, Sodium Level 141, Potassium Level 4.0, Chloride Level 106, Carbon Dioxide Level 27, Anion Gap 8, Blood Urea Nitrogen 16, Creatinine 0.4L, Estimat Glomerular Filtration Rate > 60, Glucose Level 223H, Calcium Level 8.5 Current Medications Medications (Trade) Dose Ordered Sig/Yasemin Route PRN Reason Start Time Stop Time Status Last Admin Dose Admin Acetaminophen (Tylenol) 650 mg Q6H PRN ORAL Mild Pain/Temp > 100.5 11/16/18 17:30 12/15/18 17:29 11/22/18 17:38 Acetaminophen/ Hydrocodone Bitart ([place] 5/325) 1 tab Q8H PRN ORAL For pain 7-10 11/18/18 16:45 11/25/18 16:44 11/22/18 08:53 Dextrose (Dextrose 50%) 25 ml Q30M PRN IV Hypoglycemia 11/17/18 06:30 12/17/18 06:29 Dextrose (Dextrose 50%) 50 ml Q30M PRN IV Hypoglycemia 11/17/18 06:30 12/17/18 06:29 Docusate Sodium (Colace) 100 mg TID ORAL 11/21/18 13:00 12/17/18 08:59 11/24/18 09:47 Heparin Sodium (Porcine) (Heparin 5000 units/ml) 5,000 units EVERY 12 HOURS SUBQ 11/16/18 21:00 12/16/18 08:59 11/24/18 09:50 Insulin Aspart (NovoLOG) BEFORE MEALS AND HS SUBQ 11/16/18 21:00 12/16/18 06:29 11/24/18 05:53 Insulin Aspart (NovoLOG) 8 units NOVOTIAC SUBQ 11/17/18 06:30 12/16/18 06:29 11/24/18 05:53 Insulin Detemir (Levemir) 16 units BID SUBQ 11/19/18 09:00 12/17/18 08:59 11/24/18 09:49 Midodrine (Pro-Amatine) 5 mg THREE TIMES A DAY ORAL 11/22/18 13:00 12/21/18 09:44 11/24/18 09:47 Ondansetron HCl (Zofran) 4 mg Q6H PRN IVP Nausea & Vomiting 11/16/18 17:30 12/15/18 17:29 Pantoprazole (Protonix) 40 mg DAILY ORAL 11/16/18 19:45 12/16/18 19:44 11/24/18 09:47 Solomon Lanier MD Nov 24, 2018 10:27
[2018-11-24 12:00] VITALS: BP 104/67
--- NOTE | 2018-11-24 12:28 | Infectious Diseases Prog Note ---
Assessment/Plan Assessment/Plan IMPRESSION: Chronic abdominal pain associated with nausea vomiting. The history of fungal infection, diabetes mellitus with diabetes ketoacidosis/ uncontrolled DM cachexia, severe protein malnutrition, significant weight loss, homeless, history of polysubstance abuse, leukopenia Fatty liver Gallbladder polyp RECOMMENDATION: There was no record in [facility] at requested date. We will observe off antibiotics for now. In case of discharge f/u with [facility] as outpatient. Subjective ROS Limited/Unobtainable: No Constitutional: Reports: no symptoms Respiratory: Reports: no symptoms Gastrointestinal/Abdominal: Reports: nausea, vomiting, other - abdominal pain Genitourinary: Reports: no symptoms Allergies: Coded Allergies: No Known Allergies (Unverified , 11/15/18) Objective Vital Signs Last 24 Hour Vital Signs Date Time Temp Pulse Resp B/P (MAP) Pulse Ox O2 Delivery O2 Flow Rate FiO2 11/24/18 09:00 Room Air 11/24/18 08:00 98.1 83 19 124/77 (93) 98 11/24/18 05:00 97.9 74 20 93/52 (66) 99 11/23/18 23:23 99.9 82 20 104/65 (78) 100 11/23/18 21:00 Room Air 11/23/18 20:14 98.6 75 20 101/62 (75) 99 11/23/18 16:00 97.1 91 20 133/58 (83) 99 Height (Feet): 5 Height (Inches): 5.00 Weight (Pounds): 99 General Appearance: no acute distress HEENT: mucous membranes moist Respiratory/Chest: lungs clear Cardiovascular: normal rate Abdomen: tender Extremities: no edema Neurologic/Psychiatric: alert, responsive Laboratory Tests Test 11/24/18 04:50 White Blood Count 4.6 K/UL (4.8-10.8) L Red Blood Count 3.15 M/UL (4.70-6.10) L Hemoglobin 10.7 G/DL (14.2-18.0) L Hematocrit 32.4 % (42.0-52.0) L Mean Corpuscular Volume 103 FL (80-99) H Mean Corpuscular Hemoglobin 33.9 PG (27.0-31.0) H Mean Corpuscular Hemoglobin Concent 33.0 G/DL (32.0-36.0) Red Cell Distribution Width 12.0 % (11.6-14.8) Platelet Count 431 K/UL (150-450) Mean Platelet Volume 4.5 FL (6.5-10.1) L Neutrophils (%) (Auto) 41.9 % (45.0-75.0) L Lymphocytes (%) (Auto) 41.8 % (20.0-45.0) Monocytes (%) (Auto) 10.8 % (1.0-10.0) H Eosinophils (%) (Auto) 3.9 % (0.0-3.0) H Basophils (%) (Auto) 1.6 % (0.0-2.0) Sodium Level 141 MMOL/L (136-145) Potassium Level 4.0 MMOL/L (3.5-5.1) Chloride Level 106 MMOL/L (98-107) Carbon Dioxide Level 27 MMOL/L (21-32) Anion Gap 8 mmol/L (5-15) Blood Urea Nitrogen 16 mg/dL (7-18) Creatinine 0.4 MG/DL (0.55-1.30) L Estimat Glomerular Filtration Rate > 60 mL/min (>60) Glucose Level 223 MG/DL (74-106) H Calcium Level 8.5 MG/DL (8.5-10.1) Current Medications Medications (Trade) Dose Ordered Sig/Yasemin Route PRN Reason Start Time Stop Time Status Last Admin Dose Admin Acetaminophen (Tylenol) 650 mg Q6H PRN ORAL Mild Pain/Temp > 100.5 11/16/18 17:30 12/15/18 17:29 11/22/18 17:38 Acetaminophen/ Hydrocodone Bitart ([place] 5/325) 1 tab Q8H PRN ORAL For pain 7-10 11/18/18 16:45 11/25/18 16:44 11/22/18 08:53 Dextrose (Dextrose 50%) 25 ml Q30M PRN IV Hypoglycemia 11/17/18 06:30 12/17/18 06:29 Dextrose (Dextrose 50%) 50 ml Q30M PRN IV Hypoglycemia 11/17/18 06:30 12/17/18 06:29 Docusate Sodium (Colace) 100 mg TID ORAL 11/21/18 13:00 12/17/18 08:59 11/24/18 12:05 Heparin Sodium (Porcine) (Heparin 5000 units/ml) 5,000 units EVERY 12 HOURS SUBQ 11/16/18 21:00 12/16/18 08:59 11/24/18 09:50 Insulin Aspart (NovoLOG) BEFORE MEALS AND HS SUBQ 11/16/18 21:00 12/16/18 06:29 11/24/18 12:07 Insulin Aspart (NovoLOG) 8 units NOVOTIAC SUBQ 11/17/18 06:30 12/16/18 06:29 11/24/18 12:08 Insulin Detemir (Levemir) 16 units BID SUBQ 11/19/18 09:00 12/17/18 08:59 11/24/18 09:49 Midodrine (Pro-Amatine) 5 mg THREE TIMES A DAY ORAL 11/22/18 13:00 12/21/18 09:44 11/24/18 12:05 Ondansetron HCl (Zofran) 4 mg Q6H PRN IVP Nausea & Vomiting 11/16/18 17:30 12/15/18 17:29 Pantoprazole (Protonix) 40 mg DAILY ORAL 11/16/18 19:45 12/16/18 19:44 11/24/18 09:47 Sang Wright MD Nov 24, 2018 12:28
[2018-11-24 16:00] VITALS: BP 110/69
--- NOTE | 2018-11-24 18:05 | NUR ---
NURSE NOTES: Patient left the floor around 1805; primary nurse accompanied patient to the lobby; patient was stable and walking by using cane; patient provided with cane, 2 NovoLog and 2 Levemir insulin pens; Andrew-T, BD Auto shil, Self monitoring Glucose meter, alcohol swaps; Teaching provided at the bed side how to check blood sugar and how to use insulin pen and how to inject subcutaneously; patient demonstrated the teaching provided by nurse; patient and primary nurse signed belonging lists; patient signed the homeless discharge paper; bus token provided; IV access and name tag removed upon discharge. patient provided [place] sandwich;
--- NOTE | 2018-11-25 09:15 | Discharge Summary ---
Discharge Summary Discharge Summary _ DATE OF ADMISSION: 11/15/2018 DATE OF DISCHARGE: 11/24/2018 DISCHARGED BY: Dr. Vee REASON FOR ADMISSION: 43 years old male with past medical history of insulin-dependent diabetes mellitus, presented for evaluation due to abdominal pain, nausea , vomiting and fatigue. Patient reported that he did not eat anything for the last 2 days and felt nauseous. He reported that he did not have insulin for 2 months. Patient by himself was a poor historian , and unable to provide significant history. He denied recent illness. No fever or chills. No sore throat or nasal congestion. Patient did report nonproductive cough. No diarrhea , no dysuria. Patient complained of the left ankle pain, but could not remember a specific injury to his left ankle. Upon evaluation vital signs were stable. Laboratory work-up revealed no leukocytosis ,hemoglobin 11.8 ,hematocrit 33.9. Platelet count 390. Laboratory work-up reveals sodium 129, potassium 3.7. Magnesium 2.0. Anion gap 19. BUN 10, creatinine 0.8. Glucose 903. ABG revealed evidence of metabolic acidosis : pH 7.31 , PCO2 30. Bicarb 15. Stable LFT Albumin 2.7. Urinalysis revealed no evidence of urinary tract infection. EKG revealed sinus rhythm , borderline tachycardia , no acute ischemic changes. Chest x-ray revealed no acute cardiopulmonary pathology. Patient started on insulin drip and IV fluids and admitted to ICU for further management. CONSULTANTS: railroad accountant Dr. Kaleb VALENTINE specialist Dr. Thomas music leader Dr. Pimentel health technician hearing [facility] Patient initially admitted to ICU. Patient was on insulin drip as per protocol and IV fluids. Guard Rail Installer closely followed. When anion gap closed , patient started on long-acting Levemir and short acting NovoLog pre-meals. Sliding scale of insulin was on board as needed. Hemoglobin A1c 13.1. Diabetic diet provided. Doses of Levemir and NovoLog were further optimized based on the blood sugar readings as per health technician hearing. Prescription for diabetic supplies and insulin was written upon discharge. Range Feeder closely followed. Renal parameters and electrolytes were closely monitored. Due to low blood pressure, patient started on midodrine. Hemodynamic status was closely monitored and remained stable. Hyponatremia resolved with IV hydration. Potassium and magnesium were replaced. Box Maker Wood followed. Venous duplex bilateral lower extremity revealed no evidence of acute DVT. Patient initially demonstrated sinus tachycardia , which was due to severe volume depletion , associated with DKA and it resolved. GI specialist followed. Nausea and vomiting were secondary to diabetic ketoacidosis and resolved as diabetic ketoacidosis resolved. Zofran provided symptomatically for relief. Diet was advanced as tolerated, and patient was able to tolerate diet. GI prophylaxis started. Bowel regimen instituted. Hemoglobin hematocrit were closely monitored with goal to keep hemoglobin above 7. Anemia work-up was consistent with anemia of chronic disease. Prior to discharge hemoglobin 10.7, hematocrit 32.4. HIV test was nonreactive. Patient was counseled on abstinence from illicit street drugs. ID specialist seen and evaluated patient. Urine culture revealed mixed gram-positive organisms. Patient remained afebrile , no leukocytosis. Infectious disease specialist recommended to observe patient off antibiotics. All medication were filled upon discharge. Patient was cleared for discharge by all consultants and attending physician. Patient received bus token and nutritional snack prior to discharge. FINAL DIAGNOSES: Diabetic ketoacidosis Diabetes mellitus with hyperglycemia, [id number] with hemoglobin A1c- 13.1 Abdominal pain Nausea and vomiting Sinus tachycardia , secondary to severe volume depletion associated with the DKA resolved Hyponatremia -resolved Electrolyte abnormality Hypotension Severe protein calorie malnutrition Homeless History of polysubstance abuse Fatty liver DISCHARGE MEDICATIONS: List of medication was sent with patient. All medications were filled prior to discharge and provided to patient. The nurse was taught patient how to use insulin pen. Patient provided correct return demonstration. DISCHARGE INSTRUCTIONS: Patient was discharged . Follow up with primary care provider in one week. Reinforced compliance with diabetic medication regimen and diabetic diet. Patient was counseled on abstinence from illicit street drugs. I have been assigned to dictate discharge summary for this account. I was not involved in the patient's management. Yumiko Gilmore NP Nov 25, 2018 09:15
== END 2018-11-24 18:03 | disposition home or self-care (01) | DRG 420 ==
LOC: EDBD 17:47 → EMR 18:30 → EDBEDREQSVC 20:06 → ICU 20:20 → EDBEDREQ 21:14 → 2W 23:20 → 4E 11-16 17:00
DX: E11.10 Type 2 diabetes mellitus with ketoacidosis without coma (principal); Z91.14 Patient's other noncompliance with medication regimen; D63.8 Anemia in other chronic diseases classified elsewhere; E11.65 Type 2 diabetes mellitus with hyperglycemia; R00.0 Tachycardia, unspecified; E87.1 Hypo-osmolality and hyponatremia; E87.8 Other disorders of electrolyte and fluid balance, not elsewhere classified; E86.9 Volume depletion, unspecified; I95.9 Hypotension, unspecified; E43 Unspecified severe protein-calorie malnutrition; Z59.0 Homelessness; F19.10 Other psychoactive substance abuse, uncomplicated; K76.0 Fatty (change of) liver, not elsewhere classified; F17.200 Nicotine dependence, unspecified, uncomplicated; Z79.4 Long term (current) use of insulin; F14.11 Cocaine abuse, in remission; G89.29 Other chronic pain; R10.9 Unspecified abdominal pain
CPT/HCPCS: 36415; 36600; 71045; 74176; 76700; 80048; 80053; 80061; 80076; 81001; 81003; 82009; 82533; 82607; 82728; 82746; 82803; 82962; 82977; 83036; 83540; 83550; 83690; 83735; 83880; 84100; 84550; 85007; 85025; 86140; 86703; 87081; 87086; 93005; 93970; 96361; 96365; 96366; 96367; 99291; J1815; S5561